=== PATIENT | female | born 2005 | race Caucasian/White ===

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

== ENCOUNTER 2025-09-04 19:15 | Observation (INO) | payer OTHER, SELFPAY ==
[2025-09-04] VITALS (15 sets, daily range): BP systolic 112–150; BP diastolic 52–92; PULSE 80–134; RESP 14–21; TEMP 36.7; O2SAT 98–100; BMI 23.4
--- OUTSIDE RECORDS SUMMARY | 2025-09-04 01:37 | XMS_ITS | Encounter Summary ---
Author Organization [facility] Address [address] [place] [address] Care Team Providers Care Verify Rep Name Role Phone Dedra Jo MD Primary Care Provider [phone] Reason for Visit * Reason Comments Fall From second floor aw kimberly * Auth/Cert (Routine) Specialty Diagnoses / Procedures Referred By Isacc t Referred To Contact Neurology Ponce Gillis ([facility])MD [address] [place] [phone] Phone: tel: fax: [facility] [address] [address] Phone: tel: fax: Referral ID Status Reason Start Date Expiration Date Visits Re quested Visits Authorized [id number] 1 1 Encounter Details Date Type Department Care Team (Latest Contact Info) Description 09/04/2025 1:37 AM GROCERY BUYER - 09/04/2025 2:18 PM GROCERY BUYER Hospital Encounter [facility] [address] [phone] Pacheco Cisneros MD [address] [place] [phone] Ponce Gillis ([facility])MD 1 [facility] [address] [place] [address] Fall Discharge Disposition: Home or Self Care Social History Tobacco Use Types Packs/Day Years Used Date Smoking Tobacco: Never Smokeless Tobacco: Never Alcohol Use Standard Drinks/Week Comments Never 0 (1 standard drink = 0.6 oz pur e alcohol) Food Insecurity Answer Date Recorded Do you find you are eating l ess than you should because you can t pay for food? No 09/04/2025 Transportation Needs Answer Date Record ed Have you gone without health care because you didn t have a way to get there? Or worry about transportation for future doctor visits, pick up truck driver medication, etc.? No 2024 Housing Stability Answer Date Recorded Do you worry you won t have a steady place to sleep or struggle to pay rent or mortgage? No 09/04/2025 Utility Needs Answer Date Recorded Do you have difficulty payin g for utility costs (electric, water or gas bills)? No 09/04/2025 Medication Needs Answer Date Recorded Have you skipped taking medi cation due to cost or worry you can t afford new medications? No 09/04/2025 Feeling Safe Answer Date Recorded Are you in a relationship wi th someone who hurts you emotionally and/or physically? No 09/04/2025 Food Insecurity Answer Date Recorded Patient needs follow up regardin 09/04/2025 Transportation Needs Answer Date Record ed Patient needs follow up regardin 09/04/2025 Utility Needs Answer Date Recorded Patient needs follow up regardin 09/04/2025 Comments Unknown Sex and Gender Information Value Date Recorded Sex Assigned at Not on file Legal Sex Female 7:03 AM GROCERY BUYER Gender Identity Not on file Sexual Orientation Not on file documented as of this encounter Last Filed Vital Signs Vital Sign Reading Time Taken Comments Blood Pressure 128/58 09/04/2025 7:00 AM GROCERY BUYER Pulse 103 09/04/2025 3:11 AM GROCERY BUYER Temperature 37 C (98.6 F) 09/04/2025 6:55 AM GROCERY BUYER Respiratory Rate 16 09/04/2025 7:00 AM GROCERY BUYER Oxygen Saturation 100% 09/04/2025 7:00 AM GROCERY BUYER Inhaled Oxygen Concentration - - Weight 58 kg (127 lb 13.9 oz) 09/04/2025 1:45 AM GROCERY BUYER Height 152.4 cm (5') 09/04/2025 1:45 AM GROCERY BUYER Body Mass Index 24.97 09/04/2025 1:45 AM GROCERY BUYER documented in this encounter Discharge Instructions * Discharge Instructions* Lakisha Kapadia RN - 09/04/2025 11:39 AM GROCERY BUYER Patient Care Instructions: Should you experience any of the following symptoms after discharge, contact your healthcare provider: Increase in pain Temperature greater than 101 degrees Fahrenheit. Светлана Patel is being discharged via: private vehicle to Home Светлана Patel is accompanied by: Family member A nurse has reviewed my medication(s), side effects and discharge instructions with me and/or my caregivers. Reference Information: An ???After your visit?? education sheet was printed and given to the patient/family at discharge?Yes Patient/family initials A copy of this information is available to the following physicians who has/have access to the electronic health record and he/she have been notified via electronic transmission Ponce Gillis Chi, MD and Dedra Jo MD ERY BUYER * Discharge Instr - Activity* Lakisha Kapadia RN - 09/04/2025 11:38 AM GROCERY BUYER See Discharge Instructions. ERY BUYER * Discharge Instr - Diet* Lakisha Kapadia RN - 09/04/2025 11:38 AM GROCERY BUYER See Discharge Instructions. ERY BUYER * Attachments The following attachments cannot be sent through Care Everywhere. * Arm Fracture (Czech) * Hydrocodone Combination Products (Czech) documented in this encounter Medications at Time of Discharge hydrOXYzine pamoate (VISTARIL) 25 mg capsule Take 25 mg by mouth every 6 hours. 14 days 04/04/2025 HYDROcodone-acet aminophen (NORCO) 10-325 mg TabletIndication s:Closed fracture of distal ends of radius and ulna of both forearms, initial encounter Take 1 Tablet by mouth every 4 hours as needed for Pain. Max Daily Amount: 6 Tablets 20 Tablet 09/04/2025 naloxone (NARCAN) 4 mg/spray [place], Non-Aerosol EMERGENCY USE ONLY: Administer 1 spray (4 mg) in one nostril one time. May repeat in alternating nostrils every 2-3 min until responsive or EMS arrives. 2 Each 3 09/04/2025 ondansetron (ZOFRAN ODT) 4 mg Tablet, Rapid Dissolve Take 1 Tablet (4 mg) by mouth every 8 hours as needed for Nausea/Emesis. Dissolve tablet on top of tongue, then swallow with saliva. 30 Tablet 09/04/2025 MELATONIN ORAL Take by mouth. documented as of this encounter Progress Notes * Lakisha Kapadia RN - 09/04/2025 11:50 AM CST Spoke to pt and family about needing to follow up with ortho as soon as possible. ([place] not live[place] and is returning to home state) ERY BUYER documented in this encounter H&P Notes * Ponce Gillis Chi, MD - 09/04/2025 10:07 AM CST History & Physical PATIENT: Светлана Patel AGE: 20 y.o. CSN: [id number] Date of : 2005 Primary Care Doctor: Dedra oJ MD Referring Physician: ED Chief Complaint: 20 y.o. female presenting with fall HPI: 20 y/o woman brought to ED last night after fall from 2nd story balcony, unknown mechanism, + ETOH,landed on her outstretched wrists, denies head trauma or LOC. She sustained bilateral wrist fractures which were reduced and splinted in the ED. This morning she complains of some back and wrist pain. She denies shortness of breath, chest pain, pelvic, abdominal or lower extremity pain. Past Medical History: Past Medical History: Diagnosis Date Allergy Headache Hearing reduced Patient denies relevant medical history Past Surgical History: Past Surgical History: Procedure Laterality Date PT DENIES RELEVANT SURGICAL HISTORY Current Medications: Outpatient Medications Marked as Taking for the 09/04/25 encounter (Hospital Encounter) Medication Sig Dispense Refill hydrOXYzine pamoate (VISTARIL) 25 mg capsule Take 25 mg by mouth every 6 hours. 14 days Medication Allergies:No Known Allergies Family History: Family History Problem Relation Name Age of Onset Healthy Father Healthy Mother Social History: Social History Tobacco Use Smoking status: Never Smokeless tobacco: Never Substance Use Topics Alcohol use: Never Review of Systems: negative except as per HPI Physical Exam: BP 128/58 Pulse (!) 103 Temp 98.6 ??F (37 ??C) (Oral) Resp 16 Ht 5' (1.524 m) Wt 58 kg (127 lb 13.9 oz) SpO2 100% BMI 24.97 kg/m?? General Appearance: alert, in no distress, Head: atraumatic, Normocephalic, without obvious abnormality Eyes: conjunctivae/corneas clear. PERRL, EOM's intact. Nose: Nares normal. Septum midline. Mucosa normal. Throat: Lips, mucosa (moist), and tongue normal. Teeth and gums normal, Neck: supple, symmetrical, trachea midline, no C spine tenderness Heart: regular rate and rhythm Chest Wall: no tenderness Lungs: normal respiratory effort Abdomen: Soft, non-tender. Back: symmetric, no curvature. ROM normal. No CVA tenderness. Extremities: bilateral upper extremity forearm splints; neurovascularly intact; lower extremities negative for trauma with normal ROM Neurologic: Alert and oriented X 3 Skin: Skin color, texture, turgor normal. No rashes or lesions Data Review: CBC: Lab Results Component Value Date/Time WBC 10.8 09/04/2025 02:05 AM RBC 4.11 (L) 09/04/2025 02:05 AM HGB 13.0 09/04/2025 02:05 AM HCT 35.9 (L) 09/04/2025 02:05 AM PLT 457 (H) 09/04/2025 02:05 AM BMP: Lab Results Component Value Date/Time NA 140 09/04/2025 02:05 AM K 3.0 (LL) 09/04/2025 02:05 AM CL 107 09/04/2025 02:05 AM CO2 14 (LL) 09/04/2025 02:05 AM CA 9.1 09/04/2025 02:05 AM BUN 12 09/04/2025 02:05 AM CREAT 0.72 09/04/2025 02:05 AM GLUCOSE 127 (H) 09/04/2025 02:05 AM ANIONGAP 19 (H) 09/04/2025 02:05 AM LFTS: Lab Results Component Value Date/Time TOTALPROTEIN 7.9 09/04/2025 02:05 AM ALBUMIN 4.4 09/04/2025 02:05 AM BILITOTAL 0.5 09/04/2025 02:05 AM ALKPHOS 64 09/04/2025 02:05 AM AST 254 (H) 09/04/2025 02:05 AM ALT 183 (H) 09/04/2025 02:05 AM Coagulation: Lab Results Component Value Date/Time PT 11.4 09/04/2025 02:05 AM INR 1.0 09/04/2025 02:05 AM APTT 22.0 (L) 09/04/2025 02:05 AM Radiology review: I personally reviewed the images of her CT head, C spine, chest/abdomen/pelvis and X-rays of her bilateral upper extremities PROCEDURE: CT Chest, Abdomen and Pelvis With Contrast DATE: 09/04/2025 3:49 AM COMPARISON: None HISTORY: Polytrauma, blunt TECHNIQUE: Post contrast CT with sagittal and coronal 2-D reformats. Automated CT Dose Reduction technique. FINDINGS: Motion blur CT CHEST: No obvious pneumothorax or pleural effusion. No pericardial effusion. Nonspecific subpleural densities in the lateral aspect of the right middle lobe. Subjacent to the right rib fractures cannot be excluded on this motion limited exam. Heart size is normal. Normal enhancement of central vessels. No mediastinal hematoma. Tracheobronchial tree is patent. No subcutaneous emphysema. No obvious fracture in the visualized thoracic spine. Subtle fractures of the sternum cannot be excluded on this motion limited exam CT ABDOMEN: Liver, spleen, both adrenal glands, pancreas and the right kidney are normal. The left kidney demonstrates an interpolar simple cyst measuring approximately 1.7 cm in diameter. Gallbladder is well distended. Normal enhancement of IVC and aorta. No ascites, hernias, free air in the peritoneal cavity or bowel obstruction/ileus. No obvious fractures or lumbar spine. CT PELVIS: Intrauterine contraceptive device is seen. Small amount of fluid is seen in the cul-de-sac measuring 13 Hounsfield units in density. A small irregularity is seen in the left ovary probably due to recent ovulation. Right ovary appears normal in size. Mild stool burden is noted in the distal colon. Moderate stool burden is seen in the cecum. The appendix appears normal. The bladder is well distended. No hernias. No pelvic muscle hematomas. Bilateral SI joints, pubic symphysis and hip joints appear well aligned. Signed by Chace Camilo MD 09/04/2025 4:[address] scans are performed using dose optimization techniques as appropriate to a performed exam including automated exposure control and/or standardized protocols for targeted exams where dose is matched to indication/reason for exam/patient size. IMPRESSION: 1. Nonspecific subpleural densities in the lateral aspect of the right middle lobe. Subjacent right rib fractures cannot be excluded on this motion limited exam. 2. No obvious fracture in the thoracic spine. 3. No obvious fracture in the lumbar spine. 4. Small amount of free fluid in the cul-de-sac. This could be due to recent ovulation. 5. Simple cyst in the left kidney. No further workup is necessary. CT of the thoracic and lumbar spine: 09/04/2025 4:30 AM HISTORY: 20 years old Female with Back trauma, no prior imaging (Age >= 16y). COMPARISON: None available TECHNIQUE: Multiple axial contiguous images were obtained through the thoracic and lumbar spine without intravenous contrast administered. Coronal and sagittal reconstructed images were also obtained and examined. This exam was performed according to our departmental dose-optimization program, which includes automated exposure control, adjustment of the mA and/or KV according to the patient's size and/or use of iterative reconstruction technique. FINDINGS: The visualized vertebral bodies appear to be well aligned. No significant loss of vertebral body height is seen. No significant disc space narrowing is seen. There are no findings to suggest an acute fracture or subluxation. The visualized sacroiliac joints appear grossly unremarkable. The visualized kidneys demonstrate no evidence of hydronephrosis. No large pleural effusion is seen. Signed by Afua Pacheco DO 09/04/2025 4:[address] scans are performed using dose optimization techniques as appropriate to a performed exam including automated exposure control and/or standardized protocols for targeted exams where dose is matched to indication/reason for exam/patient size. IMPRESSION: There are no findings to suggest an acute fracture or subluxation at the thoracic or lumbar spine. CT CERVICAL SPINE: 09/04/2025 4:29 AM TECHNIQUE: Axial contiguous images were obtained through the cervical spine without intravenous contrast. Sagittal and coronal reconstructions were also reviewed. This exam was performed according to our departmental dose-optimization program, which includes automated exposure control, adjustment of the mA and/or KV according to the patient's size and/or use of iterative reconstruction technique. COMPARISON: None available HISTORY: 20 years old Female with Neck trauma, dangerous injury mechanism (Age 16-64y). FINDINGS: The vertebral bodies appear well aligned. The vertebral body heights appear well maintained. No significant pre-vertebral soft tissue swelling is noted. No acute fracture or subluxation is noted. No significant intervertebral disc space narrowing is seen. The visualized brain parenchyma appears unremarkable. The craniocervical junction is unremarkable. Signed by Afua Pacheco DO 09/04/2025 4:[address] scans are performed using dose optimization techniques as appropriate to a performed exam including automated exposure control and/or standardized protocols for targeted exams where dose is matched to indication/reason for exam/patient size. IMPRESSION: There are no findings to suggest an acute fracture or subluxation within the cervical spine. PROCEDURE: CT of the brain without intravenous contrast DATE: 09/04/2025 COMPARISON: None HISTORY: Closed head injury. Patient fell from second-story TECHNIQUE: Axial images were obtained through the brain without intravenous contrast. CT dose modulation was utilized. FINDINGS: The ventricles are midline and normal in size. There is no midline shift or mass effect. No intracranial hemorrhage or extra-axial fluid collection is identified. The calvarium is intact. The visualized paranasal sinuses are well aerated. Signed by Lisa Osborn MD 09/04/2025 4:[address] scans are performed using dose optimization techniques as appropriate to a performed exam including automated exposure control and/or standardized protocols for targeted exams where dose is matched to indication/reason for exam/patient size. IMPRESSION: No acute intracranial process. Left Wrist Date: 09/04/2025 1:58 AM History: Left wrist pain. Initial visit. Technique: AP, lateral and both oblique projections FINDINGS: Normal density of the skeletal structures. Comminuted distal radius fracture with dorsal displacement, impaction and overlap of the fragments. Disruption of the DRUJ is also suspected, intra-articular extension of the fracture at the radiocarpal joint. Deformity of the wrist related to displacement of the hand with the distal radius fragment, dorsal. Signed by Florencio Bloom MD 09/04/2025 7:23 AM IMPRESSION: Colles' type fracture; intra-articular extension. Dorsal displacement. Assessment: 20 y/o woman with bilateral wrist fractures, no other acute injuries Plan: Orthopedic surgery consulted - recommending surgical repair as outpatient in [place] where she lives No other acute injuries Stable for discharge Ponce Gillis MD ERY BUYER documented in this encounter Consult Notes * Eddy Urban MD - 09/04/2025 7:04 AM CST ORTHOPEDIC CONSULTATION DATE: 09/04/2025 PATIENT: Светлана Patel/20 y.o./female : 2005 ADMIT DATE: 09/04/2025 ADMITTING PHYSICIAN: @[email or web address]@ PCP: Dedra Jo MD REASON FOR CONSULTATION: bilateral wrist injuries HPI: Patient is a 20 y.o. female presents with a fall from significant height off a balcony and bilateral wrist pain.. Patient Active Problem List Diagnosis Code Recurrent acute otitis media H66.90 Dysfunction of eustachian tube H69.90 Closed fracture of temporal bone ([facility]) S02.19XA Fall W19.XXXA Closed fracture of left side of base of skull ([facility]) S02.102A Abrasion of left shoulder S40.212A Scalp contusion S00.03XA Closed fracture of distal ends of radius and ulna of both forearms S52.501A, S52.601A, S52.502A, S52.602A Past Medical History: Diagnosis Date Allergy Headache Hearing reduced Patient denies relevant medical history Past Surgical History: Procedure Laterality Date PT DENIES RELEVANT SURGICAL HISTORY Family History Problem Relation Name Age of Onset Healthy Father Healthy Mother Social History Tobacco Use Smoking status: Never Smokeless tobacco: Never Substance Use Topics Alcohol use: Never (Not in a hospital admission) Allergies: No Known Allergies Review of systems: Pertinent items are noted in HPI. PHYSICAL EXAMINATION: Patient Vitals for the past 8 hrs: BP Temp Temp src Pulse Resp SpO2 Height Weight 09/04/25 0655 137/52 98.6 ??F (37 ??C) Oral -- 15 100 % -- -- 09/04/25 0650 125/65 -- -- -- 16 99 % -- -- 09/04/25 0645 133/57 -- -- -- 19 100 % -- -- 09/04/25 0640 133/62 -- -- -- 16 100 % -- -- 09/04/25 0635 125/56 -- -- -- 17 100 % -- -- 09/04/25 0630 (!) 119/91 -- -- -- 18 100 % -- -- 09/04/2525 124/76 -- -- -- -- 100 % -- -- 09/04/25 0620 138/64 -- -- -- 17 100 % -- -- 09/04/2515 -- -- -- -- 16 100 % -- -- 09/04/25 0610 136/60 -- -- -- 19 100 % -- -- 09/04/25 0605 -- -- -- -- 18 -- -- -- 09/04/25 0600 -- -- -- -- 20 -- -- -- 09/04/25 0555 -- -- -- -- 16 -- -- -- 09/04/25 0445 138/64 -- -- -- -- 98 % -- -- 09/04/25 0430 136/61 -- -- -- 19 100 % -- -- 09/04/25 0415 135/63 -- -- -- 16 100 % -- -- 09/04/25 0410 -- -- -- -- 18 100 % -- -- 09/04/25 0405 139/62 -- -- -- 16 100 % -- -- 09/04/25 0340 -- 99.2 ??F (37.3 ??C) Oral -- -- 97 % -- -- 09/04/25 0330 (!) 110/42 -- -- -- 19 100 % -- -- 09/04/25 0315 -- -- -- -- 16 100 % -- -- 09/04/25 0311 -- -- -- (!) 103 20 100 % -- -- 09/04/25 0300 (!) 110/40 -- -- -- 18 100 % -- -- 09/04/25 0245 -- -- -- -- 16 98 % -- -- 09/04/25 0243 118/50 -- -- -- 19 100 % -- -- 09/04/25 0228 -- -- -- -- -- 100 % -- -- 09/04/25 0215 137/58 -- -- -- 16 100 % -- -- 09/04/25 0200 126/58 -- -- -- 18 100 % -- -- 09/04/25 0154 -- -- -- -- -- 100 % -- -- 09/04/25 0145 123/52 97.8 ??F (36.6 ??C) Oral -- 20 98 % 5' (1.524 m) 58 kg (127 lb 13.9 oz) General: Currently calm and comfortable and in NAD. Heent: Head atraumatic, normocephalic. Heart: Regular rate and rhythm. Lungs: Clear to auscultation bilaterally. Abdomen: Soft, nontender. Extremities: The bilateral wrists are in sugar tong splints after reduction by ED physician/ She moves fingers well and has brisk refill and is fully sensate. LABS: Lab Results Component Value Date/Time WBC 10.8 09/04/2025 02:05 AM HGB 13.0 09/04/2025 02:05 AM HCT 35.9 (L) 09/04/2025 02:05 AM PLT 457 (H) 09/04/2025 02:05 AM MCV 87.3 09/04/2025 02:05 AM Lab Results Component Value Date/Time NA 140 09/04/2025 02:05 AM K 3.0 (LL) 09/04/2025 02:05 AM CL 107 09/04/2025 02:05 AM CO2 14 (LL) 09/04/2025 02:05 AM CA 9.1 09/04/2025 02:05 AM BUN 12 09/04/2025 02:05 AM CREAT 0.72 09/04/2025 02:05 AM GLUCOSE 127 (H) 09/04/2025 02:05 AM ANIONGAP 19 (H) 09/04/2025 02:05 AM Lab Results Component Value Date/Time INR 1.0 09/04/2025 02:05 AM PT 11.4 09/04/2025 02:05 AM X-RAYS: Bilateral displaced distal radius fractures , more comminuted on the left. ASSESSMENT: Patient Active Problem List Diagnosis Code Recurrent acute otitis media H66.90 Dysfunction of eustachian tube H69.90 Closed fracture of temporal bone (CMS/HCC) S02.19XA Fall W19.XXXA Closed fracture of left side of base of skull (CMS/HCC) S02.102A Abrasion of left shoulder S40.212A Scalp contusion S00.03XA Closed fracture of distal ends of radius and ulna of both forearms S52.501A, S52.601A, S52.502A, S52.602A PLAN: She is being admitted to trauma from the mechanism and elevated liver enzymes. I discussed with her and her boyfriend's mother, whom she is here vacationing with. These will need surgery, atleast the left one will. She is intoxicated and does not live here and has no sign of acute carpal tunnel issues. I recommend when stable enough for discharge, she return home to [place] and she can have surgery there near her family when it is safer after her swelling goes down. She voiced finding a hand surgeon in [place]. All questions answered. LDD ERY BUYER documented in this encounter ED Notes * Arnoldo Mendez RN - 09/04/2025 6:20 AM CST Closed reduction of Bilateral closed fracture of distal radius ulna successfully done by Dr. Cisneros, splinting done by him as well- elevated affected extremity ERY BUYER ERY BUYER * Arnoldo Mendez RN - 09/04/2025 5:20 AM CST Consent for conscious sedation for manual reduction of bilateral wrist fracture signed and secured ERY BUYER * Arnoldo Mendez RN - 09/04/2025 1:50 AM CST No need for CT scans as per Dr. Cisneros ERY BUYER * Arnoldo Mendez RN - 09/04/2025 1:46 AM CST Received from triage with complaint of fall from [address] [place] [address] approximately 15-20 ft as claimed, doesn't know what really happen, denies hitting her head, not on any blood thinners, noted with swelling and deformity on bilateral wrist, complaint of lower back pain, able to walk from the house to the car, denies neck pain, no other obvious injuries , AAOx4, not in any sign of distress. Placed on prepared bed with side rails up, wheels locked and bed on lowest position, call castañeda within reach. Attached to monitor ERY BUYER * Arnoldo Mendez RN - 09/04/2025 1:[address] Cisneros at bedside and downgraded patient ERY BUYER * Pacheco Cisneros MD - 09/04/2025 1:35 AM CSTAssociated Order(s): Critical Care; Moderate Sedation; Fracture and Fracture Dislocation; Fracture and Fracture Dislocation HISTORY OF PRESENT ILLNESS Светлана Patel, a 20 y.o. female presents to the ED with a Chief Complaint of Fall Subjective PAST MEDICAL HISTORY REVIEWED MEDICAL: Patient has a past medical history of Allergy, Headache, Hearing reduced, and Patient denies relevant medical history. SURGICAL: Patient has a past surgical history that includes pt denies relevant surgical history. FAMILY: Patient's family history includes Healthy in her father and mother. SOCIAL: reports that she has never smoked. She has never used smokeless tobacco. She reports that she does not drink alcohol and does not use drugs. No history on file. Social History Other Topics Concern Attends Daycare/Nursery Not Asked Other Children in Home Not Asked Attends School (Grade in Comment) Not Asked Pets in Home Not Asked Firearms in Home Not Asked Seat Belt/Child Restraint Not Asked Foster Child Not Asked Second Hand Smoke Exposure Not Asked Lives with Biologic Parent Not Asked Wears Bike Helmet Not Asked Multiple Not Asked ALLERGIES Patient has no known allergies. HOME MEDICATIONS Current Discharge Medication List CONTINUE these medications which have NOT CHANGED Details hydrOXYzine pamoate (VISTARIL) 25 mg capsule Take 25 mg by mouth every 6 hours. 14 days MELATONIN ORAL Take by mouth. Objective PHYSICAL EXAM INITIAL VS BP: 123/52 (09/04/25 014), Heart Rate: (!) 121 bpm (09/04/25144), Resp: 20 (09/04/25144), Pulse: (!) 103 (09/04/25 0311), Temp: 97.8 ??F (36.6 ??C) (09/04/25144), Temp src: Oral (09/04/25144), SpO2: 98 % (09/04/25144), Height: 5' (152.4 cm) (09/04/25144), Weight: 58 kg (127 lb 13.9 oz)(09/04/25144), BMI (Calculated): 24.97 (09/04/25144) No LMP recorded. Physical Exam Vitals and nursing note reviewed. Constitutional: General: She is not in acute distress. Appearance: Normal appearance. She is not ill-appearing. Comments: Body mass index is 24.97 kg/m??. HENT: Head: Normocephalic and atraumatic. Eyes: Extraocular Movements: Extraocular movements intact. Conjunctiva/sclera: Conjunctivae normal. Pupils: Pupils are equal, round, and reactive to light. Cardiovascular: Rate and Rhythm: Regular rhythm. Tachycardia present. Pulses: Normal pulses. Heart sounds: Normal heart sounds. Pulmonary: Effort: Pulmonary effort is normal. No tachypnea, accessory muscle usage or respiratory distress. Breath sounds: Normal breath sounds. No decreased breath sounds, wheezing, rhonchi or rales. Abdominal: Palpations: Abdomen is soft. Tenderness: There is no abdominal tenderness. There is no guarding or rebound. Musculoskeletal: General: Normal range of motion. Cervical back: Normal range of motion. Comments: Deformities to the bilateral wrist with tenderness. Neurovascularly intact. No cervical, thoracic, lumbar midline spinal tenderness, step-off, deformity. No chest wall tenderness. Extremities palpated without other areas of tenderness, other major joints ranged without pain. Skin: General: Skin is warm and dry. Capillary Refill: Capillary refill takes less than 2 seconds. Neurological: Mental Status: Mental status is at baseline. GCS: GCS eye subscore is 4. GCS verbal subscore is 5. GCS motor subscore is 6. Cranial Nerves: Cranial nerves 2-12 are intact. Sensory: Sensation is intact. Motor: Motor function is intact. Coordination: Coordination is intact. DIAGNOSTICS LAB: CBC WITH DIFFERENTIAL - Abnormal Result Value WBC 10.8 RBC 4.11 (*) HEMOGLOBIN 13.0 HEMATOCRIT 35.9 (*) MCV 87.3 MCH 31.6 MCHC 36.2 RDW 11.0 (*) RDW-STDEV 35.7 (*) PLATELETS 457 (*) MPV 9.3 NEUTROPHILS 38 (*) LYMPHOCYTES 53 (*) MONOCYTES 8 EOSINOPHILS 0 BASOPHILS 0 IMMATURE GRANULOCYTES 0 NEUTROPHIL ABSOLUTE 4.07 LYMPHOCYTE ABSOLUTE 5.71 (*) MONOCYTE ABSOLUTE 0.89 (*) EOSINOPHIL ABSOLUTE 0.04 BASOPHILS ABSOLUTE 0.04 IMMATURE GRANULOCYTES ABSOLUTE <0.03 COMPREHENSIVE METABOLIC PANEL - Abnormal SODIUM 140 POTASSIUM 3.0 (*) CHLORIDE 107 CO2 14 (*) CALCIUM 9.1 BUN 12 CREATININE 0.72 GLUCOSE 127 (*) TOTAL PROTEIN 7.9 ALBUMIN 4.4 BILIRUBIN TOTAL 0.5 ALKALINE PHOSPHATASE 64 AST 254 (*) ALT 183 (*) GFR >60 ANION GAP 19 (*) OSMOLALITY, CALCULATED 281 ETHANOL LEVEL - Abnormal ETHANOL 19.78 (*) ETHANOL % 0.02 PTT - Abnormal PTT 22.0 (*) HCG QUALITATIVE, BLOOD - Normal HCG QUAL, BLOOD Negative PROTIME-INR - Normal PROTIME 11.4 INR 1.0 EXTRA TUBE EXTRA TUBE (BLUE) TYPE AND SCREEN ABO GROUP O RH (D) TYPE Positive ANTIBODY SCREEN Negative RADIOLOGY: CT CHEST ABDOMEN PELVIS W CONT Radiologist Impression IMPRESSION: 1. Nonspecific subpleural densities in the lateral aspect of the right middle lobe. Subjacent right rib fractures cannot be excluded on this motion limited exam. 2. No obvious fracture in the thoracic spine. 3. No obvious fracture in the lumbar spine. 4. Small amount of free fluid in the cul-de-sac. This could be due to recent ovulation. 5. Simple cyst in the left kidney. No further workup is necessary. CT THORACIC LUMBAR WO CONTRAST Radiologist Impression IMPRESSION: There are no findings to suggest an acute fracture or subluxation at the thoracic or lumbar spine. CT CERVICAL SPINE WO CONTRAST Radiologist Impression IMPRESSION: There are no findings to suggest an acute fracture or subluxation within the cervical spine. CT HEAD WO CONTRAST Radiologist Impression IMPRESSION: No acute intracranial process. EKG: PROCEDURES Critical Care Performed by: Pacheco Cisneros MD Authorized by: Pacheco Cisneros MD Critical care provider statement: Critical care time (minutes): 31 Critical care time was exclusive of: Separately billable procedures and treating other patients Critical care was necessary to treat or prevent imminent or life-threatening deterioration of the following conditions: Trauma Critical care was time spent personally by me on the following activities: Development of treatmentplan with patient or surrogate, discussions with consultants, evaluation of patient's response to treatment, examination of patient, obtaining history from patient or surrogate, ordering and performing treatments and interventions, ordering and review of laboratory studies, ordering and review of radiographic studies, pulse oximetry and re-evaluation of patient's condition Moderate Sedation Date/Time: 09/04/2025 1:35 AM Performed by: Pacheco Cisneros MD Authorized by: Pacheco Cisneros MD Consent: Consent obtained: Verbal and written Consent given by: Patient Risks, benefits, and alternatives were discussed: yes Risks discussed: Allergic reaction, dysrhythmia, inadequate sedation, nausea, vomiting, respiratorycompromise necessitating ventilatory assistance and intubation, prolonged sedation necessitating reversal and prolonged hypoxia resulting in organ damage Alternatives discussed: Analgesia without sedation and anxiolysis [place] protocol: Procedure explained and questions answered to patient or proxy's satisfaction: yes Relevant documents present and verified: yes Immediately prior to procedure a time out was called: yes Patient identity confirmation method: Verbally with patient, arm band and hospital-assigned identification number Indications: Procedure performed: Fracture reduction Procedure necessitating sedation performed by: Physician performing sedation Intended level of sedation: Moderate (conscious sedation) Pre-sedation assessment: NPO status caution: urgency dictates proceeding with non-ideal NPO status ASA classification: class 1 - normal, healthy patient Neck mobility: normal Mouth openin or more finger widths Thyromental distance: 4 finger widths Mallampati score: I - soft palate, uvula, fauces, pillars visible Pre-sedation assessments completed and reviewed: airway patency, anesthesia/sedation history, cardiovascular function, hydration status, mental status, nausea/vomiting, pain level, respiratory function and temperature History of difficult intubation: no Has patient had previous problems with sedation or from the sedating agent (Propofol)?: No Has the patient been diagnosed with sleep apnea?: No Pre-sedation assessment completed: 09/04/2025 5:30 AM Immediate pre-procedure details: Reassessment: Patient reassessed immediately prior to procedure Reviewed: vital signs, relevant labs/tests and NPO status Verified: bag valve mask available, emergency equipment available, intubation equipment available, IV patency confirmed, oxygen available, reversal medications available and suction available Procedure details: Sedation start time: 09/04/2025 5:50 AM Sedation: Propofol Intra-procedure monitoring: Blood pressure monitoring, satellite project site monitor, continuous capnometry, continuous pulse oximetry, frequent LOC assessments and frequent vital sign checks Intra-procedure events: none Sedation end time: 09/04/2025 6:30 AM Total sedation time (minutes): 40 Post-procedure details: Post-sedation assessment completed: 09/04/2025 7:00 AM Attendance: Constant attendance by certified staff until patient recovered Recovery: Patient returned to pre-procedure baseline Post-sedation assessments completed and reviewed: airway patency, cardiovascular function, hydration status, mental status, nausea/vomiting, pain level, respiratory function and temperature Patient is stable for discharge or admission: yes Patient tolerance: Tolerated well, no immediate complications Fracture and Fracture Dislocation Date/Time: 09/04/2025 1:35 AM Performed by: Pacheco Cisneros MD Authorized by: Pacheco Cisneros MD Consent: Consent obtained: Verbal and written Consent given by: Patient Risks, benefits, and alternatives were discussed: yes Risks discussed: Nerve damage, pain and vascular damage Alternatives discussed: No treatment, delayed treatment, alternative treatment, referral and observation [place] protocol: Procedure explained and questions answered to patient or proxy's satisfaction: yes Relevant documents present and verified: yes Imaging studies available: yes Required blood products, implants, devices, and special equipment available: yes Immediately prior to procedure, a time out was called: yes Patient identity confirmed: Hospital-assigned identification number, verbally with patient and arm band Injury: Injury location: Forearm Forearm injury location: L forearm Forearm fracture type: distal radial Pre-procedure details: Distal neurologic exam: Normal Distal perfusion: distal pulses strong and brisk capillary refill Range of motion: reduced Sedation: Sedation type: Moderate sedation Procedure details: Manipulation performed: yes Skeletal traction used: yes Reduction successful: yes X-ray confirmed reduction: yes Supplies used: Cotton padding, elastic bandage and fiberglass Additional details: Performed by me Post-procedure details: Distal neurologic exam: Normal Distal perfusion: distal pulses strong and brisk capillary refill Range of motion: not applicable Procedure completion: Tolerated well, no immediate complications Fracture and Fracture Dislocation Date/Time: 09/04/2025 1:35 AM Performed by: Pacheco Cisneros MD Authorized by: Pacheco Cisneros MD Consent: Consent obtained: Verbal and written Consent given by: Patient Risks, benefits, and alternatives were discussed: yes Risks discussed: Nerve damage, pain and vascular damage Alternatives discussed: No treatment, delayed treatment, alternative treatment, referral and observation [place] protocol: Procedure explained and questions answered to patient or proxy's satisfaction: yes Relevant documents present and verified: yes Imaging studies available: yes Required blood products, implants, devices, and special equipment available: yes Immediately prior to procedure, a time out was called: yes Patient identity confirmed: Hospital-assigned identification number, verbally with patient and arm band Injury: Injury location: Forearm Forearm injury location: R forearm Forearm fracture type: distal radial Pre-procedure details: Distal neurologic exam: Normal Distal perfusion: distal pulses strong and brisk capillary refill Range of motion: reduced Sedation: Sedation type: Moderate sedation Procedure details: Manipulation performed: yes Skeletal traction used: yes Pin inserted: no Reduction successful: yes X-ray confirmed reduction: yes Supplies used: Cotton padding, fiberglass and elastic bandage Additional details: Performed by me Post-procedure details: Distal neurologic exam: Unchanged Distal perfusion: distal pulses strong Range of motion: normal Procedure completion: Tolerated well, no immediate complications MEDICAL DECISION MAKING AND PLAN OF CARE ED Course as of 09/04/25 Kervin Morton Sep 04, 2025 0158 XR WRIST 2 VW BILAT INDEPENDENT INTERPRETATION: Bilateral dorsally angulated distal radius fractures. [AF] 0309 CBC WITH DIFFERENTIAL(!) normal [AF] 0309 COMPREHENSIVE METABOLIC PANEL(!!) Hypokalemia, low CO2, elevated AST and ALT. [AF] 0310 Back to reevaluate patient now is complaining of abdominal pain and tenderness. [AF] 0311 HCG QUAL, BLOOD: Negative [AF] 0312 Ortho paged for consult [AF] [address] Urban, recommend surgery admission given the mechanism and transaminitis. Recommends reduction and splinting of the bilateral distal radial fractures. [AF] [address] Gillis, accepts for admission [AF] 0515 Consented for sedation and reduction. [AF] 0657 XR WRIST 2 VW BILAT INDEPENDENT INTERPRETATION: Improved alignment of bilateral distal radius fractures however still slight displacement noted especially on the left. [AF] ED Course User Index [AF] Pacheco Cisneros MD Medical Decision Making Amount and/or Complexity of Data Reviewed Labs: ordered. Decision-making details documented in ED Course. Radiology: ordered. Decision-making details documented in ED Course. Risk Prescription drug management. Decision regarding hospitalization. Patient presenting status post fall 15 to 20 feet off of a balcony onto her bilateral outstretched arms. Obvious deformity to her bilateral wrists/distal forearms. Neurovascular intact distally. She denies hitting her head or losing consciousness no blood thinners. Complaining of mild low back paininitially downgraded however upon significant traumatic adenitis reevaluated now complaining of right upper quadrant pain and tender to the area sent for full body scans which were negative for significant trauma. X-ray showing bilateral distal radius fractures. Discussed with orthopedics recommends splinting and reduction performed by myself with slight improvement in alignment. Admitted to surgery for further evaluation and management. Differential Diagnoses: Fracture, dislocation, strain, sprain, contusion, hematoma, abrasion, laceration, SAH, ICH, subdural hematoma, epidural hematoma, concussion Patient History and Social Determinants: External Records Reviewed: Outpatient record: Patient seen March 01 for abdominal cramping and palpitations. Historians Other Than the Patient: Spouse or Significant Other Care significantly affected by the following chronic conditions: Mood disorder Care significantly affected by the following Social Determinants of Health: Occasionally has difficulty accessing primary care provider and Poor access to healthcare Management: Patient was admitted, placed on observation, or transferred to another facility. Management of patient was discussed with the following: See ED Course I considered the following discharge prescriptions or medication management in the Emergency Department: Medications were administered in the Emergency Department. See MAR. Diagnostics Review: Rhythm Strip: My interpretation is: Sinus tachycardia with a rate of 110 bpm Independent interpretation of the following test(s) in the Emergency Department: See ED Course Documentation performed with speech to text recognition software which may result in dictation errors. Please reach out for clarification as needed. Clinical Scoring & Consults Medications Administered During the ED Stay from 09/04/2025 0135 to 09/04/2025 0721 Date/Time Order Dose Route Action 09/04/2025 0154 GROCERY BUYER morphine 4 mg/mL injection 4 mg 4 mg IV Given 09/04/2025 0153 GROCERY BUYER ondansetron (ZOFRAN) 4 mg/2 mL injection 4 mg 4 mg IV Given 09/04/2025 0243 GROCERY BUYER HYDROmorphone (DILAUDID) 0.5 mg/0.5 mL syringe 0.5 mg 0.5 mg IV Given 09/04/2025 0250 GROCERY BUYER potassium CHLORIDE (K-DUR,KLOR-CON M20) SR tablet 40 mEq 40 mEq Oral Given 09/04/2025 0350 GROCERY BUYER iopamidoL (ISOVUE-300) 61% injection (drawn from multi-use bulk pack) 100 mL 100 mL IV Contrast Given 09/04/2025 0513 GROCERY BUYER HYDROmorphone (DILAUDID) 0.5 mg/0.5 mL syringe 0.5 mg 0.5 mg IV Given 09/04/2025 0555 GROCERY BUYER propofoL (DIPRIVAN) injection 200 mg IV Admin by Another Clinician (Comment) 09/04/2025 0605 GROCERY BUYER propofoL (DIPRIVAN) injection 80 mg IV Admin by Another Clinician (Comment) 09/04/2025 0631 GROCERY BUYER HYDROmorphone (DILAUDID) 0.5 mg/0.5 mL syringe 0.5 mg 0.5 mg IV Given Current Discharge Medication List CONTINUE these medications which have NOT CHANGED Details hydrOXYzine pamoate (VISTARIL) 25 mg capsule Take 25 mg by mouth every 6 hours. 14 days MELATONIN ORAL Take by mouth. LAST VS BP: 128/58 (09/04/25 0700), Heart Rate: (!) 104 bpm (09/04/25 0655), Resp: 16 (09/04/25 0700), Pulse: (!) 103 (09/04/25 0311), Temp: 98.6 ??F (37 ??C) (09/04/25654), Temp src: Oral (09/04/25654),SpO2: 100 % (09/04/25 0700) CLINICAL IMPRESSION Diagnoses Diagnosis Comment Added By Time Added Closed fracture of distal ends of radius and ulna of both forearms, initial encounter [S52.501A, S52.502A, S52.601A, S52.602A] Pacheco Cisneros MD 09/04/2025 5:16 AM Hypokalemia [E87.6] Pacheco Cisneros MD 09/04/2025 5:16 AM Transaminitis [R74.01] Pacheco Cisneros MD 09/04/2025 5:16 AM DISPOSITION, EDUCATION AND MEDICATION RECONCILIATION Medications reconciled. See after visit summary for patient education on discharged patients. ED Disposition ED Disposition Admit Condition Stable User Pacheco Cisneros MD Date/Time Sun Sep 04, 2025 5:15 AM Comment -- ATTESTATION STATEMENTS Diagnoses Diagnosis Comment Added By Time Added Closed fracture of distal ends of radius and ulna of both forearms, initial encounter [S52.501A, S52.502A, S52.601A, S52.602A] Pacheco Cisneros MD 09/04/2025 5:16 AM Hypokalemia [E87.6] Pacheco Cisneros MD 09/04/2025 5:16 AM Transaminitis [R74.01] Pacheco Cisneros MD 09/04/2025 5:16 AM ERY BUYER documented in this encounter Miscellaneous Notes * Care Plan - Lakisha Kapadia RN - 09/04/2025 11:22 AM CST Problem: Pain, Potential/Actual Goal: Verbalizes/displays acceptable comfort level or baseline comfort level Description: Outcome: Resolved Problem: Infection Risk/Actual Goal: Infection Risk/Actual: Infection prevention, control, or resolution by discharge Description: Outcome: Resolved Problem: Safety/Fall Goal: Safety/Fall: Absence of fall, injury, harm during hospitalization Description: Absence of/reduce fall risk during current hospitalization related to: 1. History of falls 2. Mobility deficits 3. Medications 4. Mental status/LOC/awareness 5. Toileting needs 6. Volume/electrolyte status 7. Communication/sensory 8. Behavior Outcome: Resolved Problem: Discharge Planning Goal: Identify discharge needs upon admission and through discharge Description: Outcome: Resolved Problem: Musculoskeletal Goal: Achieve optimal musculoskeletal function by discharge or maintain baseline function Outcome: Resolved Problem: Skin Goal: Maintain skin integrity and/or promote wound healing by discharge Outcome: Resolved ERY BUYER documented in this encounter Plan of Treatment Not on file documented as of this encounter Procedures Procedure Name Priority Date/Time Associated Diagnosis Comments XR WRIST 2 VW BILAT Stat 09/04/2025 6 :[address] CHEST ABDOMEN PELVIS W CONT Stat 09/04/2025 3:[address] THORACIC LUMBAR WO CONTRAST Stat 09/04/2025 3:[address] CERVICAL SPINE WO CONTRAST Stat 09/04/2025 3:[address] HEAD WO CONTRAST Stat 09/04/2025 3 :49 AM GROCERY BUYER TYPE AND SCREEN Stat 09/04/2025 3:18 AM GROCERY BUYER ETHANOL LEVEL Stat 09/04/2025 3:18 AM GROCERY BUYER EXTRA TUBE (BLUE) Stat 09/04/2025 2:0 5 AM GROCERY BUYER EXTRA TUBE Stat 09/04/2025 2:05 AM GROCERY BUYER HCG QUALITATIVE, SERUM Stat 2:05 AM GROCERY BUYER CBC WITH DIFFERENTIAL Stat 09/04/2025 2:05 AM GROCERY BUYER PTT Stat 09/04/2025 2:05 AM GROCERY BUYER PROTIME-INR Stat 09/04/2025 2:05 AM GROCERY BUYER COMPREHENSIVE METABOLIC PANEL Stat 09/04/2025 2:05 AM GROCERY BUYER XR WRIST 2 VW BILAT Stat 09/04/2025 1 :58 AM GROCERY BUYER MODERATE SEDATION Routine 09/04/2025 1:3 5 AM GROCERY BUYER BASIC FRACTURE AND FRACTURE DISLOCATION TREATMENT Routine 09/04/2025 1:35 AM GROCERY BUYER BASIC FRACTURE AND FRACTURE DISLOCATION TREATMENT Routine 09/04/2025 1:35 AM GROCERY BUYER CRITICAL CARE Routine 09/04/2025 1:35 AM GROCERY BUYER documented in this encounter Results * XR WRIST 2 VW BILAT (09/04/2025 6:34 AM GROCERY BUYER) Anatomical Region Laterality Modality Wrist / Hand Computed Radiogr aphy Impressions 09/04/2025 7:31 AM GROCERY BUYER IMPRESSION: Improved alignment of the comminuted distal radius fracture fragments. Persistence of impaction and dorsal displacement of the distal fragment. Narrative 09/04/2025 7:31 AM GROCERY BUYER This is a signed report from [facility] PROCEDURE: Right Wrist Date: 09/04/2025 6:31 AM History: Right wrist pain. sequela of trauma with fracture. Technique: AP and lateral projections; postreduction FINDINGS: Improved alignment of the distal radius fracture fragments, with some persistence of impaction and dorsal displacement. Improved alignment of the DRUJ. On the AP projection, good alignment of the radiocarpal joint. Signed by Florencio Bloom MD 09/04/2025 7:31 AM Procedure Note Florencio Bloom MD - 09/04/2025 This is a signed report from [facility] PROCEDURE: Right Wrist Date: 09/04/2025 6:31 AM History: Right wrist pain. sequela of trauma with fracture. Technique: AP and lateral projections; postreduction FINDINGS: Improved alignment of the distal radius fracture fragments, with some persistence of impaction and dorsal displacement. Improved alignment of the DRUJ. On the AP projection, good alignment of the radiocarpal joint. Signed by Florencio Bloom MD 09/04/2025 7:31 AM IMPRESSION: Improved alignment of the comminuted distal radius fracture fragments. Persistence of impaction and dorsal displacement of the distal fragment. us Pacheco Cisneros MD DIAGNOSTIC IMAGING ORDERABLES F inal Result * CT CHEST ABDOMEN PELVIS W CONT (09/04/2025 3:52 AM GROCERY BUYER) Anatomical Region Laterality Modality Chest Computed Tomogra phy 09/04/2025 3:41 AM GROCERY BUYER Impressions 09/04/2025 4:26 AM GROCERY BUYER IMPRESSION: 1. Nonspecific subpleural densities in the lateral aspect of the right middle lobe. Subjacent right rib fractures cannot be excluded on this motion limited exam. 2. No obvious fracture in the thoracic spine. 3. No obvious fracture in the lumbar spine. 4. Small amount of free fluid in the cul-de-sac. This could be due to recent ovulation. 5. Simple cyst in the left kidney. No further workup is necessary. Narrative 09/04/2025 4:26 AM GROCERY BUYER This is a signed report from [facility] PROCEDURE: CT Chest, Abdomen and Pelvis With Contrast DATE: 09/04/2025 3:49 AM COMPARISON: None HISTORY: Polytrauma, blunt TECHNIQUE: Post contrast CT with sagittal and coronal 2-D reformats. Automated CT Dose Reduction technique. FINDINGS: Motion blur CT CHEST: No obvious pneumothorax or pleural effusion. No pericardial effusion. Nonspecific subpleural densities in the lateral aspect of the right middle lobe. Subjacent to the right rib fractures cannot be excluded on this motion limited exam. Heart size is normal. Normal enhancement of central vessels. No mediastinal hematoma. Tracheobronchial tree is patent. No subcutaneous emphysema. No obvious fracture in the visualized thoracic spine. Subtle fractures of the sternum cannot be excluded on this motion limited exam CT ABDOMEN: Liver, spleen, both adrenal glands, pancreas and the right kidney are normal. The left kidney demonstrates an interpolar simple cyst measuring approximately 1.7 cm in diameter. Gallbladder is well distended. Normal enhancement of IVC and aorta. No ascites, hernias, free air in the peritoneal cavity or bowel obstruction/ileus. No obvious fractures or lumbar spine. CT PELVIS: Intrauterine contraceptive device is seen. Small amount of fluid is seen in the cul-de-sac measuring 13 Hounsfield units in density. A small irregularity is seen in the left ovary probably due to recent ovulation. Right ovary appears normal in size. Mild stool burden is noted in the distal colon. Moderate stool burden is seen in the cecum. The appendix appears normal. The bladder is well distended. No hernias. No pelvic muscle hematomas. Bilateral SI joints, pubic symphysis and hip joints appear well aligned. Signed by Chace Camilo MD 09/04/2025 4:[address] scans are performed using dose optimization techniques as appropriate to a performed exam including automated exposure control and/or standardized protocols for targeted exams where dose is matched to indication/reason for exam/patient size. Procedure Note Chace Camilo - 09/04/2025 This is a signed report from [facility] PROCEDURE: CT Chest, Abdomen and Pelvis With Contrast DATE: 09/04/2025 3:49 AM COMPARISON: None HISTORY: Polytrauma, blunt TECHNIQUE: Post contrast CT with sagittal and coronal 2-D reformats. Automated CT Dose Reduction technique. FINDINGS: Motion blur CT CHEST: No obvious pneumothorax or pleural effusion. No pericardial effusion. Nonspecific subpleural densities in the lateral aspect of the right middle lobe. Subjacent to the right rib fractures cannot be excluded on this motion limited exam. Heart size is normal. Normal enhancement of central vessels. No mediastinal hematoma. Tracheobronchial tree is patent. No subcutaneous emphysema. No obvious fracture in the visualized thoracic spine. Subtle fractures of the sternum cannot be excluded on this motion limited exam CT ABDOMEN: Liver, spleen, both adrenal glands, pancreas and the right kidney are normal. The left kidney demonstrates an interpolar simple cyst measuring approximately 1.7 cm in diameter. Gallbladder is well distended. Normal enhancement of IVC and aorta. No ascites, hernias, free air in the peritoneal cavity or bowel obstruction/ileus. No obvious fractures or lumbar spine. CT PELVIS: Intrauterine contraceptive device is seen. Small amount of fluid is seen in the cul-de-sac measuring 13 Hounsfield units in density. A small irregularity is seen in the left ovary probably due to recent ovulation. Right ovary appears normal in size. Mild stool burden is noted in the distal colon. Moderate stool burden is seen in the cecum. The appendix appears normal. The bladder is well distended. No hernias. No pelvic muscle hematomas. Bilateral SI joints, pubic symphysis and hip joints appear well aligned. Signed by Chace Camilo MD 09/04/2025 4:[address] scans are performed using dose optimization techniques as appropriate to a performed exam including automated exposure control and/or standardized protocols for targeted exams where dose is matched to indication/reason for exam/patient size. IMPRESSION: 1. Nonspecific subpleural densities in the lateral aspect of the right middle lobe. Subjacent right rib fractures cannot be excluded on this motion limited exam. 2. No obvious fracture in the thoracic spine. 3. No obvious fracture in the lumbar spine. 4. Small amount of free fluid in the cul-de-sac. This could be due to recent ovulation. 5. Simple cyst in the left kidney. No further workup is necessary. us Pacheco Cisneros MD CT ORDERABLES Final Result * CT THORACIC LUMBAR WO CONTRAST (09/04/2025 3:50 AM GROCERY BUYER) Anatomical Region Laterality Modality Spine Computed Tomogra phy 09/04/2025 3:41 AM GROCERY BUYER Impressions 09/04/2025 4:31 AM GROCERY BUYER IMPRESSION: There are no findings to suggest an acute fracture or subluxation at the thoracic or lumbar spine. Narrative 09/04/2025 4:31 AM GROCERY BUYER This is a signed report from [facility] CT of the thoracic and lumbar spine: 09/04/2025 4:30 AM HISTORY: 20 years old Female with Back trauma, no prior imaging (Age >= 16y). COMPARISON: None available TECHNIQUE: Multiple axial contiguous images were obtained through the thoracic and lumbar spine without intravenous contrast administered. Coronal and sagittal reconstructed images were also obtained and examined. This exam was performed according to our departmental dose-optimization program, which includes automated exposure control, adjustment of the mA and/or KV according to the patient's size and/or use of iterative reconstruction technique. FINDINGS: The visualized vertebral bodies appear to be well aligned. No significant loss of vertebral body height is seen. No significant disc space narrowing is seen. There are no findings to suggest an acute fracture or subluxation. The visualized sacroiliac joints appear grossly unremarkable. The visualized kidneys demonstrate no evidence of hydronephrosis. No large pleural effusion is seen. Signed by Afua Pacheco DO 09/04/2025 4:[address] scans are performed using dose optimization techniques as appropriate to a performed exam including automated exposure control and/or standardized protocols for targeted exams where dose is matched to indication/reason for exam/patient size. Procedure Note Afua Pacheco DO - 09/04/2025 This is a signed report from [facility] CT of the thoracic and lumbar spine: 09/04/2025 4:30 AM HISTORY: 20 years old Female with Back trauma, no prior imaging (Age >= 16y). COMPARISON: None available TECHNIQUE: Multiple axial contiguous images were obtained through the thoracic and lumbar spine without intravenous contrast administered. Coronal and sagittal reconstructed images were also obtained and examined. This exam was performed according to our departmental dose-optimization program, which includes automated exposure control, adjustment of the mA and/or KV according to the patient's size and/or use of iterative reconstruction technique. FINDINGS: The visualized vertebral bodies appear to be well aligned. No significant loss of vertebral body height is seen. No significant disc space narrowing is seen. There are no findings to suggest an acute fracture or subluxation. The visualized sacroiliac joints appear grossly unremarkable. The visualized kidneys demonstrate no evidence of hydronephrosis. No large pleural effusion is seen. Signed by Afua Pacheco DO 09/04/2025 4:[address] scans are performed using dose optimization techniques as appropriate to a performed exam including automated exposure control and/or standardized protocols for targeted exams where dose is matched to indication/reason for exam/patient size. IMPRESSION: There are no findings to suggest an acute fracture or subluxation at the thoracic or lumbar spine. us Pacheco Cisneros MD CT ORDERABLES Final Result * CT CERVICAL SPINE WO CONTRAST (09/04/2025 3:49 AM GROCERY BUYER) Anatomical Region Laterality Modality Spine Computed Tomogra phy 09/04/2025 3:35 AM GROCERY BUYER Impressions 09/04/2025 4:29 AM GROCERY BUYER IMPRESSION: There are no findings to suggest an acute fracture or subluxation within the cervical spine. Narrative 09/04/2025 4:29 AM GROCERY BUYER This is a signed report from [facility] CERVICAL SPINE: 09/04/2025 4:29 AM TECHNIQUE: Axial contiguous images were obtained through the cervical spine without intravenous contrast. Sagittal and coronal reconstructions were also reviewed. This exam was performed according to our departmental dose-optimization program, which includes automated exposure control, adjustment of the mA and/or KV according to the patient's size and/or use of iterative reconstruction technique. COMPARISON: None available HISTORY: 20 years old Female with Neck trauma, dangerous injury mechanism (Age 16-64y). FINDINGS: The vertebral bodies appear well aligned. The vertebral body heights appear well maintained. No significant pre-vertebral soft tissue swelling is noted. No acute fracture or subluxation is noted. No significant intervertebral disc space narrowing is seen. The visualized brain parenchyma appears unremarkable. The craniocervical junction is unremarkable. Signed by Afua Pacheco DO 09/04/2025 4:[address] scans are performed using dose optimization techniques as appropriate to a performed exam including automated exposure control and/or standardized protocols for targeted exams where dose is matched to indication/reason for exam/patient size. Procedure Note Afua Pacheco DO - 09/04/2025 This is a signed report from [facility] CERVICAL SPINE: 09/04/2025 4:29 AM TECHNIQUE: Axial contiguous images were obtained through the cervical spine without intravenous contrast. Sagittal and coronal reconstructions were also reviewed. This exam was performed according to our departmental dose-optimization program, which includes automated exposure control, adjustment of the mA and/or KV according to the patient's size and/or use of iterative reconstruction technique. COMPARISON: None available HISTORY: 20 years old Female with Neck trauma, dangerous injury mechanism (Age 16-64y). FINDINGS: The vertebral bodies appear well aligned. The vertebral body heights appear well maintained. No significant pre-vertebral soft tissue swelling is noted. No acute fracture or subluxation is noted. No significant intervertebral disc space narrowing is seen. The visualized brain parenchyma appears unremarkable. The craniocervical junction is unremarkable. Signed by Afua Pacheco DO 09/04/2025 4:[address] scans are performed using dose optimization techniques as appropriate to a performed exam including automated exposure control and/or standardized protocols for targeted exams where dose is matched to indication/reason for exam/patient size. IMPRESSION: There are no findings to suggest an acute fracture or subluxation within the cervical spine. Pacheco Cisneros MD CT ORDERABLES Final Result * CT HEAD WO CONTRAST (09/04/2025 3:49 AM GROCERY BUYER) Anatomical Region Laterality Modality Head Computed Tomogra phy Impressions 09/04/2025 4:06 AM GROCERY BUYER IMPRESSION: No acute intracranial process. Narrative 09/04/2025 4:06 AM GROCERY BUYER This is a signed report from [facility] PROCEDURE: CT of the brain without intravenous contrast DATE: 09/04/2025 COMPARISON: None HISTORY: Closed head injury. Patient fell from second-story TECHNIQUE: Axial images were obtained through the brain without intravenous contrast. CT dose modulation was utilized. FINDINGS: The ventricles are midline and normal in size. There is no midline shift or mass effect. No intracranial hemorrhage or extra-axial fluid collection is identified. The calvarium is intact. The visualized paranasal sinuses are well aerated. Signed by Lisa Osborn MD 09/04/2025 4:[address] scans are performed using dose optimization techniques as appropriate to a performed exam including automated exposure control and/or standardized protocols for targeted exams where dose is matched to indication/reason for exam/patient size. Procedure Note Lisa Osborn - 09/04/2025 This is a signed report from [facility] PROCEDURE: CT of the brain without intravenous contrast DATE: 09/04/2025 COMPARISON: None HISTORY: Closed head injury. Patient fell from second-story TECHNIQUE: Axial images were obtained through the brain without intravenous contrast. CT dose modulation was utilized. FINDINGS: The ventricles are midline and normal in size. There is no midline shift or mass effect. No intracranial hemorrhage or extra-axial fluid collection is identified. The calvarium is intact. The visualized paranasal sinuses are well aerated. Signed by Lisa Osborn MD 09/04/2025 4:[address] scans are performed using dose optimization techniques as appropriate to a performed exam including automated exposure control and/or standardized protocols for targeted exams where dose is matched to indication/reason for exam/patient size. IMPRESSION: No acute intracranial process. Pacheco Cisneros MD CT ORDERABLES Final Result * TYPE AND SCREEN (09/04/2025 3:18 AM GROCERY BUYER) ABO GROUP O 09/04/2025 4:16 AM GROCERY BUYER [facility] RH (D) TYPE Positive 09/04/2025 4:16 AM GROCERY BUYER [facility] ANTIBODY SCREEN Negative 09/04/2025 4:16 AM GROCERY BUYER [facility] Blood Collection / Unknown 09/04/2025 3:18 AM GROCERY BUYER 09/04/2025 3:28 AM GROCERY BUYER Pacheco Cisneros MD BLOOD BANK ORDERABLES Edited Re sult - Final [facility] CLIA #[id number] [address] [place] [id number] * (ABNORMAL) ETHANOL LEVEL (09/04/2025 3:18 AM GROCERY BUYER) ETHANOL 19.78(H) <10.00 mg/dL 09/04/2025 3:48 AM GROCERY BUYER [facility] ETHANOL % 0.02 %w/v 09/04/2025 3:48 AM GROCERY BUYER [facility] Blood Collection / Unknown 09/04/2025 3:18 AM GROCERY BUYER 09/04/2025 3:28 AM GROCERY BUYER Narrative [facility] - 09/04/2025 3:48 AM GROCERY BUYER Lower limit of detection is 10.00 mg/dL. 50-100mg/dl: Impaired Reflexes; 100-300 mg/dl: Depression of [employer] SERVICE OPERATOR HELPER; 300 mg/dl or > : Coma may occur; 400 mg/dl or >: may occur This test is not intended for legal purposes or use in employment related testing. Pacheco Cisneros MD CHEMISTRY ORDERABLES Final Resu lt Performing Organization Address [facility] Co de Phone Number [facility] CLIA #[id number] [address] [place] [address] * PROTIME-INR (09/04/2025 2:05 AM GROCERY BUYER) PROTIME 11.4 9.5 - 12.1 Seconds 09/04/2025 3:23 AM GROCERY BUYER [facility] INR 1.0 0.9 - 1.1 09/04/2025 3:23 AM GROCERY BUYER [facility] Blood Collection / Unknown 09/04/2025 2:05 AM GROCERY BUYER 09/04/2025 2:16 AM GROCERY BUYER Pacheco Cisneros MD HEMATOLOGY ORDERABLES Final Res ult Performing Organization Address [facility] de Phone Number [facility] CLIA #[id number] [address] [place] [address] * (ABNORMAL) PTT (09/04/2025 2:05 AM GROCERY BUYER) PTT 22.0(L) 24.0 - 32.0 seconds 09/04/2025 3:23 AM GROCERY BUYER [facility] Blood Collection / Unknown 09/04/2025 2:05 AM GROCERY BUYER 09/04/2025 2:16 AM GROCERY BUYER Pacheco Cisneros MD HEMATOLOGY ORDERABLES Final Res ult Performing Organization Address [facility] Co de Phone Number [facility] CLIA #[id number] [address] [place] [address] * EXTRA TUBE (BLUE) (09/04/2025 2:05 AM GROCERY BUYER) Blood Collection / Unknown 09/04/2025 2:05 AM GROCERY BUYER 09/04/2025 2:16 AM GROCERY BUYER us External Provider Htsp HEMATOLOGY ORDERABLES Fin al Result [facility] CLIA #[id number] [address] [place] [address] * HCG QUALITATIVE, BLOOD (09/04/2025 2:05 AM GROCERY BUYER) HCG QUAL, BLOOD Negative Negative 09/04/2025 2:36 AM GROCERY BUYER [facility] Blood Collection / Unknown 09/04/2025 2:05 AM GROCERY BUYER 09/04/2025 2:15 AM GROCERY BUYER Pacheco Cisneros MD CHEMISTRY ORDERABLES Final Resu lt Performing Organization Address [place]/[facility] Co de Phone Number [facility] CLIA #[id number] [address] [place] [address] * (ABNORMAL) COMPREHENSIVE METABOLIC PANEL (09/04/2025 2:05 AM GROCERY BUYER) SODIUM 140 136 - 145 mmol/L 09/04/2025 2:40 AM [facility] POTASSIUM 3.0(LL) 3.5 - 5.1 mmol/L 09/04/2025 2:40 AM [facility] CHLORIDE 107 98 - 107 mmol/L 09/04/2025 2:40 AM [facility] CO2 14(LL) 22 - 29 mmol/L 09/04/2025 2:40 AM [facility] CALCIUM 9.1 8.4 - 10.2 mg/dL 09/04/2025 2:40 AM [facility] BUN 12 7 - 26 mg/dL 09/04/2025 2:40 AM [facility] CREATININE 0.72 0.50 - 1.10 mg/dL 09/04/2025 2:40 AM [facility] GLUCOSE 127(H) 74 - 99 mg/dL 09/04/2025 2:40 AM [facility] TOTAL PROTEIN 7.9 6.4 - 8.3 g/dL 09/04/2025 2:40 AM [facility] ALBUMIN 4.4 3.5 - 5.0 g/dL 09/04/2025 2:40 AM [facility] BILIRUBIN TOTAL 0.5 0.2 - 1.2 mg/dL 09/04/2025 2:40 AM [facility] ALKALINE PHOSPHATASE 64 40 - 150 U/L 09/04/2025 2:40 AM [facility] AST 254(H) 11 - 34 U/L 09/04/2025 2:40 AM [facility] ALT 183(H) <34 U/L 09/04/2025 2:40 AM [facility] GFR >60 >=60 mL/min/1.7 3 sq meter 09/04/2025 2:40 AM [facility] Comment:eGFR calculated with 2020 CKD-EPI equation. Vegetarian diet, extremely high or low muscle mass, and may affect results. Cystatin C with Glomerular Filtration Rate is a suitable alternative for these patients. ANION GAP 19(H) 8 - 16 mmol/L 09/04/2025 2:40 AM [facility] OSMOLALITY, CALCULATED 281 275 - 295 mOsmol/kg H2O 09/04/2025 2:40 AM [facility] Blood Collection / Unknown 09/04/2025 2:05 AM GROCERY BUYER 09/04/2025 2:15 AM [facility] - 09/04/2025 2:40 AM GROCERY BUYER AST2 reagent used for testing does not contain P5P supplementation and therefore may miss AST elevations in patients with B6 deficiency. This population may be as high as 10% in the [place], with risk factors including malabsorption, drug interactions, and alcoholic hepatitis. ALT2 reagent used for testing does not contain P5P supplementation and therefore may miss ALT elevations in patients with B6 deficiency. This population may be as high as 10% in the [place], with risk factors including malabsorption, drug interactions, and alcoholic hepatitis. Pacheco Cisneros MD CHEMISTRY ORDERABLES Final Resu lt [facility] CLIA #[id number] [address] [place] [address] * (ABNORMAL) CBC WITH DIFFERENTIAL (09/04/2025 2:05 AM GROCERY BUYER) WBC 10.8 4.5 - 11.0 K/uL 09/04/2025 2:39 AM [facility] RBC 4.11(L) 4.50 - 5.90 M/uL 09/04/2025 2:39 AM [facility] HEMOGLOBIN 13.0 12.0 - 16.0 g/dL 09/04/2025 2:39 AM [facility] HEMATOCRIT 35.9(L) 36.0 - 46.0 % 09/04/2025 2:39 AM [facility] MCV 87.3 77.0 - 100.0 fL 09/04/2025 2:39 AM [facility] MCH 31.6 26.0 - 34.0 pg 09/04/2025 2:39 AM [facility] MCHC 36.2 31.0 - 37.0 g/dL 09/04/2025 2:39 AM GROCERY BUYER [facility] RDW 11.0(L) 11.5 - 14.5 % 09/04/2025 2:39 AM [facility] RDW-STDEV 35.7(L) 37.0 - 54.0 fL 09/04/2025 2:39 AM [facility] PLATELETS 457(H) 150 - 400 K/uL 09/04/2025 2:39 AM [facility] MPV 9.3 7.4 - 10.4 fL 09/04/2025 2:39 AM [facility] NEUTROPHILS 38(L) 42 - 75 % 09/04/2025 2:39 AM [facility] LYMPHOCYTES 53(H) 21 - 51 % 09/04/2025 2:39 AM [facility] MONOCYTES 8 1 - 8 % 09/04/2025 2:39 AM [facility] EOSINOPHILS 0 0 - 5 % 09/04/2025 2:39 AM [facility] BASOPHILS 0 0 - 1 % 09/04/2025 2:39 AM [facility] IMMATURE GRANULOCYTES 0 <1 % 09/04/2025 2:39 AM [facility] NEUTROPHIL ABSOLUTE 4.07 2.00 - 6.90 K/uL 09/04/2025 2:39 AM [facility] LYMPHOCYTE ABSOLUTE 5.71(H) 1.00 - 4.20 K/uL 09/04/2025 2:39 AM [facility] MONOCYTE ABSOLUTE 0.89(H) 0.00 - 0.70 K/uL 09/04/2025 2:39 AM [facility] EOSINOPHIL ABSOLUTE 0.04 0.00 - 0.60 K/uL 09/04/2025 2:39 AM [facility] BASOPHILS ABSOLUTE 0.04 0.00 - 0.20 K/uL 09/04/2025 2:39 AM [facility] IMMATURE GRANULOCYTES ABSOLUTE <0.03 0.00 - 0.03 K/uL 09/04/2025 2:39 AM [facility] Blood Collection / Unknown 09/04/2025 2:05 AM GROCERY BUYER 09/04/2025 2:15 AM GROCERY BUYER Pacheco Cisneros MD HEMATOLOGY ORDERABLES Final Res ult [facility] #[id number] Leobardo SIMMS [facility] [place] [address] * XR WRIST 2 VW BILAT (09/04/2025 1:58 AM GROCERY BUYER) Anatomical Region Laterality Modality Wrist / Hand Computed Radiogr aphy Impressions 09/04/2025 7:23 AM GROCERY BUYER IMPRESSION: Colles' type fracture; intra-articular extension. Dorsal displacement. Narrative 09/04/2025 7:23 AM GROCERY BUYER This is a signed report from [facility] PROCEDURE: Left Wrist Date: 09/04/2025 1:58 AM History: Left wrist pain. Initial visit. Technique: AP, lateral and both oblique projections FINDINGS: Normal density of the skeletal structures. Comminuted distal radius fracture with dorsal displacement, impaction and overlap of the fragments. Disruption of the DRUJ is also suspected, intra-articular extension of the fracture at the radiocarpal joint. Deformity of the wrist related to displacement of the hand with the distal radius fragment, dorsal. Signed by Florencio Bloom MD 09/04/2025 7:23 AM Procedure Note Florencio Bloom MD - 09/04/2025 This is a signed report from [facility] PROCEDURE: Left Wrist Date: 09/04/2025 1:58 AM History: Left wrist pain. Initial visit. Technique: AP, lateral and both oblique projections FINDINGS: Normal density of the skeletal structures. Comminuted distal radius fracture with dorsal displacement, impaction and overlap of the fragments. Disruption of the DRUJ is also suspected, intra-articular extension of the fracture at the radiocarpal joint. Deformity of the wrist related to displacement of the hand with the distal radius fragment, dorsal. Signed by Florencio Bloom MD 09/04/2025 7:23 AM IMPRESSION: Colles' type fracture; intra-articular extension. Dorsal displacement. us Pacheco Cisneros MD DIAGNOSTIC IMAGING ORDERABLES F inal Result * Fracture and Fracture Dislocation (09/04/2025 1:35 AM GROCERY BUYER) Narrative Pacheco Cisneros MD - 09/04/2025 1:35 AM GROCERY BUYER Pacheco Cisneros MD 09/04/2025 10:02 AM Fracture and Fracture Dislocation Date/Time: 09/04/2025 1:35 AM Performed by: Pacheco Cisneros MD Authorized by: Pacheco Cisneros MD Consent: Consent obtained: Verbal and written Consent given by: Patient Risks, benefits, and alternatives were discussed: yes Risks discussed: Nerve damage, pain and vascular damage Alternatives discussed: No treatment, delayed treatment, alternative treatment, referral and observation [place] protocol: Procedure explained and questions answered to patient or proxy's satisfaction: yes Relevant documents present and verified: yes Imaging studies available: yes Required blood products, implants, devices, and special equipment available: yes Immediately prior to procedure, a time out was called: yes Patient identity confirmed: Hospital-assigned identification number, verbally with patient and arm band Injury: Injury location: Forearm Forearm injury location: R forearm Forearm fracture type: distal radial Pre-procedure details: Distal neurologic exam: Normal Distal perfusion: distal pulses strong and brisk capillary refill Range of motion: reduced Sedation: Sedation type: Moderate sedation Procedure details: Manipulation performed: yes Skeletal traction used: yes Pin inserted: no Reduction successful: yes X-ray confirmed reduction: yes Supplies used: Cotton padding, fiberglass and elastic bandage Additional details: Performed by me Post-procedure details: Distal neurologic exam: Unchanged Distal perfusion: distal pulses strong Range of motion: normal Procedure completion: Tolerated well, no immediate complications Pacheco Cisneros MD PROCEDURE/MINOR SURGICAL ORDERA BLES Final Result * Fracture and Fracture Dislocation (09/04/2025 1:35 AM [facility]) Narrative Pacheco Cisneros MD - 09/04/2025 1:35 AM GROCERY BUYER Pacheco Cisneros MD 09/04/2025 10:02 AM Fracture and Fracture Dislocation Date/Time: 09/04/2025 1:35 AM Performed by: Pacheco Cisneros MD Authorized by: Pacheco Cisneros MD Consent: Consent obtained: Verbal and written Consent given by: Patient Risks, benefits, and alternatives were discussed: yes Risks discussed: Nerve damage, pain and vascular damage Alternatives discussed: No treatment, delayed treatment, alternative treatment, referral and observation [place] protocol: Procedure explained and questions answered to patient or proxy's satisfaction: yes Relevant documents present and verified: yes Imaging studies available: yes Required blood products, implants, devices, and special equipment available: yes Immediately prior to procedure, a time out was called: yes Patient identity confirmed: Hospital-assigned identification number, verbally with patient and arm band Injury: Injury location: Forearm Forearm injury location: L forearm Forearm fracture type: distal radial Pre-procedure details: Distal neurologic exam: Normal Distal perfusion: distal pulses strong and brisk capillary refill Range of motion: reduced Sedation: Sedation type: Moderate sedation Procedure details: Manipulation performed: yes Skeletal traction used: yes Reduction successful: yes X-ray confirmed reduction: yes Supplies used: Cotton padding, elastic bandage and fiberglass Additional details: Performed by me Post-procedure details: Distal neurologic exam: Normal Distal perfusion: distal pulses strong and brisk capillary refill Range of motion: not applicable Procedure completion: Tolerated well, no immediate complications Pacheco Cisneros MD PROCEDURE/MINOR SURGICAL ORDERA BLES Final Result * Moderate Sedation (09/04/2025 1:35 AM [facility]ER) Narrative Pacheco Cisneros MD - 09/04/2025 1:35 AM [employer] BU[employer]ER Pacheco Cisneros MD 09/04/2025 10:02 AM Moderate Sedation Date/Time: 09/04/2025 1:35 AM Performed by: Pacheco Cisneros MD Authorized by: Pacheco Cisneros MD Consent: Consent obtained: Verbal and written Consent given by: Patient Risks, benefits, and alternatives were discussed: yes Risks discussed: Allergic reaction, dysrhythmia, inadequate sedation, nausea, vomiting, respiratory compromise necessitating ventilatory assistance and intubation, prolonged sedation necessitating reversal and prolonged hypoxia resulting in organ damage Alternatives discussed: Analgesia without sedation and anxiolysis [place] protocol: Procedure explained and questions answered to patient or proxy's satisfaction: yes Relevant documents present and verified: yes Immediately prior to procedure a time out was called: yes Patient identity confirmation method: Verbally with patient, arm band and hospital-assigned identification number Indications: Procedure performed: Fracture reduction Procedure necessitating sedation performed by: Physician performing sedation Intended level of sedation: Moderate (conscious sedation) Pre-sedation assessment: NPO status caution: urgency dictates proceeding with non-ideal NPO status ASA classification: class 1 - normal, healthy patient Neck mobility: normal Mouth openin or more finger widths Thyromental distance: 4 finger widths Mallampati score: I - soft palate, uvula, fauces, pillars visible Pre-sedation assessments completed and reviewed: airway patency, anesthesia/sedation history, cardiovascular function, hydration status, mental status, nausea/vomiting, pain level, respiratory function and temperature History of difficult intubation: no Has patient had previous problems with sedation or from the sedating agent (Propofol)?: No Has the patient been diagnosed with sleep apnea?: No Pre-sedation assessment completed: 09/04/2025 5:30 AM Immediate pre-procedure details: Reassessment: Patient reassessed immediately prior to procedure Reviewed: vital signs, relevant labs/tests and NPO status Verified: bag valve mask available, emergency equipment available, intubation equipment available, IV patency confirmed, oxygen available, reversal medications available and suction available Procedure details: Sedation start time: 09/04/2025 5:50 AM Sedation: Propofol Intra-procedure monitoring: Blood pressure monitoring, satellite project site monitor, continuous capnometry, continuous pulse oximetry, frequent LOC assessments and frequent vital sign checks Intra-procedure events: none Sedation end time: 09/04/2025 6:30 AM Total sedation time (minutes): 40 Post-procedure details: Post-sedation assessment completed: 09/04/2025 7:00 AM Attendance: Constant attendance by certified staff until patient recovered Recovery: Patient returned to pre-procedure baseline Post-sedation assessments completed and reviewed: airway patency, cardiovascular function, hydration status, mental status, nausea/vomiting, pain level, respiratory function and temperature Patient is stable for discharge or admission: yes Patient tolerance: Tolerated well, no immediate complications Pacheco Cisneros MD PROCEDURE/MINOR SURGICAL ORDERA BLES Final Result * Critical Care (09/04/2025 1:35 AM [employer]ER) Narrative Pacheco Cisneros MD - 09/04/2025 1:35 AM [employer] BU[employer]ER Pacheco Cisneros MD 09/04/2025 10:02 AM Critical Care Performed by: Pacheco Cisneros MD Authorized by: Pacheco Cisneros MD Critical care provider statement: Critical care time (minutes): 31 Critical care time was exclusive of: Separately billable procedures and treating other patients Critical care was necessary to treat or prevent imminent or life-threatening deterioration of the following conditions: Trauma Critical care was time spent personally by me on the following activities: Development of treatment plan with patient or surrogate, discussions with consultants, evaluation of patient's response to treatment, examination of patient, obtaining history from patient or surrogate, ordering and performing treatments and interventions, ordering and review of laboratory studies, ordering and review of radiographic studies, pulse oximetry and re-evaluation of patient's condition Pacheco Cisneros MD PROCEDURE/MINOR SURGICAL ORDERA BLES Final Result documented in this encounter Visit Diagnoses Diagnosis Fall- bilat wrist fxs- Primary Unspecified fall Closed fracture of distal ends of radius and ulna of both forearms, initial encounter Hypokalemia Hypopotassemia Transaminitis Nonspecific elevation of levels of transaminase or lactic acid dehydrogenase (LDH) Closed fracture of distal ends of radius and ulna of both forearms documented in this encounter Administered Medications Inactive Administered Medications - up to 3 most recent administrations Medication Order MAR Action Action Date Dose Rate Site HYDROcodone-acetaminophen (NORCO) 10-325 mg per tablet 1 Tablet 1 Tablet, Oral, EVERY 4 HOURS PRN, Starting on 09/04/25 at 0806, Until 09/04/25 at 1618, Pain (See admin instructions), Routine Given 09/04/2025 12:12 PM [facility] [facility] 1 Tablet Given 09/04/2025 8:14 AM [employer] [facility]ER 1 Tablet HYDROmorphone (DILAUDID) 0.5 mg/0.5 mL syringe 0.5 mg 0.5 mg, IV, ONE TIME ONLY, 1 dose, On 09/04/25 at 0245, Routine Given 09/04/2025 2:43 AM [employer] [facility]ER 0.5 mg HYDROmorphone (DILAUDID) 0.5 mg/0.5 mL syringe 0.5 mg 0.5 mg, IV, ONE TIME ONLY, 1 dose, On 09/04/25 at 0515, Routine Given 09/04/2025 5:13 AM [employer] BU[employer]ER 0.5 mg HYDROmorphone (DILAUDID) 0.5 mg/0.5 mL syringe 0.5 mg 0.5 mg, IV, ONE TIME ONLY, 1 dose, On 09/04/25 at 0645, Stat Given 09/04/2025 6:31 AM [employer] BU[employer]ER 0.5 mg HYDROMORPHONE (PF) 0.5 MG/0.5 ML INJECTION SYRINGE (CABINET OVERRIDE) 1 dose, Starting on 09/04/25 at 0626, Until 09/04/25 at 0631, Arnoldo Mendez: cabinet override iopamidoL (ISOVUE-300) 61% injection (drawn from multi-use bulk pack) 100 mL 100 mL, IV, INTRA-PROCEDURE ONCE, 1 dose, Starting on 09/04/25 at 0350, Until 09/04/25 at 0350, Routine Contrast Given 09/04/2025 3:50 AM [employer] BU[employer]ER 100 mL morphine 4 mg/mL injection 4 mg 4 mg, IV, ONE TIME ONLY, 1 dose, On 09/04/25 at 0200, Routine Given 09/04/2025 1:54 AM [employer] BU[employer]ER 4 mg naloxone (NARCAN) 0.4 mg/mL injection 0.1 mg 0.1 mg, IV, SEE ADMIN INSTRUCTIONS, Starting on 09/04/25 at 0807, Until 09/04/25 at 1618, Routine ondansetron (ZOFRAN ODT) tablet 4 mg 4 mg, Oral, EVERY 8 HOURS PRN, Starting on 09/04/25 at 1333, Until 09/04/25 at 1618, Nausea/Emesis, Routine ondansetron (ZOFRAN) 4 mg/2 mL injection 4 mg 4 mg, IV, ONE TIME ONLY, 1 dose, On 09/04/25 at 0200, Routine Given 09/04/2025 1:53 AM [employer] BU[employer]ER 4 mg ondansetron (ZOFRAN) 4 mg/2 mL injection 4 mg 4 mg, IV, ONE TIME ONLY, 1 dose, On 09/04/25 at 1230, Routine Given 09/04/2025 12:24 PM [employer]ER 4 mg potassium CHLORIDE (K-DUR,KLOR-CON M20) SR tablet 40 mEq 40 mEq, Oral, ONE TIME ONLY, 1 dose, On 09/04/25 at 0245, Stat Given 09/04/2025 2:50 AM [employer]OC[employer] BUYER 40 mEq propofoL (DIPRIVAN) injection 58 mg (1 mg/kg 58 kg), IV, ONE TIME ONLY, 1 dose, On 09/04/25 at 0530 Admin by Another Clinician (Comment) 09/04/2025 5:55 AM [employer] BU[employer]ER 200 mg propofoL (DIPRIVAN) injection 80 mg, IV, ONE TIME ONLY, 1 dose, On 09/04/25 at 0600 Admin by Another Clinician (Comment) 09/04/2025 6:05 AM [employer] BUYER 80 mg PROPOFOL 10 MG/ML INTRAVENOUS EMULSION (CABINET OVERRIDE) 1 dose, Starting on 09/04/25 at 0601, Until 09/04/25 at 0605 sodium chloride flush injection 3 mL 3 mL, IV, DAILY PRN, Starting on 09/04/25 at 0140, Until 09/04/25 at 1618, Other (See Comment), flush IV, Routine sodium chloride flush injection 3 mL 3 mL, IV, SEE ADMIN INSTRUCTIONS, Starting on 09/04/25 at 0140, Until 09/04/25 at 1618, Routine documented in this encounter Active and Recently Administered Medications Times are shown in [employer] [facility]. Scheduled Medication Order 09/02/2025 09/03/2025 09/04/2025 HYDROmorphone (DILAUDID) 0.5 mg/0.5 mL syringe 0.5 mg (COMPLETED) 0.5 mg, IV, ONE TIME ONLY, 1 dose, On 09/04/25 at 0245, Routine 0243 (Given - Provid er: Arnoldo Mendez RN) HYDROmorphone (DILAUDID) 0.5 mg/0.5 mL syringe 0.5 mg (COMPLETED) 0.5 mg, IV, ONE TIME ONLY, 1 dose, On 09/04/25 at 0515, Routine 0513 (Given - Provid er: Arnoldo Mendez RN) HYDROmorphone (DILAUDID) 0.5 mg/0.5 mL syringe 0.5 mg (COMPLETED) 0.5 mg, IV, ONE TIME ONLY, 1 dose, On 09/04/25 at 0645, Stat 0631 (Given - Provid er: Arnoldo Mendez RN) iopamidoL (ISOVUE-300) 61% injection (drawn from multi-use bulk pack) 100 mL (COMPLETED) 100 mL, IV, INTRA-PROCEDURE ONCE, 1 dose, Starting on 09/04/25 at 0350, Until 09/04/25 at 0350, Routine 0350 (Contrast Given - Provider: Cristobal Mtz, RT) morphine 4 mg/mL injection 4 mg (COMPLETED) 4 mg, IV, ONE TIME ONLY, 1 dose, On 09/04/25 at 0200, Routine 0154 (Given - Provid er: Arnoldo Mendez RN) naloxone (NARCAN) 0.4 mg/mL injection 0.1 mg 0.1 mg, IV, SEE ADMIN INSTRUCTIONS, Starting on 09/04/25 at 0807, Until 09/04/25 at 1618, Routine ondansetron (ZOFRAN) 4 mg/2 mL injection 4 mg (COMPLETED) 4 mg, IV, ONE TIME ONLY, 1 dose, On 09/04/25 at 0200, Routine 0153 (Given - Provid er: Arnoldo Mendez RN) ondansetron (ZOFRAN) 4 mg/2 mL injection 4 mg (COMPLETED) 4 mg, IV, ONE TIME ONLY, 1 dose, On 09/04/25 at 1230, Routine 1224 (Given - Provid er: Clarisa Canseco RN) potassium CHLORIDE (K-DUR,KLOR-CON M20) SR tablet 40 mEq (COMPLETED) 40 mEq, Oral, ONE TIME ONLY, 1 dose, On 09/04/25 at 0245, Stat 0250 (Given - Provid er: Arnoldo Mendez RN) propofoL (DIPRIVAN) injection (COMPLETED) 58 mg (1 mg/kg 58 kg), IV, ONE TIME ONLY, 1 dose, On 09/04/25 at 0530 0555 (Admin by [facility] Clinician (Comment) - Provider: Arnoldo Mendez RN - Comment: Dr. Cisneros) propofoL (DIPRIVAN) injection (COMPLETED) 80 mg, IV, ONE TIME ONLY, 1 dose, On 09/04/25 at 0600 0605 (Admin by [facility] Clinician (Comment) - Provider: Arnoldo Mendez RN - Comment: Dr. Cisneros) sodium chloride flush injection 3 mL 3 mL, IV, SEE ADMIN INSTRUCTIONS, Starting on 09/04/25 at 0140, Until 09/04/25 at 1618, Routine PRN Medication Order 09/02/2025 09/03/2025 09/04/2025 HYDROcodone-acetaminophen (NORCO) 10-325 mg per tablet 1 Tablet 1 Tablet, Oral, EVERY 4 HOURS PRN, Starting on 09/04/25 at 0806, Until 09/04/25 at 1618, Pain (See admin instructions), Routine 0814 (Given - Provid er: Clarisa Canseco, RN)1212 (Given - Provider: Clarisa Canseco RN) ondansetron (ZOFRAN ODT) tablet 4 mg 4 mg, Oral, EVERY 8 HOURS PRN, Starting on 09/04/25 at 1333, Until 09/04/25 at 1618, Nausea/Emesis, Routine sodium chloride flush injection 3 mL 3 mL, IV, DAILY PRN, Starting on 09/04/25 at 0140, Until 09/04/25 at 1618, Other (See Comment), flush IV, Routine documented in this encounter Care Teams Verify Rep Relationship Specialty Start Date End Date Dedra Jo MD [id number] [place] [id number] PCP - General Family Practice 09/04/25 documented as of this encounter
--- OUTSIDE RECORDS SUMMARY | 2025-09-04 01:37 | XMS_ITS | Encounter Summary ---
Author Organization [facility] Address [address] [place] [address] Care Team Providers Care Bone Drier Operator Name Role Phone Dedra Jo MD Primary Care Provider [phone] Reason for Visit * Reason Comments Fall From second floor aw kimberly * Auth/Cert (Routine) Specialty Diagnoses / Procedures Referred By Isacc t Referred To Contact Neurology Ponce Gillis ([facility])MD [address] [place] [phone] Phone: tel: fax: [facility]rology [facility] [address] [phone] Phone: tel: fax: Referral ID Status Reason Start Date Expiration Date Visits Re quested Visits Authorized [id number] 1 1 Encounter Details Date Type Department Care Team (Latest Contact Info) Description 09/04/2025 1:37 AM PRE K TEACHER - 09/04/2025 2:18 PM PRE K TEACHER Hospital Encounter [facility] [address] [phone] Pacheco Cisneros MD [address] [place] [phone] Ponce Gillis ([facility])MD [address] [facility] [address] [place] [address] Fall Discharge Disposition: Home or [...] worry about transportation for future doctor visits, hot die picker medication, etc.? No 2024 Housing Stability Answer [...] on file Legal Sex Female 7:03 AM PRE K TEACHER Gender Identity Not on file Sexual Orientation Not on file documented as of this encounter Last Filed Vital Signs Vital Sign Reading Time Taken Comments Blood Pressure 128/58 09/04/2025 7:00 AM PRE K TEACHER Pulse 103 09/04/2025 3:11 AM PRE K TEACHER Temperature 37 C (98.6 F) 09/04/2025 6:55 AM PRE K TEACHER Respiratory Rate 16 09/04/2025 7:00 AM PRE K TEACHER Oxygen Saturation 100% 09/04/2025 7:00 AM PRE K TEACHER Inhaled Oxygen Concentration - - Weight 58 kg (127 lb 13.9 oz) 09/04/2025 1:45 AM PRE K TEACHER Height 152.4 cm (5') 09/04/2025 1:45 AM PRE K TEACHER Body Mass Index 24.97 09/04/2025 1:45 AM PRE K TEACHER documented in this encounter Discharge Instructions * Discharge Instructions* Lakisha Kapadia RN - 09/04/2025 11:39 AM PRE K TEACHER Patient Care Instructions: Should you experience any [...] Gillis Chi, MD and Dedra Jo MD K TEACHER * Discharge Instr - Activity* Lakisha Kapadia RN - 09/04/2025 11:38 AM PRE K TEACHER See Discharge Instructions. K TEACHER * Discharge Instr - Diet* Lakisha Kapadia RN - 09/04/2025 11:38 AM PRE K TEACHER See Discharge Instructions. K TEACHER * Attachments The following attachments cannot be sent through Care Everywhere. * Arm Fracture (Singaporean) * Hydrocodone Combination Products (Singaporean) documented in this encounter Medications at Time [...] 20 Tablet 09/04/2025 naloxone (NARCAN) 4 mg/spray [place], Non-Aerosol EMERGENCY USE ONLY: Administer 1 spray [...] soon as possible. (Pt does not livein [place] and is returning to home state) K TEACHER documented in this encounter H&P Notes * Ponce Gillis Chi, MD - 09/04/2025 10:07 AM CST History & Physical PATIENT: Светлана Patel AGE: 20 y.o. CSN: [id number] Date of : 2005 Primary Care Doctor: Dedra Jo MD Referring Physician: ED Chief Complaint: 20 [...] - recommending surgical repair as outpatient in [place] where she lives No other acute injuries Stable for discharge Ponce Gillis MD K TEACHER documented in this encounter Consult Notes * [...] tube H69.90 Closed fracture of temporal bone ([facility]) S02.19XA Fall W19.XXXA Closed fracture of left side of base of skull ([facility]) S02.102A Abrasion of left shoulder S40.212A Scalp [...] enough for discharge, she return home to [place] and she can have surgery there near her family when it is safer after her swelling goes down. She voiced finding a hand surgeon in [place]. All questions answered. LDD K TEACHER documented in this encounter ED Notes * Arnoldo Mendez RN - 09/04/2025 6:20 AM CST Closed reduction of Bilateral closed fracture of distal radius ulna successfully done by Dr. Cisneros, splinting done by him as well- elevated affected extremity K TEACHER K TEACHER * Arnoldo Mendez RN - 09/04/2025 5:20 AM CST Consent for conscious sedation for manual reduction of bilateral wrist fracture signed and secured K TEACHER * Arnoldo Mendez RN - 09/04/2025 1:50 AM CST No need for CT scans as per Dr. Cisneros K TEACHER * Arnoldo Mendez RN - 09/04/2025 1:46 AM CST Received from triage with complaint of fall from [address] [place] [address] approximately 15-20 ft as claimed, doesn't know [...] call castañeda within reach. Attached to monitor K TEACHER * Arnoldo Mendez RN - 09/04/2025 1:[address] Cisneros at bedside and downgraded patient K TEACHER * Pacheco Cisneros MD - 09/04/2025 1:35 [...] Alternatives discussed: Analgesia without sedation and anxiolysis [place] protocol: Procedure explained and questions answered to [...] Sedation: Propofol Intra-procedure monitoring: Blood pressure monitoring, nurse monitoring, continuous capnometry, continuous pulse oximetry, frequent LOC [...] delayed treatment, alternative treatment, referral and observation [place] protocol: Procedure explained and questions answered to [...] delayed treatment, alternative treatment, referral and observation [place] protocol: Procedure explained and questions answered to [...] Date/Time Order Dose Route Action 09/04/2025 0154 PRE K TEACHER morphine 4 mg/mL injection 4 mg 4 mg IV Given 09/04/2025 0153 PRE K TEACHER ondansetron (ZOFRAN) 4 mg/2 mL injection 4 mg 4 mg IV Given 09/04/2025 0243 PRE K TEACHER HYDROmorphone (DILAUDID) 0.5 mg/0.5 mL syringe 0.5 mg 0.5 mg IV Given 09/04/2025 0250 PRE K TEACHER potassium CHLORIDE (K-DUR,KLOR-CON M20) SR tablet 40 mEq 40 mEq Oral Given 09/04/2025 0350 PRE K TEACHER iopamidoL (ISOVUE-300) 61% injection (drawn from multi-use bulk pack) 100 mL 100 mL IV Contrast Given 09/04/2025 0513 PRE K TEACHER HYDROmorphone (DILAUDID) 0.5 mg/0.5 mL syringe 0.5 mg 0.5 mg IV Given 09/04/2025 0555 PRE K TEACHER propofoL (DIPRIVAN) injection 200 mg IV Admin by Another Clinician (Comment) 09/04/2025 0605 PRE K TEACHER propofoL (DIPRIVAN) injection 80 mg IV Admin by Another Clinician (Comment) 09/04/2025 0631 PRE K TEACHER HYDROmorphone (DILAUDID) 0.5 mg/0.5 mL syringe 0.5 [...] Cisneros MD 09/04/2025 5:16 AM Hypokalemia [E87.6] Pcaheco Cisneros MD 09/04/2025 5:16 AM Transaminitis [R74.01] [...] [R74.01] Pacheco Cisneros MD 09/04/2025 5:16 AM K TEACHER documented in this encounter Miscellaneous Notes * [...] promote wound healing by discharge Outcome: Resolved K TEACHER documented in this encounter Plan of Treatment Not on file documented as of this encounter Procedures Procedure Name Priority Date/Time Associated Diagnosis Comments XR WRIST 2 VW BILAT Stat 09/04/2025 6 :[address] CHEST ABDOMEN PELVIS W CONT Stat 09/04/2025 3:[address] THORACIC LUMBAR WO CONTRAST Stat 09/04/2025 3:[address] CERVICAL SPINE WO CONTRAST Stat 09/04/2025 3:49 [address] HEAD WO CONTRAST Stat 09/04/2025 3 :49 AM PRE K TEACHER TYPE AND SCREEN Stat 09/04/2025 3:18 AM PRE K TEACHER ETHANOL LEVEL Stat 09/04/2025 3:18 AM PRE K TEACHER EXTRA TUBE (BLUE) Stat 09/04/2025 2:0 5 AM PRE K TEACHER EXTRA TUBE Stat 09/04/2025 2:05 AM PRE K TEACHER HCG QUALITATIVE, SERUM Stat 2:05 AM PRE K TEACHER CBC WITH DIFFERENTIAL Stat 09/04/2025 2:05 AM PRE K TEACHER PTT Stat 09/04/2025 2:05 AM PRE K TEACHER PROTIME-INR Stat 09/04/2025 2:05 AM PRE K TEACHER COMPREHENSIVE METABOLIC PANEL Stat 09/04/2025 2:05 AM PRE K TEACHER XR WRIST 2 VW BILAT Stat 09/04/2025 1 :58 AM PRE K TEACHER MODERATE SEDATION Routine 09/04/2025 1:3 5 AM PRE K TEACHER BASIC FRACTURE AND FRACTURE DISLOCATION TREATMENT Routine 09/04/2025 1:35 AM PRE K TEACHER BASIC FRACTURE AND FRACTURE DISLOCATION TREATMENT Routine 09/04/2025 1:35 AM PRE K TEACHER CRITICAL CARE Routine 09/04/2025 1:35 AM PRE K TEACHER documented in this encounter Results * XR WRIST 2 VW BILAT (09/04/2025 6:34 AM PRE K TEACHER) Anatomical Region Laterality Modality Wrist / Hand Computed Radiogr aphy Impressions 09/04/2025 7:31 AM PRE K TEACHER IMPRESSION: Improved alignment of the comminuted distal radius fracture fragments. Persistence of impaction and dorsal displacement of the distal fragment. Narrative 09/04/2025 7:31 AM PRE K TEACHER This is a signed report from Radiology [...] ABDOMEN PELVIS W CONT (09/04/2025 3:52 AM PRE K TEACHER) Anatomical Region Laterality Modality Chest Computed Tomogra phy 09/04/2025 3:41 AM PRE K TEACHER Impressions 09/04/2025 4:26 AM PRE K TEACHER IMPRESSION: 1. Nonspecific subpleural densities in the [...] workup is necessary. Narrative 09/04/2025 4:26 AM PRE K TEACHER This is a signed report from [facility] PROCEDURE: CT Chest, Abdomen and Pelvis With [...] THORACIC LUMBAR WO CONTRAST (09/04/2025 3:50 AM PRE K TEACHER) Anatomical Region Laterality Modality Spine Computed Tomogra phy 09/04/2025 3:41 AM PRE K TEACHER Impressions 09/04/2025 4:31 AM PRE K TEACHER IMPRESSION: There are no findings to suggest an acute fracture or subluxation at the thoracic or lumbar spine. Narrative 09/04/2025 4:31 AM PRE K TEACHER This is a signed report from Radiology [...] CERVICAL SPINE WO CONTRAST (09/04/2025 3:49 AM PRE K TEACHER) Anatomical Region Laterality Modality Spine Computed Tomogra phy 09/04/2025 3:35 AM PRE K TEACHER Impressions 09/04/2025 4:29 AM PRE K TEACHER IMPRESSION: There are no findings to suggest an acute fracture or subluxation within the cervical spine. Narrative 09/04/2025 4:29 AM PRE K TEACHER This is a signed report from Radiology [...] CT HEAD WO CONTRAST (09/04/2025 3:49 AM PRE K TEACHER) Anatomical Region Laterality Modality Head Computed Tomogra phy Impressions 09/04/2025 4:06 AM PRE K TEACHER IMPRESSION: No acute intracranial process. Narrative 09/04/2025 4:06 AM PRE K TEACHER This is a signed report from Radiology [...] * TYPE AND SCREEN (09/04/2025 3:18 AM PRE K TEACHER) ABO GROUP O 09/04/2025 4:16 AM PRE K TEACHER [facility] RH (D) TYPE Positive 09/04/2025 4:16 AM PRE K TEACHER [facility] ANTIBODY SCREEN Negative 09/04/2025 4:16 AM PRE K TEACHER [facility] Blood Collection / Unknown 09/04/2025 3:18 AM PRE K TEACHER 09/04/2025 3:28 AM PRE K TEACHER Pacheco Cisneros MD BLOOD BANK ORDERABLES Edited Re sult - Final [facility] CLIA #[id number] [address] [place] [address] * (ABNORMAL) ETHANOL LEVEL (09/04/2025 3:18 AM PRE K TEACHER) ETHANOL 19.78(H) <10.00 mg/dL 09/04/2025 3:48 AM PRE K TEACHER [facility] ETHANOL % 0.02 %w/v 09/04/2025 3:48 AM PRE K TEACHER [facility] Blood Collection / Unknown 09/04/2025 3:18 AM PRE K TEACHER 09/04/2025 3:28 AM PRE K TEACHER Narrative [facility] - 09/04/2025 3:48 AM PRE K TEACHER Lower limit of detection is 10.00 mg/dL. 50-100mg/dl: Impaired Reflexes; 100-300 mg/dl: Depression of MAMMOGRAPHER; 300 mg/dl or > : Coma may occur; 400 mg/dl or >: may occur This test is not intended for legal purposes or use in employment related testing. Pacheco Cisneros MD CHEMISTRY ORDERABLES Final Resu lt Performing Organization Address [facility] Co de Phone Number [facility] CLIA #[id number] [address] [place] [place] [address] * PROTIME-INR (09/04/2025 2:05 AM PRE K TEACHER) PROTIME 11.4 9.5 - 12.1 Seconds 09/04/2025 3:23 AM PRE K TEACHER [facility] INR 1.0 0.9 - 1.1 09/04/2025 3:23 AM PRE K TEACHER [facility] Blood Collection / Unknown 09/04/2025 2:05 AM PRE K TEACHER 09/04/2025 2:16 AM PRE K TEACHER Pacheco Cisneros MD HEMATOLOGY ORDERABLES Final Res ult Performing Organization Address [facility] de Phone Number [facility] CLIA #[id number] [address] [place] [address] * (ABNORMAL) PTT (09/04/2025 2:05 AM PRE K TEACHER) PTT 22.0(L) 24.0 - 32.0 seconds 09/04/2025 3:23 AM PRE K TEACHER [facility] Blood Collection / Unknown 09/04/2025 2:05 AM PRE K TEACHER 09/04/2025 2:16 AM PRE K TEACHER Pacheco Cisneros MD HEMATOLOGY ORDERABLES Final Res ult Performing Organization Address [facility] Co de Phone Number [facility] CLIA #[id number] [address] [place] [address] * EXTRA TUBE (BLUE) (09/04/2025 2:05 AM PRE K TEACHER) Blood Collection / Unknown 09/04/2025 2:05 AM PRE K TEACHER 09/04/2025 2:16 AM PRE K TEACHER us External Provider Htsp HEMATOLOGY ORDERABLES Fin al Result [facility] CLIA #[id number] [address] [place] [address] * HCG QUALITATIVE, BLOOD (09/04/2025 2:05 AM PRE K TEACHER) HCG QUAL, BLOOD Negative Negative 09/04/2025 2:36 AM PRE K TEACHER [facility] Blood Collection / Unknown 09/04/2025 2:05 AM PRE K TEACHER 09/04/2025 2:15 AM PRE K TEACHER Pacheco Cisneros MD CHEMISTRY ORDERABLES Final Resu lt Performing Organization Address [facility] Co de Phone Number [facility] CLIA #[id number] [address] [place] [address] * (ABNORMAL) COMPREHENSIVE METABOLIC PANEL (09/04/2025 2:05 AM PRE K TEACHER) SODIUM 140 136 - 145 mmol/L 09/04/2025 2:40 AM [facility] POTASSIUM 3.0(LL) 3.5 - 5.1 mmol/L 09/04/2025 2:40 AM [facility] CHLORIDE 107 98 - 107 mmol/L 09/04/2025 2:40 AM [facility] CO2 14(LL) 22 - 29 mmol/L 09/04/2025 2:40 AM [facility] CALCIUM 9.1 8.4 - 10.2 mg/dL 09/04/2025 2:40 AM [facility] BUN 12 7 - 26 mg/dL 09/04/2025 2:40 AM [facility] CREATININE 0.72 0.50 - 1.10 mg/dL 09/04/2025 2:40 AM [facility] GLUCOSE 127(H) 74 - 99 mg/dL 09/04/2025 2:40 AM [facility] TOTAL PROTEIN 7.9 6.4 - 8.3 g/dL 09/04/2025 2:40 AM [facility] ALBUMIN 4.4 3.5 - 5.0 g/dL 09/04/2025 2:40 AM [facility] BILIRUBIN TOTAL 0.5 0.2 - 1.2 mg/dL 09/04/2025 2:40 AM [facility] ALKALINE PHOSPHATASE 64 40 - 150 U/L 09/04/2025 2:40 AM [facility] AST 254(H) 11 - 34 U/L 09/04/2025 2:40 AM [facility] ALT 183(H) <34 U/L 09/04/2025 2:40 AM [facility] GFR >60 >=60 mL/min/1.7 3 sq meter 09/04/2025 2:40 AM [facility] Comment:eGFR calculated with 2020 CKD-EPI equation. Vegetarian diet, extremely high or low muscle mass, and may affect results. Cystatin C with Glomerular Filtration Rate is a suitable alternative for these patients. ANION GAP 19(H) 8 - 16 mmol/L 09/04/2025 2:40 AM [facility] OSMOLALITY, CALCULATED 281 275 - 295 mOsmol/kg H2O 09/04/2025 2:40 AM [facility] Blood Collection / Unknown 09/04/2025 2:05 AM PRE K TEACHER 09/04/2025 2:15 AM [facility] - 09/04/2025 2:40 AM PRE K TEACHER AST2 reagent used for testing does not [...] Cisneros MD CHEMISTRY ORDERABLES Final Resu lt [facility] CLIA #[id number] [address] [place] [address] * (ABNORMAL) CBC WITH DIFFERENTIAL (09/04/2025 2:05 AM PRE K TEACHER) WBC 10.8 4.5 - 11.0 K/uL 09/04/2025 2:39 AM [facility] RBC 4.11(L) 4.50 - 5.90 M/uL 09/04/2025 2:39 AM [facility] HEMOGLOBIN 13.0 12.0 - 16.0 g/dL 09/04/2025 2:39 AM [facility] HEMATOCRIT 35.9(L) 36.0 - 46.0 % 09/04/2025 2:39 AM [facility] MCV 87.3 77.0 - 100.0 fL 09/04/2025 2:39 AM [facility] MCH 31.6 26.0 - 34.0 pg 09/04/2025 2:39 AM [facility] MCHC 36.2 31.0 - 37.0 g/dL 09/04/2025 2:39 AM PRE K TEACHER [facility] RDW 11.0(L) 11.5 - 14.5 % 09/04/2025 2:39 AM [facility] RDW-STDEV 35.7(L) 37.0 - 54.0 fL 09/04/2025 2:39 AM [facility] PLATELETS 457(H) 150 - 400 K/uL 09/04/2025 2:39 AM [facility] MPV 9.3 7.4 - 10.4 fL 09/04/2025 2:39 AM [facility] NEUTROPHILS 38(L) 42 - 75 % 09/04/2025 2:39 AM [facility] LYMPHOCYTES 53(H) 21 - 51 % 09/04/2025 2:39 AM [facility] MONOCYTES 8 1 - 8 % 09/04/2025 2:39 AM [facility] EOSINOPHILS 0 0 - 5 % 09/04/2025 2:39 AM [facility] BASOPHILS 0 0 - 1 % 09/04/2025 2:39 AM [facility] IMMATURE GRANULOCYTES 0 <1 % 09/04/2025 2:39 AM [facility] NEUTROPHIL ABSOLUTE 4.07 2.00 - 6.90 K/uL 09/04/2025 2:39 AM [facility] LYMPHOCYTE ABSOLUTE 5.71(H) 1.00 - 4.20 K/uL 09/04/2025 2:39 AM [facility] MONOCYTE ABSOLUTE 0.89(H) 0.00 - 0.70 K/uL 09/04/2025 2:39 AM [facility] EOSINOPHIL ABSOLUTE 0.04 0.00 - 0.60 K/uL 09/04/2025 2:39 AM [facility] BASOPHILS ABSOLUTE 0.04 0.00 - 0.20 K/uL 09/04/2025 2:39 AM [facility] IMMATURE GRANULOCYTES ABSOLUTE <0.03 0.00 - 0.03 K/uL 09/04/2025 2:39 AM [facility] Blood Collection / Unknown 09/04/2025 2:05 AM PRE K TEACHER 09/04/2025 2:15 AM PRE K TEACHER Pacheco Cisneros MD HEMATOLOGY ORDERABLES Final Res ult [facility] #[id number] Leobardo SIMMS [facility] [address] * XR WRIST 2 VW BILAT (09/04/2025 1:58 AM PRE K TEACHER) Anatomical Region Laterality Modality Wrist / Hand Computed Radiogr aphy Impressions 09/04/2025 7:23 AM PRE K TEACHER IMPRESSION: Colles' type fracture; intra-articular extension. Dorsal displacement. Narrative 09/04/2025 7:23 AM PRE K TEACHER This is a signed report from Radiology [...] Fracture and Fracture Dislocation (09/04/2025 1:35 AM PRE K TEACHER) Narrative Pacheco Cisneros MD - 09/04/2025 1:35 AM PRE K TEACHER Pacheco Cisneros MD 09/04/2025 10:02 AM Fracture and Fracture Dislocation Date/Time: 09/04/2025 1:35 AM Performed by: Pacheco Cisneros MD Authorized by: Pacheco Cisneros MD Consent: Consent obtained: Verbal and written Consent given by: Patient Risks, benefits, and alternatives were discussed: yes Risks discussed: Nerve damage, pain and vascular damage Alternatives discussed: No treatment, delayed treatment, alternative treatment, referral and observation [place] protocol: Procedure explained and questions answered to [...] Fracture and Fracture Dislocation (09/04/2025 1:35 AM [facility] [[email or web address] Narrative Pacheco Cisneros MD - 09/04/2025 1:35 AM PRE K TEACHER Pacheco Cisneros MD 09/04/2025 10:02 AM Fracture and Fracture Dislocation Date/Time: 09/04/2025 1:35 AM Performed by: Pacheco Cisneros MD Authorized by: Pacheco Cisneros MD Consent: Consent obtained: Verbal and written Consent given by: Patient Risks, benefits, and alternatives were discussed: yes Risks discussed: Nerve damage, pain and vascular damage Alternatives discussed: No treatment, delayed treatment, alternative treatment, referral and observation [place] protocol: Procedure explained and questions answered to [...] Result * Moderate Sedation (09/04/2025 1:35 AM PRE K TEACHER) Narrative Pacheco Cisneros MD - 09/04/2025 1:35 AM PRE K TEACHER Pacheco Cisneros MD 09/04/2025 10:02 AM Moderate [...] Alternatives discussed: Analgesia without sedation and anxiolysis [place] protocol: Procedure explained and questions answered to [...] Sedation: Propofol Intra-procedure monitoring: Blood pressure monitoring, nurse monitoring, continuous capnometry, continuous pulse oximetry, frequent LOC [...] Result * Critical Care (09/04/2025 1:35 AM PRE K TEACHER) Narrative Pacheco Cisneros MD - 09/04/2025 1:35 AM PRE K TEACHER Pacheco Cisneros MD 09/04/2025 10:02 AM Critical [...] admin instructions), Routine Given 09/04/2025 12:12 PM PRE K TEACHER 1 Tablet Given 09/04/2025 8:14 AM PRE K TEACHER 1 Tablet HYDROmorphone (DILAUDID) 0.5 mg/0.5 mL syringe 0.5 mg 0.5 mg, IV, ONE TIME ONLY, 1 dose, On 09/04/25 at 0245, Routine Given 09/04/2025 2:43 AM PRE K TEACHER 0.5 mg HYDROmorphone (DILAUDID) 0.5 mg/0.5 mL syringe 0.5 mg 0.5 mg, IV, ONE TIME ONLY, 1 dose, On 09/04/25 at 0515, Routine Given 09/04/2025 5:13 AM PRE K TEACHER 0.5 mg HYDROmorphone (DILAUDID) 0.5 mg/0.5 mL syringe 0.5 mg 0.5 mg, IV, ONE TIME ONLY, 1 dose, On 09/04/25 at 0645, Stat Given 09/04/2025 6:31 AM PRE K TEACHER 0.5 mg HYDROMORPHONE (PF) 0.5 MG/0.5 ML INJECTION SYRINGE (CABINET OVERRIDE) 1 dose, Starting on 09/04/25 at 0626, Until 09/04/25 at 0631, Arnoldo Mendez: cabinet override iopamidoL (ISOVUE-300) 61% injection (drawn from multi-use bulk pack) 100 mL 100 mL, IV, INTRA-PROCEDURE ONCE, 1 dose, Starting on 09/04/25 at 0350, Until 09/04/25 at 0350, Routine Contrast Given 09/04/2025 3:50 AM PRE K TEACHER 100 mL morphine 4 mg/mL injection 4 mg 4 mg, IV, ONE TIME ONLY, 1 dose, On 09/04/25 at 0200, Routine Given 09/04/2025 1:54 AM PRE K TEACHER 4 mg naloxone (NARCAN) 0.4 mg/mL injection [...] at 0200, Routine Given 09/04/2025 1:53 AM PRE K TEACHER 4 mg ondansetron (ZOFRAN) 4 mg/2 mL injection 4 mg 4 mg, IV, ONE TIME ONLY, 1 dose, On 09/04/25 at 1230, Routine Given 09/04/2025 12:24 PM PRE K TEACHER 4 mg potassium CHLORIDE (K-DUR,KLOR-CON M20) SR tablet 40 mEq 40 mEq, Oral, ONE TIME ONLY, 1 dose, On 09/04/25 at 0245, Stat Given 09/04/2025 2:50 AM PRE K TEACHER 40 mEq propofoL (DIPRIVAN) injection 58 mg (1 mg/kg 58 kg), IV, ONE TIME ONLY, 1 dose, On 09/04/25 at 0530 Admin by Another Clinician (Comment) 09/04/2025 5:55 AM PRE K TEACHER 200 mg propofoL (DIPRIVAN) injection 80 mg, IV, ONE TIME ONLY, 1 dose, On 09/04/25 at 0600 Admin by Another Clinician (Comment) 09/04/2025 6:05 AM PRE K TEACHER 80 mg PROPOFOL 10 MG/ML INTRAVENOUS EMULSION [...] Recently Administered Medications Times are shown in PRE K TEACHER. Scheduled Medication Order 09/02/2025 09/03/2025 09/04/2025 HYDROmorphone [...] On 09/04/25 at 0530 0555 (Admin by [facility] Clinician (Comment) - Provider: Arnoldo Mendez RN - Comment: Dr. Cisneros) propofoL (DIPRIVAN) injection (COMPLETED) 80 mg, IV, ONE TIME ONLY, 1 dose, On 09/04/25 at 0600 0605 (Admin by [facility] Clinician (Comment) - Provider: Arnoldo [...] Routine documented in this encounter Care Teams Bone Drier Operator Relationship Specialty Start Date End Date Dedra Jo MD [facility] [place] [address] PCP - General Family Practice 09/04/25 documented as of this encounter
--- OUTSIDE RECORDS SUMMARY | 2025-09-04 19:35 | XMS_ITS | Clinical Summary ---
Author Organization [facility] [facility] Address [address] Attn: [place] [address] Care Team Providers Care Print Journalist Name Role Phone Unavailable Primary Care Provider Unavailabl e Allergies No known active allergies Medications medroxyPROGEST ERone (DEPO-PROVERA) 150 mg/mL Suspension Inject 1 mL (150 mg) by intramuscular injection every 90 days. 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, uni, left ear, w unrestr hear cntra side 02/10/2020 03/16/2020 Hemotympanum, left 02/02/2020 0 Closed fracture of temporal bone 02/02/2020 03/19/2023 Closed fracture of left side of base of skull 02/02/20 20 03/19/2023 Hypertrophy of adenoids alone 09/03/2010 03/16/2020 Immunizations Immunization Administration Dates Next Due (KINRIX/QUADRACEL)(4 - 6 YRS ) DIPHTHERIA, TETANUS TOXOIDS AND ACELLULAR PERTUSSIS VACCINE, POLIO, INACTIVATED (DTAP-IPV) (PF) IM 01/17/2010 (M-M-R II/PRIORIX)(12 MO UP) MEASLES, MUMPS AND RUBELLA VIRUS VACCINE, 0.5 ML IM/SUBCUT 01/17/2010 (MENQUADFI)(2 YRS UP) MENING OCOCCAL POLYSACCHARIDE VACCINE A,C,Y,W-135, TT CONJUGATE (PF) 10 MCG/0.5 ML IM SOLUTION 06/03/2022 (PEDIARIX)(6 WKS-6 YRS) DIPT HERIA, TETANUS TOXOIDS, ACELLULAR PERTUSSIS, HEPATITIS B, AND INACTIVATED POLIOVIRUS VACCINE (WXSO-ZPEO-RXA), 0.5ML, IM 2005,2005,2005 (PFIZER)(12 YR UP) COVID-19 VACCINE - EMERGENCY USE AUTHORIZATION, MRNA, [id number](PF) 30 MCG/0.3 ML IM SUSP 04/30/2021,04/09/2021 (PROQUAD)(12 MOS-12 YRS)MIKE LES, MUMPS, RUBELLA, AND VARICELLA VIRUS VACCINE. 0.5 ML, SUBCUT 03/12/2023,01/17/2010 (VARIVAX)(12 MOS UP)VARICELL A VIRUS VACCINE (PF) 0.5 ML, SUB CUT 01/17/2010 HIB, Unspecified Formulation 2005,07/10/20 05,2005 HPV 9 Vaccine 3-dose PF IM SCHIP 02/05/2019,08/16 Influenza Seasonal Unspecifi ed Formulation IM 08/02/2022,07/24/2020,07/30/2019,07/23,08/01/2016,08/24/2015,08/04/2014 Pneumococcal 7-valent conjug ate vaccine IM 2005 Pneumococcal vaccine, unspec ified formulation 2005,2005 Family History Medical History Relation Name Comments Healthy Father Healthy Mother Relation Name Status Comments Father Alive Mother Alive Social History Tobacco Use Types Packs/Day Years Used Date Smoking Tobacco: Never Smokeless Tobacco: Never Tobacco Cessation:Counseling Given: No Alcohol Use Standard Drinks/Week Comments Never 0 (1 standard drink = 0.6 oz pur e alcohol) Adolescent Education Answer Date Record ed Getting School Help Needed Not on file 03/31 Feeling Safe Answer Date Recorded Are you in a relationship wi th someone who hurts you emotionally and/or physically? No 03/12/2023 Comments No Sex and Gender Information Value Date Recorded Sex Assigned at Not on file Legal Sex Female 12:35 AM CDL INSTRUCTOR Gender Identity Not on file Sexual Orientation Not on file Last Filed Vital Signs Vital Sign Reading Time Taken Comments Blood Pressure 120/78 03/01/2024 9:03 AM CDT Pulse 102 03/01/2024 9:03 AM CDT Temperature 36.8 C (98.2 F) 03/01/2024 9:03 AM CDT Respiratory Rate 18 03/01/2024 9:03 AM CDT Oxygen Saturation 99% 03/01/2024 9:03 AM CDT Inhaled Oxygen Concentration - - Weight 50.4 kg (111 lb 3.2 oz) 03/01/2024 9:03 A M CDT Height 154.9 cm (5' 1 ) 03/01/2024 9:03 AM CDT Body Mass Index 21.01 03/01/2024 9:03 AM CDT Plan of Treatment Health Maintenance Due Date Last Done Comments CHLAMYDIA SCREENING (ANNUAL) 11-24 YEARS 2016 DTAP/TDAP/TD VACCINES (5 - Tdap) 2016 01/17/2010, 2005, 2005, Additional history exists INFLUENZA VACCINE (#1) 2025 , 07/24/2020, 07/30/2019, Additional history exists COVID-19 Vaccine (3 - 2024-2 6 season) 2025 04/30/2021, 04/09/2021 HEPATITIS B VACCINES Completed 2005, 2005, 2005 HPV VACCINES Completed 02/05/2019, 09/09/2018 Insurance PLUS [id number] * Guarantor: VIOLET VALENTE Account Type Relation to Patient Date of Phone Billing Address Personal/Family [phone] [address] [facility] [employer]
--- OUTSIDE RECORDS SUMMARY | 2025-09-04 19:35 | XMS_ITS | Clinical Summary ---
Author Organization [facility] Address [address] [place] [address] Care Team Providers Care Disease And Insect Control Boss Name Role Phone Dedra Jo MD Primary Care Provider [phone] Allergies No known active allergies Medications MELATONIN ORAL Take by mouth. Active hydrOXYzine pamoate (VISTARIL) 25 mg capsule Take 25 mg by mouth every 6 hours. 14 days 5 Active HYDROcodone-florencio taminophen (NORCO) 10-325 mg TabletIndicatio ns:Closed fracture of distal ends of radius and ulna of both forearms, initial encounter Take 1 Tablet by mouth every 4 hours as needed for Pain. Max Daily Amount: 6 Tablets 20 Tablet 5 Active naloxone (NARCAN) 4 mg/spray Nelson, Non-Aerosol EMERGENCY USE ONLY: Administer 1 spray (4 mg) in one nostril one time. May repeat in alternating nostrils every 2-3 min until responsive or EMS arrives. 2 Each 3 5 Active ondansetron (ZOFRAN ODT) 4 mg Tablet, Rapid Dissolve Take 1 Tablet (4 mg) by mouth every 8 hours as needed for Nausea/Emesis. Dissolve tablet on top of tongue, then swallow with saliva. 30 Tablet 5 Active Active Problems Problem Noted Date Diagnosed Date Closed fracture of distal en ds of radius and ulna of both forearms 09/04/2025 Closed fracture of temporal bone 02/02/2020 Fall- bilat wrist fxs 02/02/2020 Closed fracture of left side of base of skull Abrasion of left shoulder 02/02/2020 Scalp contusion 02/02/2020 Overview (02/02/2020): Left temporal Recurrent acute otitis media 09/03/2010 Dysfunction of eustachian tube 09/03/2010 Resolved Problems Problem Noted Date Diagnosed Date Resolved Date Condctv hear loss, uni, left ear, w unrestr hear cntra side 02/10/2020 03/16/2020 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 Hemotympanum, left 02/02/2020 0 Hypertrophy of adenoids alone 09/03/2010 03/16/2020 Encounters Date Type Department Care Team Description 09/04/2025 1:37 AM CENSUS CLERK - 09/04/2025 2:18 PM [facility] Hospital Encounter [facility] Orthopedic Neurology Unit [address] [phone] Pacheco Cisneros MD Tubre, Dustin ([facility])MD Fall Discharge Disposition: Home or Self Care 09/04/2025 Travel from Last 3 Months Immunizations Immunization Administration Dates Next Due (M-M-R II/PRIORIX)(12 MO UP) MEASLES, MUMPS AND RUBELLA VIRUS VACCINE, 0.5 ML IM/SUBCUT 01/17/2010 (VARIVAX)(12 MOS UP)VARICELL A VIRUS VACCINE (PF) 0.5 ML, SUB CUT 01/17/2010 Family History Medical History Relation Name Comments [...] worry about transportation for future doctor visits, machine pecan picker medication, etc.? No 2024 Housing Stability [...] on file Legal Sex Female 7:03 AM CENSUS CLERK Gender Identity Not on file Sexual Orientation Not on file Last Filed Vital Signs Vital Sign Reading Time Taken Comments Blood Pressure 128/58 09/04/2025 7:00 AM CENSUS CLERK Pulse 103 09/04/2025 3:11 AM CENSUS CLERK Temperature 37 C (98.6 F) 09/04/2025 6:55 AM CENSUS CLERK Respiratory Rate 16 09/04/2025 7:00 AM CENSUS CLERK Oxygen Saturation 100% 09/04/2025 7:00 AM CENSUS CLERK Inhaled Oxygen Concentration - - Weight 58 kg (127 lb 13.9 oz) 09/04/2025 1:45 AM CENSUS CLERK Height 152.4 cm (5') 09/04/2025 1:45 AM CENSUS CLERK Body Mass Index 24.97 09/04/2025 1:45 AM CENSUS CLERK Plan of Treatment Health Maintenance Due Date Last Done Comments CHLAMYDIA SCREENING (ANNUAL) 11-24 YEARS 2016 DTAP/TDAP/TD VACCINES (5 - Tdap) 2016 01/17/2010, 2005, 2005, Additional history exists INFLUENZA VACCINE (#1) 2025 2, 07/24/2020, 07/30/2019, Additional history exists COVID-19 Vaccine ( - 2024-2 6 season) 2025 04/30/2021, 04/09/2021 HEPATITIS B VACCINES Completed 2005, 2005, 2005 HPV VACCINES Completed 02/05/2019, 09/09/2018 Procedures Procedure Name Priority Date/Time Associated Diagnosis Comments XR WRIST 2 VW BILAT Stat 09/04/2025 6 :[address] CHEST ABDOMEN PELVIS W CONT Stat 09/04/2025 3:[address] THORACIC LUMBAR WO CONTRAST Stat 09/04/2025 3:[address] CERVICAL SPINE WO CONTRAST Stat 09/04/2025 3:[address] HEAD WO CONTRAST Stat 09/04/2025 3 :49 AM CENSUS CLERK TYPE AND SCREEN Stat 09/04/2025 3:18 AM CENSUS CLERK ETHANOL LEVEL Stat 09/04/2025 3:18 AM CENSUS CLERK PROTIME-INR Stat 09/04/2025 2:05 AM CENSUS CLERK PTT Stat 09/04/2025 2:05 AM CENSUS CLERK EXTRA TUBE (BLUE) Stat 09/04/2025 2:0 5 AM CENSUS CLERK EXTRA TUBE Stat 09/04/2025 2:05 AM CENSUS CLERK HCG QUALITATIVE, SERUM Stat 2:05 AM CENSUS CLERK COMPREHENSIVE METABOLIC PANEL Stat 09/04/2025 2:05 AM CENSUS CLERK CBC WITH DIFFERENTIAL Stat 09/04/2025 2:05 AM CENSUS CLERK XR WRIST 2 VW BILAT Stat 09/04/2025 1 :58 AM CENSUS CLERK BASIC FRACTURE AND FRACTURE DISLOCATION TREATMENT Routine 09/04/2025 1:35 AM CENSUS CLERK BASIC FRACTURE AND FRACTURE DISLOCATION TREATMENT Routine 09/04/2025 1:35 AM CENSUS CLERK MODERATE SEDATION Routine 09/04/2025 1:3 5 AM CENSUS CLERK CRITICAL CARE Routine 09/04/2025 1:35 AM CENSUS CLERK from Last 3 Months Results * XR WRIST 2 VW BILAT (09/04/2025 6:34 AM CENSUS CLERK) Only the most recent of2 resultswithin the time period is included. Anatomical Region Laterality Modality Wrist / Hand Computed Radiogr aphy Impressions 09/04/2025 7:31 AM CENSUS CLERK IMPRESSION: Improved alignment of the comminuted distal radius fracture fragments. Persistence of impaction and dorsal displacement of the distal fragment. Narrative 09/04/2025 7:31 AM CENSUS CLERK This is a signed report from [facility] PROCEDURE: Right Wrist Date: 09/04/2025 6:31 AM [...] signed report from [facility] PROCEDURE: Right Wrist Date: 09/04/2025 6:31 AM [...] ABDOMEN PELVIS W CONT (09/04/2025 3:52 AM CENSUS CLERK) Anatomical Region Laterality Modality Chest Computed Tomogra phy 09/04/2025 3:41 AM CENSUS CLERK Impressions 09/04/2025 4:26 AM CENSUS CLERK IMPRESSION: 1. Nonspecific subpleural densities in the [...] workup is necessary. Narrative 09/04/2025 4:26 AM CENSUS CLERK This is a signed report from Radiology [...] left kidney. No further workup is necessary. Pacheco Cisneros MD CT ORDERABLES Final Result * CT THORACIC LUMBAR WO CONTRAST (09/04/2025 3:50 AM CENSUS CLERK) Anatomical Region Laterality Modality Spine Computed Tomogra phy 09/04/2025 3:41 AM CENSUS CLERK Impressions 09/04/2025 4:31 AM CENSUS CLERK IMPRESSION: There are no findings to suggest an acute fracture or subluxation at the thoracic or lumbar spine. Narrative 09/04/2025 4:31 AM CENSUS CLERK This is a signed report from Radiology [...] subluxation at the thoracic or lumbar spine. Pacheco Cisneros MD CT ORDERABLES Final Result * CT CERVICAL SPINE WO CONTRAST (09/04/2025 3:49 AM CENSUS CLERK) Anatomical Region Laterality Modality Spine Computed Tomogra phy 09/04/2025 3:35 AM CENSUS CLERK Impressions 09/04/2025 4:29 AM CENSUS CLERK IMPRESSION: There are no findings to suggest an acute fracture or subluxation within the cervical spine. Narrative 09/04/2025 4:29 AM CENSUS CLERK This is a signed report from [facility] CT CERVICAL SPINE: 09/04/2025 4:29 AM TECHNIQUE: [...] signed report from [facility] CT CERVICAL SPINE: 09/04/2025 4:29 AM TECHNIQUE: [...] CT HEAD WO CONTRAST (09/04/2025 3:49 AM CENSUS CLERK) Anatomical Region Laterality Modality Head Computed Tomogra phy Impressions 09/04/2025 4:06 AM CENSUS CLERK IMPRESSION: No acute intracranial process. Narrative 09/04/2025 4:06 AM CENSUS CLERK This is a signed report from Radiology [...] * TYPE AND SCREEN (09/04/2025 3:18 AM CENSUS CLERK) ABO GROUP O 09/04/2025 4:16 AM CENSUS CLERK [facility] RH (D) TYPE Positive 09/04/2025 4:16 AM CENSUS CLERK [facility] ANTIBODY SCREEN Negative 09/04/2025 4:16 AM CENSUS CLERK [facility] Blood Collection / Unknown 09/04/2025 3:18 AM CENSUS CLERK 09/04/2025 3:28 AM CENSUS CLERK Pacheco Cisneros MD BLOOD BANK ORDERABLES Edited Re sult - Final Performing Organization Address [facility] Co de Phone Number [facility] CLIA #[id number] [address] [facility] [address] * (ABNORMAL) ETHANOL LEVEL (09/04/2025 3:18 AM CENSUS CLERK) ETHANOL 19.78(H) <10.00 mg/dL 09/04/2025 3:48 AM CENSUS CLERK [facility] ETHANOL % 0.02 %w/v 09/04/2025 3:48 AM CENSUS CLERK [facility] Blood Collection / Unknown 09/04/2025 3:18 AM CENSUS CLERK 09/04/2025 3:28 AM CENSUS CLERK Narrative [facility] - 09/04/2025 3:48 AM CENSUS CLERK Lower limit of detection is 10.00 mg/dL. 50-100mg/dl: Impaired Reflexes; 100-300 mg/dl: Depression of APPLICATION DEVELOPMENT TEAM LEAD; 300 mg/dl or > : Coma may occur; 400 mg/dl or >: may occur This test is not intended for legal purposes or use in employment related testing. Pacheco Cisneros MD CHEMISTRY ORDERABLES Final Resu lt Performing Organization Address City/[facility]/ZIP Co de Phone Number [facility] CLIA #[id number] [address] [facility] [address] * EXTRA TUBE (BLUE) (09/04/2025 2:05 AM CENSUS CLERK) Blood Collection / Unknown 09/04/2025 2:05 AM CENSUS CLERK 09/04/2025 2:16 AM CENSUS CLERK us External Provider Htsp HEMATOLOGY ORDERABLES Fin al Result Performing Organization Address City/[facility]/ZIP Co de Phone Number [facility] CLIA #[id number] [address] [facility] [address] * HCG QUALITATIVE, BLOOD (09/04/2025 2:05 AM CENSUS CLERK) HCG QUAL, BLOOD Negative Negative 09/04/2025 2:36 AM CENSUS CLERK [facility] Blood Collection / Unknown 09/04/2025 2:05 AM CENSUS CLERK 09/04/2025 2:15 AM CENSUS CLERK Pacheco Cisneros MD CHEMISTRY ORDERABLES Final Resu lt Performing Organization Address [facility] Co de Phone Number [facility] CLIA #[id number] [address] [facility] [address] * (ABNORMAL) CBC WITH DIFFERENTIAL (09/04/2025 2:05 AM CENSUS CLERK) WBC 10.8 4.5 - 11.0 K/uL 09/04/2025 2:39 AM [facility] RBC 4.11(L) 4.50 - 5.90 M/uL 09/04/2025 2:39 AM [facility] HEMOGLOBIN 13.0 12.0 - 16.0 g/dL 09/04/2025 2:39 AM [facility] HEMATOCRIT 35.9(L) 36.0 - 46.0 % 09/04/2025 2:39 AM CENSUS CLERK [facility] MCV 87.3 77.0 - 100.0 fL 09/04/2025 2:39 AM [facility] MCH 31.6 26.0 - 34.0 pg 09/04/2025 2:39 AM [facility] MCHC 36.2 31.0 - 37.0 g/dL 09/04/2025 2:39 AM [facility] RDW 11.0(L) 11.5 - 14.5 % 09/04/2025 2:39 AM [facility] RDW-STDEV 35.7(L) 37.0 - 54.0 fL 09/04/2025 2:39 AM [facility] PLATELETS 457(H) 150 - 400 K/uL 09/04/2025 2:39 AM [facility] MPV 9.3 7.4 - 10.4 fL 09/04/2025 2:39 AM [facility] NEUTROPHILS 38(L) 42 - 75 % 09/04/2025 2:39 AM [facility] LYMPHOCYTES 53(H) 21 - 51 % 09/04/2025 2:39 AM [facility] MONOCYTES 8 1 - 8 % 09/04/2025 2:39 AM [facility] EOSINOPHILS 0 0 - 5 % 09/04/2025 2:39 AM [facility] BASOPHILS 0 0 - 1 % 09/04/2025 2:39 AM [facility] IMMATURE GRANULOCYTES 0 <1 % 09/04/2025 2:39 AM [facility] NEUTROPHIL ABSOLUTE 4.07 2.00 - 6.90 K/uL 09/04/2025 2:39 AM [facility] LYMPHOCYTE ABSOLUTE 5.71(H) 1.00 - 4.20 K/uL 09/04/2025 2:39 AM [facility] MONOCYTE ABSOLUTE 0.89(H) 0.00 - 0.70 K/uL 09/04/2025 2:39 AM [facility] EOSINOPHIL ABSOLUTE 0.04 0.00 - 0.60 K/uL 09/04/2025 2:39 AM [facility] BASOPHILS ABSOLUTE 0.04 0.00 - 0.20 K/uL 09/04/2025 2:39 AM CENSUS CLERK [facility] IMMATURE GRANULOCYTES ABSOLUTE <0.03 0.00 - 0.03 K/uL 09/04/2025 2:39 AM CENSUS CLERK [facility] Blood Collection / Unknown 09/04/2025 2:05 AM CENSUS CLERK 09/04/2025 2:15 AM CENSUS CLERK Pacheco Cisneros MD HEMATOLOGY ORDERABLES Final Res ult Performing Organization Address [facility] de Phone Number [facility] CLIA #[id number] [address] [facility] [address] * (ABNORMAL) PTT (09/04/2025 2:05 AM CENSUS CLERK) PTT 22.0(L) 24.0 - 32.0 seconds 09/04/2025 3:23 AM CENSUS CLERK [facility] Blood Collection / Unknown 09/04/2025 2:05 AM CENSUS CLERK 09/04/2025 2:16 AM CENSUS CLERK Pacheco Cisneros MD HEMATOLOGY ORDERABLES Final Res ult Performing Organization Address [facility] de Phone Number [facility] CLIA #[id number] [address] [facility] [place] [address] * PROTIME-INR (09/04/2025 2:05 AM CENSUS CLERK) PROTIME 11.4 9.5 - 12.1 Seconds 09/04/2025 3:23 AM CENSUS CLERK [facility] INR 1.0 0.9 - 1.1 09/04/2025 3:23 AM CENSUS CLERK [facility] Blood Collection / Unknown 09/04/2025 2:05 AM CENSUS CLERK 09/04/2025 2:16 AM CENSUS CLERK Pacheco Cisneros MD HEMATOLOGY ORDERABLES Final Res ult Performing Organization Address City/[facility]/ZIP Co de Phone Number [facility] CLIA #[id number] [address] [place] [address] * (ABNORMAL) COMPREHENSIVE METABOLIC PANEL (09/04/2025 2:05 AM CENSUS CLERK) SODIUM 140 136 - 145 mmol/L 09/04/2025 2:40 AM [facility] POTASSIUM 3.0(LL) 3.5 - 5.1 mmol/L 09/04/2025 2:40 AM [facility] CHLORIDE 107 98 - 107 mmol/L 09/04/2025 2:40 AM [facility] CO2 14(LL) 22 - 29 mmol/L 09/04/2025 2:40 AM [facility] CALCIUM 9.1 8.4 - 10.2 mg/dL 09/04/2025 2:40 AM [facility] BUN 12 7 - 26 mg/dL 09/04/2025 2:40 AM [facility] CREATININE 0.72 0.50 - 1.10 mg/dL 09/04/2025 2:40 AM [facility] GLUCOSE 127(H) 74 - 99 mg/dL 09/04/2025 2:40 AM [facility] TOTAL PROTEIN 7.9 6.4 - 8.3 g/dL 09/04/2025 2:40 AM [facility] ALBUMIN 4.4 3.5 - 5.0 g/dL 09/04/2025 2:40 AM [facility] BILIRUBIN TOTAL 0.5 0.2 - 1.2 mg/dL 09/04/2025 2:40 AM [facility] ALKALINE PHOSPHATASE 64 40 - 150 U/L 09/04/2025 2:40 AM [facility] AST 254(H) 11 - 34 U/L 09/04/2025 2:40 AM [facility] ALT 183(H) <34 U/L 09/04/2025 2:40 AM CENSUS CLERK [facility] GFR >60 >=60 mL/min/1.7 3 sq meter 09/04/2025 2:40 AM [facility] Comment:eGFR calculated with 2020 CKD-EPI equation. Vegetarian diet, extremely high or low muscle mass, and may affect results. Cystatin C with Glomerular Filtration Rate is a suitable alternative for these patients. ANION GAP 19(H) 8 - 16 mmol/L 09/04/2025 2:40 AM CENSUS CLERK [facility] OSMOLALITY, CALCULATED 281 275 - 295 mOsmol/kg H2O 09/04/2025 2:40 AM [facility] Blood Collection / Unknown 09/04/2025 2:05 AM CENSUS CLERK 09/04/2025 2:15 AM CENSUS CLERK Narrative [facility] - 09/04/2025 2:40 AM CENSUS CLERK AST2 reagent used for testing does not contain P5P supplementation and therefore may miss AST elevations in patients with B6 deficiency. This population may be as high as 10% in the [facility], with risk factors including malabsorption, drug interactions, and alcoholic hepatitis. ALT2 reagent used for testing does not contain P5P supplementation and therefore may miss ALT elevations in patients with B6 deficiency. This population may be as high as 10% in the [facility], with risk factors including malabsorption, drug interactions, and alcoholic hepatitis. us Pacheco Cisneros MD CHEMISTRY ORDERABLES Final Resu lt [facility] CLIA #[id number] [address] [place] [address] * Moderate Sedation (09/04/2025 1:35 AM CENSUS CLERK) Narrative Pacheco Cisneros MD - 09/04/2025 1:35 AM CENSUS CLERK Pacheco Cisneros MD 09/04/2025 10:02 AM Moderate [...] Alternatives discussed: Analgesia without sedation and anxiolysis [place] protocol: Procedure explained and questions answered to [...] Sedation: Propofol Intra-procedure monitoring: Blood pressure monitoring, classroom monitor, continuous capnometry, continuous pulse oximetry, frequent [...] Fracture and Fracture Dislocation (09/04/2025 1:35 AM CENSUS CLERK) Narrative Pacheco Cisneros MD - 09/04/2025 1:35 AM CENSUS CLERK Pacheco Cisneros MD 09/04/2025 10:02 AM Fracture and Fracture Dislocation Date/Time: 09/04/2025 1:35 AM Performed by: Pacheco Cisneros MD Authorized by: Pacheco Cisneros MD Consent: Consent obtained: Verbal and written Consent given by: Patient Risks, benefits, and alternatives were discussed: yes Risks discussed: Nerve damage, pain and vascular damage Alternatives discussed: No treatment, delayed treatment, alternative treatment, referral and observation [place] protocol: Procedure explained and questions answered to [...] and elastic bandage Additional details: Performed by il Post-procedure details: Distal neurologic exam: Unchanged Distal perfusion: distal pulses strong Range of motion: normal Procedure completion: Tolerated well, no immediate complications Pacheco Cisneros MD PROCEDURE/MINOR SURGICAL ORDERA BLES Final Result * Fracture and Fracture Dislocation (09/04/2025 1:35 AM CENSUS CLERK) Narrative Pacheco Cisneros MD - 09/04/2025 1:35 AM CENSUS CLERK Pacheco Cisneros MD 09/04/2025 10:02 AM Fracture and Fracture Dislocation Date/Time: 09/04/2025 1:35 AM Performed by: Pacheco Cisneros MD Authorized by: Pacheco Cisneros MD Consent: Consent obtained: Verbal and written Consent given by: Patient Risks, benefits, and alternatives were discussed: yes Risks discussed: Nerve damage, pain and vascular damage Alternatives discussed: No treatment, delayed treatment, alternative treatment, referral and observation [place] protocol: Procedure explained and questions answered to [...] Procedure completion: Tolerated well, no immediate complications Result [facility] Pacheco Cisneros MD PROCEDURE/MINOR SURGICAL ORDERA BLES Final Result * Critical Care (09/04/2025 1:35 AM CENSUS CLERK) Narrative Pacheco Cisneros MD - 09/04/2025 1:35 AM CENSUS CLERK Pacheco Cisneros MD 09/04/2025 10:02 AM Critical [...] MD PROCEDURE/MINOR SURGICAL ORDERA BLES Final Result from Last 3 Months Insurance RX [facility] [employer] [facility] [place] [id number] Advance Directives For more information, please contact: [phone] * Full Code (Latest Code Status on File) Date Activated Date Inactivated Comments 02/02/2020 7:49 AM 02/04/2020 6:32 PM Care Teams Disease And Insect Control Boss Relationship Specialty Start Date End Date Dedra Jo MD [address] [place] [address] PCP - General Family Practice 09/04/25
--- OUTSIDE RECORDS SUMMARY | 2025-09-04 19:35 | XMS_ITS | Encounter Summary ---
Author Organization [facility] Address [address] [place] [address] Care Team Providers Care Chargemaster Specialist Name Role Phone Dedra Jo MD Primary Care Provider [phone] Encounter Details Date Type Department Care Team (Late st Contact Info) Description 09/01/2009 Emergency [facility] [address] 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
--- OUTSIDE RECORDS SUMMARY | 2025-09-04 19:35 | XMS_ITS | Encounter Summary ---
Author Organization [facility] Address [address] Attn: Epic Prelude ADT [place] [address] Care Team Providers Care Renewals Manager Name Role Phone Dedra Jo MD Primary Care Provider [phone] Encounter Details Date Type Department Care Team (Latest Contact Info) Description 09/04/2025 Travel Social History Tobacco Use Types Packs/Day Years [...] worry about transportation for future doctor visits, berry picker medication, etc.? 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
--- OUTSIDE RECORDS SUMMARY | 2025-09-04 19:35 | XMS_ITS | Encounter Summary ---
Author Organization [facility] Address [address] [place] [address] Care Team Providers Care Weaver Tire Cord Name Role Phone Dedra Jo MD Primary Care Provider [phone] Encounter Details Date Type Department Care Team (Latest Contact Info) Description 06/18/2010 Outpatient Historical [facility] [address] [place] [address] Lakisha Carrasco DO NO ADDRESS ON FILE Fever, unspecified (Primary Dx); Cough Social History Tobacco Use Types Packs/Day Years Used Date Smoking Tobacco: Never Assessed Comments Unknown Sex and Gender Information Value Date Recorded Sex Assigned at Not on file 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
--- OUTSIDE RECORDS SUMMARY | 2025-09-04 19:35 | XMS_ITS | Encounter Summary ---
Author Organization [facility] Address [address] [place] [address] Care Team Providers Care Document Preparation Specialist Name Role Phone Dedra Jo MD Primary Care Provider [phone] Encounter Details Date Type Department Care Team (Late st Contact Info) Description 08/25/2009 Emergency [facility] [address] 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
--- OUTSIDE RECORDS SUMMARY | 2025-09-04 19:35 | XMS_ITS | Encounter Summary ---
Author Organization [facility] Address [address] [place] [address] Care Team Providers Care Senior Quantity Surveyor Name Role Phone Dedra Jo MD Primary Care Provider [phone] Encounter Details Date Type Department Care Team (Latest Contact Info) Description 06/18/2010 Outpatient Historical [facility] [address] [place] [address] Lakisha Carrasco DO NO ADDRESS ON FILE Fever, unspecified (Primary Dx) Social History Tobacco Use Types Packs/Day Years Used Date Smoking Tobacco: Never Assessed Comments Unknown Sex and Gender Information Value Date Recorded Sex Assigned at Not on file 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
--- OUTSIDE RECORDS SUMMARY | 2025-09-04 19:35 | XMS_ITS | Encounter Summary ---
Author Organization [facility] Address [address] [place] [address] Care Team Providers Care Crm Marketing Specialist Name Role Phone Dedra Jo MD Primary Care Provider [phone] Encounter Details Date Type Department Care Team (Late st Contact Info) Description 07/09/2010 Emergency [facility] [address] 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
--- NOTE | 2025-09-04 19:51 | XRR_ITS ---
PROCEDURE INFORMATION: Exam: XR Right Elbow Exam date and time: 09/04/2025 10:19 PM Age: 20 years old Clinical indication: Injury or trauma; Blunt trauma (contusions or hematomas); Elbow; Right; Injury details: Patient sustained a 15 foot fall in the very early a. M. Hours today and was [place]. Bilateral wrist fractures. Both arms in casts for XR. ; Additional info: Fall 15 ft, fractures and reduced at [facility] but no records TECHNIQUE: Imaging protocol: Radiologic exam of the right elbow. Views: 3 or more views. COMPARISON: CR (UP EX, ) 09/04/2025 10:14 PM FINDINGS: Limitations: Examination is made through a semi opaque splint which obscures fine bone detail. Bones/joints: Limited views are obtained and lateral and oblique projections. No fracture or dislocation of the elbow is identified. Elbow is held in a 90 degree fixed position by the splint. Soft tissues: Soft tissues are obscured by the splint. XR/XR elbow RT min 3V* [id number] IMPRESSION: Limited exam. No fracture is identified.
--- NOTE | 2025-09-04 19:51 | XRR_ITS ---
PROCEDURE INFORMATION: Exam: XR Left Wrist Exam date and time: 09/04/2025 8:45 PM Age: 20 years old Clinical indication: Injury or trauma; Blunt trauma (contusions or hematomas); Left; Injury details: Patient sustained a 15 foot fall in the very early a. M. Hours today and was evaluated at an er out of state. Bilateral wrist fractures. Both arms in casts for XR. ; Additional info: Fall 15 ft, fractures and reduced at [facility] but no records TECHNIQUE: Imaging protocol: Radiologic exam of the left wrist. Views: 3 or more views. COMPARISON: No relevant prior studies available. FINDINGS: Limitations: Examination is made through a semi opaque splint which obscures fine bone detail. Bones/joints: There is impacted fracture of the distal left radius with some mild dorsal displacement and dorsal angulation of the distal radius. There is also what appears to be displaced ulnar styloid fracture. Soft tissues: Soft tissues are obscured by the splint. XR/XR wrist LT min 3V* [id number] IMPRESSION: Fracture of the distal left radius and ulnar styloid in splint.
--- NOTE | 2025-09-04 19:51 | XRR_ITS ---
PROCEDURE INFORMATION: Exam: XR Right Wrist Exam date and time: 09/04/2025 10:14 PM Age: 20 years old Clinical indication: Injury or trauma; Blunt trauma (contusions or hematomas); Right; Injury details: Patient sustained a 15 foot fall in the very early a. M. Hours today and was evaluated at an er out of state. Bilateral wrist fractures. Both arms in casts for XR. ; Additional info: Fall 15 ft, fractures and reduced at [facility] but no records TECHNIQUE: Imaging protocol: Radiologic exam of the right wrist. Views: 3 or more views. COMPARISON: No relevant prior studies available. FINDINGS: Limitations: Examination is made through a semi opaque splint which obscures fine bone detail. Bones/joints: There is impacted fracture of the distal right radius with mild dorsal tilt of the distal articular surface. Soft tissues: Soft tissues are obscured by the splint. XR/XR wrist RT min 3V* [id number] IMPRESSION: Impacted fracture distal right radius.
--- NOTE | 2025-09-04 19:51 | CTR_ITS ---
PROCEDURE INFORMATION: Exam: CT Chest With Contrast; Diagnostic Exam date and time: 09/04/2025 9:35 PM Age: 20 years old Clinical indication: Injury or trauma; Blunt; Prior surgery; Surgery date: 6+ months; Surgery type: Iud; Patient sustained a 15 foot fall in the very early a. M. Hours today and was evaluated at an er out of state and cleared of any internal injury. Patient endorsing severe epigastric pain. ; Additional info: Fall from 15 ft yesterday, pain with insp on R, rabdpn TECHNIQUE: Imaging protocol: Diagnostic computed tomography of the chest with contrast. Radiation optimization: All CT scans at this facility use at least one of these dose optimization techniques: automated exposure control; mA and/or kV adjustment per patient size (includes targeted exams where dose is matched to clinical indication); or iterative reconstruction. Contrast material: OMNI 350; Contrast volume: 100 ml; Contrast route: INTRAVENOUS (IV); COMPARISON: CT cervical spin wo con* [id number] 02/01/2020 7:22 PM RADIATION DOSE METRICS: Total DLP (mGy-cm): 4.66 FINDINGS: Lungs: Lungs are clear. Pleural spaces: Unremarkable. No pneumothorax. No pleural effusion. Heart: Heart is within normal limits of size. Mediastinal space: There is no evidence of mediastinal fluid, masses, or gas. Lymph nodes: There is no evidence of lymphadenopathy. Vasculature: There is no thoracic aortic aneurysm or dissection. Bones/joints: There is no evidence of acute fracture. Soft tissues: Unremarkable. PROCEDURE INFORMATION: Exam: CT Abdomen And Pelvis With Contrast Exam date and time: 09/04/2025 9:35 PM Age: 20 years old Clinical indication: Injury or trauma; Blunt; Prior surgery; Surgery date: 6+ months; Surgery type: Iud; Patient sustained a 15 foot fall in the very early a. M. Hours today and was evaluated at an er out of state and cleared of any internal injury. Patient endorsing severe epigastric pain. ; Additional info: Fall from 15 ft yesterday, pain with insp on R, rabdpn TECHNIQUE: Imaging protocol: Computed tomography of the abdomen and pelvis with contrast. Radiation optimization: All CT scans at this facility use at least one of these dose optimization techniques: automated exposure control; mA and/or kV adjustment per patient size (includes targeted exams where dose is matched to clinical indication); or iterative reconstruction. Contrast material: OMNI 350; Contrast volume: 100 ml; Contrast route: INTRAVENOUS (IV); COMPARISON: No relevant prior studies available. RADIATION DOSE METRICS: Total DLP (mGy-cm): 2044.66 FINDINGS: Limitations: Study somewhat limited due to streak artifact created by the patient being scanned with the arms at the sides. Study is moderately limited by patient respiratory motion. Liver: There is no focal abnormality within the liver. Gallbladder and biliary ducts: Density within the gallbladder could represent small gallstones, or more likely vicarious excretion of contrast. There is no common bile duct dilation. Pancreas: The pancreas is normal. Spleen: The spleen is normal. Adrenal glands: The adrenal glands are normal. Kidneys and ureters: The kidneys are normal. There is no evidence of hydronephrosis. There is no evidence of renal or ureteral calcifications. Stomach and bowel: There is no evidence of colitis/diverticulitis. Appendix: A normal appendix is identified. Intraperitoneal space: There is a small amount of free fluid in the posterior pelvis, within physiologic limits. Vasculature: The aorta is normal. Lymph nodes: There is no evidence of lymphadenopathy. Urinary bladder: Unremarkable as visualized. Reproductive: There is a 2 cm sized corpus luteum in the left ovary. There is a T-shaped IUD within the uterus. Bones/joints: Bilateral distal radial fractures are identified. Both forearms are splinted. No acute fracture is seen in the abdominal or pelvic region. Soft tissues: Unremarkable. CT/CT chest abdpel w/*[id number] IMPRESSION: No acute findings within the chest. IMPRESSION: 1. No acute findings in the abdomen or pelvis. 2. Bilateral distal radial fractures
--- NOTE | 2025-09-04 19:51 | XRR_ITS ---
PROCEDURE INFORMATION: Exam: XR Left Elbow Exam date and time: 09/04/2025 8:50 PM Age: 20 years old Clinical indication: Injury or trauma; Blunt trauma (contusions or hematomas); Elbow; Left; Injury details: Patient sustained a 15 foot fall in the very early a. M. Hours today and was evaluated at an er out of state. Bilateral wrist fractures. Both arms in casts for XR. ; Additional info: Fall 15 ft, fractures and reduced at [facility] but no records TECHNIQUE: Imaging protocol: Radiologic exam of the left elbow. Views: 3 or more views. COMPARISON: CR XR wrist LT min 3V* [id number] 09/04/2025 8:45 PM FINDINGS: Limitations: Examination is made through a semi opaque splint which obscures fine bone detail. Bones/joints: Lateral and oblique views of the left elbow do not show evidence of fracture or dislocation. The elbow is in a 90 degree position held by the splint or cast. Soft tissues: Soft tissues are obscured by the splint. XR/XR elbow LT min 3V* [id number] IMPRESSION: Limited exam. No evidence of fracture or dislocation.
--- NOTE | 2025-09-04 19:54 | ED_ITS ---
HPI - Extremity Problem 2 General: Chief complaint: Extremity Injury, Upper Stated complaint: uncontrolled pain broken wrists Time Seen by Provider: 09/04/25 19:33 History of Present Illness: Patient is a 20YO female with a history of alpha-gal allergy and celiac disease who presents for follow-up after a traumatic fall from approximately 15 feet in [place], [place], resulting in multiple fractures of both wrists. The patient was previously admitted to a hospital where she underwent procedural sedation and closed reduction of her wrist fractures, followed by splinting. She was admitted for observation due to concern for possible internal injuries, with laboratory findings notable for significant hypokalemia and a CT scan revealing abnormal liver findings not attributed to trauma. She reports persistent and significant pain in both wrists, elbows, and lower left abdomen, as well as rib soreness and pain with deep inspiration. She has taken hydrocodone for pain approximately four hours prior to presentation, but still in moderate pain. She was scheduled to follow-up with orthopedics at home but given an unclear timeline. Related Data Home Medications ?Medication ?Instructions ?Recorded ?Confirmed hydrocodone 10 mg-acetaminophen 1 tab PO Q4H PRN Pain 09/05/25 09/05/25 325 mg tablet hydroxyzine pamoate 25 mg capsule 25 mg PO Q6H PRN Anx iety 09/05/25 09/05/25 Allergies Allergy/AdvReac Type Severity Reaction Status Date / Time Alpha-Gal Allergy ALGY-Anaphy Verified 09/04/25 19:24 ([id number]-8,3-Gala laxis doxycycline Allergy ADR-Gastrointestinal Verified 09/04/25 19:24 Upset gluten Allergy Unknown Verified 09/05/25 01:17 Review of Systems 2 General: Reports: 10 or more systems reviewed and unremarkable except in HPI and below PFSH ED 2 PFSH: Social History Smoking and tobacco/nicotine status: never used tobacco/nicotine Physical Exam 2 Narrative: EXAM NARRATIVE: Patient in mild distress secondary to pain but well-appearing, afebrile, vital signs stable on arrival. GCS 15, follows commands and answers questions appropriately. Bilateral wrist in splints, distal digits with good coloration, no significant swelling, motor and sensation intact. No pain or tenderness to bilateral lower extremities. Diffuse right-sided abdominal tenderness otherwise soft, nondistended, no overlying skin changes. No chest wall tenderness, no obvious deformity, breath sounds equal and bilateral, nothing adventitious. Course 2 Vital Signs: Vital signs: Vital Signs Temperature 98.2 F 09/05/25 04:00 Pulse Rate 103 H 09/05/25 04:00 Respiratory Rate 19 H 09/05/25 04:00 Blood Pressure 112/54 09/05/25 04:00 Pulse Oximetry 95 09/05/25 04:00 Oxygen Delivery Me thod Room Air 09/05/25 04:00 Oxygen Flow Rate 2 09/04/25 23:45 MDM - Extremity (Nontraumatic) Medical Decision Making -ddx: Mechanical fall, wrist fractures, posttraumatic pain, hollow viscus injury, rib fracture, pneumothorax - Patient with fairly significant traumatic injury yesterday, had reportedly bilateral wrist fractures either to be reduced before splinting but unclear. Was then admitted in observation for short amount of time for possible intra- abdominal injury but then was discharged shortly thereafter and to follow-up with orthopedics but unclear timeline, patient with pain to her wrist today, pain on inspiration and moderate right-sided abdominal tenderness, will repeat CT chest, CT abdomen, get x-rays of her upper extremities after reduction and splinting, provide pain control, get basic labs and reassess. - CT of her chest and abdomen negative for any acute traumatic injury. Her upper extremity x-ray showed mildly displaced and impacted wrist fractures, pain was difficult to control, orthopedics was consulted and stated he could probably add her on tomorrow for bilateral ORIF, patient was then admitted to the hospitalist for management until the OR, kept n.p.o., pain improved, parents at bedside and agreeable with plan of care, admitted in stable condition. Lab Data 09/04/25 21:25 09/04/25:25 Radiology Impressions Chest/Abdomen/Pelvis CT 09/04/25 19:51 IMPRESSION: No acute findings within the chest. IMPRESSION: 1. No acute findings in the abdomen or pelvis. 2. Bilateral distal radial fractures Elbow X-Ray 09/04/25 19:51 IMPRESSION: Limited exam. No fracture is identified. Wrist X-Ray 09/04/25 19:51 IMPRESSION: Fracture of the distal left radius and ulnar styloid in splint. Laboratory Results WBC 9.65 10^3/uL (4.5-13.0) 09/04/25: RBC 4.15 10^6/uL (3.85-5.65) 09/04/25: Hgb 12.80 g/dL (12.4-14.8) 09/04/25: Hct 37.0 % (36-47) 09/04/25: MCV 89.2 fl (85-98) 09/04/25: MCH 30.8 pg (27-33) 09/04/25: MCHC 34.6 g/dL (30-55) 09/04/25: RDW 11.4 % (12.1-15.1) L 09/04/25 Plt Count 381 10^3/cmm (157-399) 09/04/25: MPV 8.9 fL (7.4-10.4) 09/04/25: Neut % (Auto) 61.0 % 09/04/25: Lymph % (Auto) 22.3 % 09/04/25: [place] % (Auto) 15.8 % 09/04/25: Eos % (Auto) 0.4 % 09/04/25 Baso % (Auto) 0.3 % 09/04/25 Neut # (Auto) 5.89 10^3/uL (1.8-8.0) 09/04/25: Lymph # (Auto) 2.2 10^3/uL (1.5-6.5) 09/04/25: [place] # (Auto) 1.5 10^3/uL (0.2-0.9) H 09/04/25: Eos # (Auto) 0.0 10^3/uL (0.0-0.8) 09/04/25: Baso # (Auto) 0.0 10^3/uL (0.0-0.1) 09/04/25: Nucleated RBC % (auto) 0 % 09/04/25: Nucleated RBCs # 0.0 /100WBC 09/04/25: Sodium 134 mmol/L (136-145) L 09/04/25: Potassium 3.8 mmol/L (3.5-5.1) 09/04/25: Chloride 98 mmol/L (98-107) 09/04/25: Carbon Dioxide 19 mmol/L (22-29) L 09/04/25: Anion Gap 20.8 (5-19) H 09/04/25: BUN 10 mg/dL (6-20) 09/04/25: Creatinine 0.7 mg/dL (0.5-0.9) 09/04/25: GFR Calculation 106.7 mL/min (90-130) 09/04/25: Glucose 90 mg/dL (65-115) 09/04/25: Calculated Osmolality 277 mOsm/kg (285-295) L 09/04/25: Calcium 9.6 mg/dL (8.5-10.5) 09/04/25: Total Bilirubin 1.0 mg/dL (0.15-1.2) 09/04/25: AST 104 U/L (0-32) H 09/04/25: ALT 119 U/L (0-33) H 09/04/25: Alkaline Phosphatase 80 U/L (35-105) 09/04/25: Total Protein 7.7 g/dL (6.6-8.7) 09/04/25: Albumin 4.8 g/dL (3.5-5.2) 09/04/25: Globulin 2.9 g/dL (1.3-4.6) 09/04/25: Lipase 21 U/L (13-60) 09/04/25: HCG, Qual Negative (Negative) 09/04/25: All radiology interpretation(s) finalized by discharge Discharge Plan Discharge Patient Disposition: Admitted As Inpatient Admit Provider: Teddy Enriquez Clinical Impression: Wrist fracture, bilateral Condition: Stable Coding Level of Care Code ED [employer] for Catia Olivera
[2025-09-04] MEDS: morphine 4 mg/mL SDV 1 mL IVP ×2 (21:00→22:08)
[2025-09-04] MEDS: ketamine 100 mg/mL Inj 5 mL IM (21:15)
[2025-09-04] MEDS: ondansetron 2 mg/ML SDV 2 mL 4 MG IVP (21:20)
[2025-09-04 21:30] LABS: Hematocrit 37.0 % (36-47); Hemoglobin 12.80 g/dL (12.4-14.8); Mean Corpuscular HGB Conc 34.6 g/dL (30-55); Mean Corpuscular Hemoglobin 30.8 pg (27-33); Mean Corpuscular Volume 89.2 fl (85-98); Nucleated Red Blood Cells % 0 %; Platelet Count 381 10^3/cmm (157-399); Red Blood Count 4.15 10^6/uL (3.85-5.65); White Blood Count 9.65 10^3/uL (4.5-13.0)
[2025-09-04] MEDS: iohexol 350 mg/mL 500 mL Btl (per mL) IV (21:43)
[2025-09-04 21:52] LABS: HCG, Serum Qual Negative (Negative)
[2025-09-04 21:58] LABS: Alanine Aminotransferase 119 U/L (0-33); Albumin Level 4.8 g/dL (3.5-5.2); Alkaline Phosphatase 80 U/L (35-105); Anion Gap 20.8 (5-19); Aspartate Amino Transferase 104 U/L (0-32); Blood Urea Nitrogen 10 mg/dL (6-20); Calcium 9.6 mg/dL (8.5-10.5); Carbon Dioxide 19 mmol/L (22-29); Chloride 98 mmol/L (98-107); Globulin 2.9 g/dL (1.3-4.6); Glucose 90 mg/dL (65-115); Lipase 21 U/L (13-60); Osmolality Calculated 277 mOsm/kg (285-295); Potassium 3.8 mmol/L (3.5-5.1); Sodium 134 mmol/L (136-145); Total Protein 7.7 g/dL (6.6-8.7)
--- NOTE | 2025-09-04 23:53 | PC.NURSE ---
Gave pt 8 oz of chicken broth at 2345 and informed pt and family that pt is to have nothing by mouth after 0030. Pt also requested a gatorade. Pt's family was going to vending to get pt a gatorade.
[2025-09-05] VITALS (28 sets, daily range): BP systolic 98–157; BP diastolic 45–88; PULSE 79–143; RESP 12–23; TEMP 36.6–37.2; O2SAT 94–100; BMI 26.4
[2025-09-05] MEDS: morphine 4 mg/mL SDV 1 mL IVP ×2 (00:20→10:16)
[2025-09-05] MEDS: ondansetron 2 mg/ML SDV 2 mL 4 MG IVP ×3 (00:20→20:53)
--- NOTE | 2025-09-05 00:59 | PM.HP ---
Providers/Chief Complaint Admitting Physician: Teddy Enriquez MD Chief Complaint: uncontrolled pain broken wrists History of Present Illness Светлана Patel is a 20 year old female is a student at [employer]. The patient was in the [facility] area staying in a hotel and decided to climb on construction site next door and the building collapsed and she fell 15 feet and sustained abdominal injury and bilateral fractured wrists. She was observed from 2 AM in the emergency department and then briefly in the hospital from 7 AM to 2 PM and discharged from [facility]. They did not have follow-up for wrist fracture other than following up at [facility] and so elected to go to another ER. Dr. Prater discussed case with Dr. Sheehan who requests hospitalist assistance with admission and has scheduled surgery for the morning. Patient states her abdominal pain is still present but improved from this morning. Dr. Prater repeated chest abdomen pelvis CT scan no acute findings. Patient has history of celiac disease and alpha gal. She also has some anxiety that she takes hydroxyzine but is on no other medications. No allergies. She does have GI upset with doxycycline. Patient also has an IUD Medications/Allergies Home Medications ?Medication ?Instructions ?Recorded ?Confirmed ?Last Taken ?Type cephalexin 500 mg capsule 500 mg PO BID 10 days #20 caps 04/05/23 04/05/23 Unknown Rx Allergies Allergy/AdvReac Type Severity Reaction Status Date / Time Alpha-Gal Allergy ALGY-Anaphy Verified 09/04/25 19:24 (Huhpeewfu-Pigdy-4,3-Gala laxis doxycycline Allergy ADR-Gastrointestinal Verified 09/04/25 19:24 Upset PFSH Acute PFSH: Social History Smoking and tobacco/nicotine status: never used tobacco/nicotine Vitals/I&O/Wt Last Vital Signs Temp 98.1 F 09/04/25 19:19 Pulse 105 H 09/05/25 00:27 Resp 16 09/05/25 00:20 BP 128/61 09/05/25 00:27 Pulse Ox 99 09/05/25 00:27 O2 Del Method Nasal Cannula 09/04/25 23:45 O2 Flow Rate 2 09/04/25 23:45 09/04/25 09/04/25 09/05/25 14:59 22:59 06:59 Intake Total 1000 / 1000 Balance 1000 / 1000 Weight last 48 hrs Weight 54.431 kg Physical Exam Narrative: General well-developed well-nourished female in no acute cardiopulmonary distress she is a little bit sedated from pain meds CV regular rate and rhythm Lungs clear to auscultation bilaterally Abdomen positive bowel tones soft minimal diffuse reported pain but not really tender and no rebound Calves no tenderness cords pretrip edema Skin warm and dry Mentation alert and oriented x 3 Data 09/04/25 21:25 09/04/25 21:25 A&P Assessment and plan 1. Wrist fracture, bilateral: Patient has bilateral distal radial fractures as well as a left ulnar styloid. Dr. Prater and Dr. Sheehan have reviewed and discussed surgical plan as well as management of all the trauma. I am asked to admit the patient for management of wrist pain and IV fluid prescription with her mild hyponatremia and tachycardia 2. Tachycardia: Will give normal saline with 20 mg potassium chloride at 100 cc an hour 3. Hyponatremia: As above PDMP PDMP Reviewed: Not Reviewed Attestations Medical Necessity Statement*: Patient is admitted to observation with plans for surgery in the morning anticipate that she will be here less than 2 midnights Coding Level of Care Code 60169 Diagnoses Wrist fracture, bilateral S62.101A; S62.102A Tachycardia R00.0 Hyponatremia E87.1 Time Spent (min) 45
[2025-09-05] MEDS: sodium chlor 0.9% + KCl 20 mEq 20 MEQ/1,000 ML BAG 100 MEQ IV ×2 (01:23→11:05)
[2025-09-05] MEDS: oxyCODONE 5 mg IR Tab/Cap PO (01:23)
--- OUTSIDE RECORDS SUMMARY | 2025-09-05 08:53 | XMS_ITS | Encounter Summary ---
Author Organization [facility] Address [address] [place] [address] Care Team Providers Care Strategic Partnership Specialist Name Role Phone Dedra Jo MD Primary Care Provider Encounter Details Date Type Department Care Team (Late st Contact Info) Description 08/25/2009 Emergency [facility] [address] 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
--- OUTSIDE RECORDS SUMMARY | 2025-09-05 08:53 | XMS_ITS | Clinical Summary ---
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
--- OUTSIDE RECORDS SUMMARY | 2025-09-05 08:53 | XMS_ITS | Clinical Summary ---
Author Organization [facility] Address [address] [place] [address] Care Team Providers Care Triple Air Valve Tester Name Role Phone Dedra Jo MD Primary Care Provider [phone] Allergies No known active allergies Medications MELATONIN [...] Tablet 5 Active naloxone (NARCAN) 4 mg/spray [place], Non-Aerosol EMERGENCY USE ONLY: Administer 1 spray [...] Department Care Team Description 09/04/2025 1:37 AM FACILITIES OPERATOR - 09/04/2025 2:18 PM [facility] Hospital Encounter [facility] Orth[facility] Neurology Unit [address] [phone] Pacheco Cisneros MD Tubre, Dustin ([facility])MD Fall Discharge Disposition: Home or Self [...] worry about transportation for future doctor visits, picking table worker medication, etc.? No 2024 Housing Stability Answer [...] on file Legal Sex Female 7:03 AM FACILITIES OPERATOR Gender Identity Not on file Sexual Orientation Not on file Last Filed Vital Signs Vital Sign Reading Time Taken Comments Blood Pressure 128/58 09/04/2025 7:00 AM FACILITIES OPERATOR Pulse 103 09/04/2025 3:11 AM FACILITIES OPERATOR Temperature 37 C (98.6 F) 09/04/2025 6:55 AM FACILITIES OPERATOR Respiratory Rate 16 09/04/2025 7:00 AM FACILITIES OPERATOR Oxygen Saturation 100% 09/04/2025 7:00 AM FACILITIES OPERATOR Inhaled Oxygen Concentration - - Weight 58 kg (127 lb 13.9 oz) 09/04/2025 1:45 AM FACILITIES OPERATOR Height 152.4 cm (5') 09/04/2025 1:45 AM FACILITIES OPERATOR Body Mass Index 24.97 09/04/2025 1:45 AM FACILITIES OPERATOR Plan of Treatment Health Maintenance Due Date [...] VW BILAT Stat 09/04/2025 6 :[address] CHEST ABDOMEN PELVIS W CONT Stat 09/04/2025 3:[address] THORACIC LUMBAR WO CONTRAST Stat 09/04/2025 3:[address] CERVICAL SPINE WO CONTRAST Stat 09/04/2025 3:[address] HEAD WO CONTRAST Stat 09/04/2025 3 :49 AM FACILITIES OPERATOR TYPE AND SCREEN Stat 09/04/2025 3:18 AM FACILITIES OPERATOR ETHANOL LEVEL Stat 09/04/2025 3:18 AM FACILITIES OPERATOR PROTIME-INR Stat 09/04/2025 2:05 AM FACILITIES OPERATOR PTT Stat 09/04/2025 2:05 AM FACILITIES OPERATOR EXTRA TUBE (BLUE) Stat 09/04/2025 2:0 5 AM FACILITIES OPERATOR EXTRA TUBE Stat 09/04/2025 2:05 AM FACILITIES OPERATOR HCG QUALITATIVE, SERUM Stat 2:05 AM FACILITIES OPERATOR COMPREHENSIVE METABOLIC PANEL Stat 09/04/2025 2:05 AM FACILITIES OPERATOR CBC WITH DIFFERENTIAL Stat 09/04/2025 2:05 AM FACILITIES OPERATOR XR WRIST 2 VW BILAT Stat 09/04/2025 1 :58 AM FACILITIES OPERATOR BASIC FRACTURE AND FRACTURE DISLOCATION TREATMENT Routine 09/04/2025 1:35 AM FACILITIES OPERATOR BASIC FRACTURE AND FRACTURE DISLOCATION TREATMENT Routine 09/04/2025 1:35 AM FACILITIES OPERATOR MODERATE SEDATION Routine 09/04/2025 1:3 5 AM FACILITIES OPERATOR CRITICAL CARE Routine 09/04/2025 1:35 AM FACILITIES OPERATOR from Last 3 Months Results * XR WRIST 2 VW BILAT (09/04/2025 6:34 AM FACILITIES OPERATOR) Only the most recent of2 resultswithin the time period is included. Anatomical Region Laterality Modality Wrist / Hand Computed Radiogr aphy Impressions 09/04/2025 7:31 AM FACILITIES OPERATOR IMPRESSION: Improved alignment of the comminuted distal radius fracture fragments. Persistence of impaction and dorsal displacement of the distal fragment. Narrative 09/04/2025 7:31 AM FACILITIES OPERATOR This is a signed report from Radiology [...] ABDOMEN PELVIS W CONT (09/04/2025 3:52 AM FACILITIES OPERATOR) Anatomical Region Laterality Modality Chest Computed Tomogra phy 09/04/2025 3:41 AM FACILITIES OPERATOR Impressions 09/04/2025 4:26 AM FACILITIES OPERATOR IMPRESSION: 1. Nonspecific subpleural densities in the [...] workup is necessary. Narrative 09/04/2025 4:26 AM FACILITIES OPERATOR This is a signed report from Radiology [...] THORACIC LUMBAR WO CONTRAST (09/04/2025 3:50 AM FACILITIES OPERATOR) Anatomical Region Laterality Modality Spine Computed Tomogra phy 09/04/2025 3:41 AM FACILITIES OPERATOR Impressions 09/04/2025 4:31 AM FACILITIES OPERATOR IMPRESSION: There are no findings to suggest an acute fracture or subluxation at the thoracic or lumbar spine. Narrative 09/04/2025 4:31 AM FACILITIES OPERATOR This is a signed report from Radiology [...] CERVICAL SPINE WO CONTRAST (09/04/2025 3:49 AM FACILITIES OPERATOR) Anatomical Region Laterality Modality Spine Computed Tomogra phy 09/04/2025 3:35 AM FACILITIES OPERATOR Impressions 09/04/2025 4:29 AM FACILITIES OPERATOR IMPRESSION: There are no findings to suggest an acute fracture or subluxation within the cervical spine. Narrative 09/04/2025 4:29 AM FACILITIES OPERATOR This is a signed report from Radiology [...] CT HEAD WO CONTRAST (09/04/2025 3:49 AM FACILITIES OPERATOR) Anatomical Region Laterality Modality Head Computed Tomogra phy Impressions 09/04/2025 4:06 AM FACILITIES OPERATOR IMPRESSION: No acute intracranial process. Narrative 09/04/2025 4:06 AM FACILITIES OPERATOR This is a signed report from Radiology [...] * TYPE AND SCREEN (09/04/2025 3:18 AM FACILITIES OPERATOR) ABO GROUP O 09/04/2025 4:16 AM FACILITIES OPERATOR [facility] RH (D) TYPE Positive 09/04/2025 4:16 AM FACILITIES OPERATOR [facility] ANTIBODY SCREEN Negative 09/04/2025 4:16 AM FACILITIES OPERATOR [facility] Blood Collection / Unknown 09/04/2025 3:18 AM FACILITIES OPERATOR 09/04/2025 3:28 AM FACILITIES OPERATOR Pacheco Cisneros MD BLOOD BANK ORDERABLES Edited Re sult - Final Performing Organization Address [facility] [[email or web address]] Co de Phone Number [facility] CLIA #[id number] [address] [place] [address] * (ABNORMAL) ETHANOL LEVEL (09/04/2025 3:18 AM FACILITIES OPERATOR) ETHANOL 19.78(H) <10.00 mg/dL 09/04/2025 3:48 AM FACILITIES OPERATOR [facility] ETHANOL % 0.02 %w/v 09/04/2025 3:48 AM FACILITIES OPERATOR [facility] Blood Collection / Unknown 09/04/2025 3:18 AM FACILITIES OPERATOR 09/04/2025 3:28 AM FACILITIES OPERATOR Narrative [facility] - 09/04/2025 3:48 AM FACILITIES OPERATOR Lower limit of detection is 10.00 mg/dL. 50-100mg/dl: Impaired Reflexes; 100-300 mg/dl: Depression of AUTOMOTIVE SALES MANAGER; 300 mg/dl or > : Coma may occur; 400 mg/dl or >: may occur This test is not intended for legal purposes or use in employment related testing. Pacheco Cisneros MD CHEMISTRY ORDERABLES Final Resu lt Performing Organization Address City/[facility]/ZIP Co de Phone Number [facility] CLIA #[id number] [address] [place] [address] * EXTRA TUBE (BLUE) (09/04/2025 2:05 AM FACILITIES OPERATOR) Blood Collection / Unknown 09/04/2025 2:05 AM FACILITIES OPERATOR 09/04/2025 2:16 AM FACILITIES OPERATOR us External Provider Htsp HEMATOLOGY ORDERABLES Fin al Result Performing Organization Address City/[facility]/ZIP Co de Phone Number [facility] CLIA #[id number] [address] [place] [address] * HCG QUALITATIVE, BLOOD (09/04/2025 2:05 AM FACILITIES OPERATOR) HCG QUAL, BLOOD Negative Negative 09/04/2025 2:36 AM FACILITIES OPERATOR [facility] Blood Collection / Unknown 09/04/2025 2:05 AM FACILITIES OPERATOR 09/04/2025 2:15 AM FACILITIES OPERATOR Pacheco Cisneros MD CHEMISTRY ORDERABLES Final Resu lt Performing Organization Address [facility] [[email or web address]] Co de Phone Number [facility] CLIA #[id number] [address] [place] [address] * (ABNORMAL) CBC WITH DIFFERENTIAL (09/04/2025 2:05 AM FACILITIES OPERATOR) WBC 10.8 4.5 - 11.0 K/uL 09/04/2025 2:39 AM [facility] RBC 4.11(L) 4.50 - 5.90 M/uL 09/04/2025 2:39 AM [facility] HEMOGLOBIN 13.0 12.0 - 16.0 g/dL 09/04/2025 2:39 AM [facility] HEMATOCRIT 35.9(L) 36.0 - 46.0 % 09/04/2025 2:39 AM FACILITIES OPERATOR [facility] MCV 87.3 77.0 - 100.0 fL 09/04/2025 2:39 AM [facility] MCH 31.6 26.0 - 34.0 pg 09/04/2025 2:39 AM [facility] MCHC 36.2 31.0 - 37.0 g/dL 09/04/2025 2:39 AM [facility] RDW 11.0(L) 11.5 - 14.5 % 09/04/2025 2:39 AM [facility] RDW-STDEV 35.7(L) 37.0 - 54.0 fL 09/04/2025 2:39 AM [facility] PLATELETS 457(H) 150 - 400 K/uL 09/04/2025 2:39 AM [facility] MPV 9.3 7.4 - 10.4 fL 09/04/2025 2:39 AM [facility] NEUTROPHILS 38(L) 42 - 75 % 09/04/2025 2:39 AM [facility] LYMPHOCYTES 53(H) 21 - 51 % 09/04/2025 2:39 AM [facility] MONOCYTES 8 1 - 8 % 09/04/2025 2:39 AM [facility] EOSINOPHILS 0 0 - 5 % 09/04/2025 2:39 AM [facility] BASOPHILS 0 0 - 1 % 09/04/2025 2:39 AM [facility] IMMATURE GRANULOCYTES 0 <1 % 09/04/2025 2:39 AM [facility] NEUTROPHIL ABSOLUTE 4.07 2.00 - 6.90 K/uL 09/04/2025 2:39 AM [facility] LYMPHOCYTE ABSOLUTE 5.71(H) 1.00 - 4.20 K/uL 09/04/2025 2:39 AM [facility] MONOCYTE ABSOLUTE 0.89(H) 0.00 - 0.70 K/uL 09/04/2025 2:39 AM [facility] EOSINOPHIL ABSOLUTE 0.04 0.00 - 0.60 K/uL 09/04/2025 2:39 AM [facility] BASOPHILS ABSOLUTE 0.04 0.00 - 0.20 K/uL 09/04/2025 2:39 AM FACILITIES OPERATOR [facility] IMMATURE GRANULOCYTES ABSOLUTE <0.03 0.00 - 0.03 K/uL 09/04/2025 2:39 AM FACILITIES OPERATOR [facility] Blood Collection / Unknown 09/04/2025 2:05 AM FACILITIES OPERATOR 09/04/2025 2:15 AM FACILITIES OPERATOR Pacheco Cisneros MD HEMATOLOGY ORDERABLES Final Res ult Performing Organization Address [facility] de Phone Number [facility] CLIA #[id number] [address] [place] [address] * (ABNORMAL) PTT (09/04/2025 2:05 AM FACILITIES OPERATOR) PTT 22.0(L) 24.0 - 32.0 seconds 09/04/2025 3:23 AM FACILITIES OPERATOR [facility] Blood Collection / Unknown 09/04/2025 2:05 AM FACILITIES OPERATOR 09/04/2025 2:16 AM FACILITIES OPERATOR Pacheco Cisneros MD HEMATOLOGY ORDERABLES Final Res ult Performing Organization Address [facility] de Phone Number [facility] CLIA #[id number] [address] [place] [address] * PROTIME-INR (09/04/2025 2:05 AM FACILITIES OPERATOR) PROTIME 11.4 9.5 - 12.1 Seconds 09/04/2025 3:23 AM FACILITIES OPERATOR [facility] INR 1.0 0.9 - 1.1 09/04/2025 3:23 AM FACILITIES OPERATOR [facility] Blood Collection / Unknown 09/04/2025 2:05 AM FACILITIES OPERATOR 09/04/2025 2:16 AM FACILITIES OPERATOR Pacheco Cisneros MD HEMATOLOGY ORDERABLES Final Res ult Performing Organization Address City/[facility]/ZIP Co de Phone Number [facility] CLIA #[id number] [address] [place] [address] * (ABNORMAL) COMPREHENSIVE METABOLIC PANEL (09/04/2025 2:05 AM FACILITIES OPERATOR) SODIUM 140 136 - 145 mmol/L 09/04/2025 2:40 AM [facility] POTASSIUM 3.0(LL) 3.5 - 5.1 mmol/L 09/04/2025 2:40 AM [facility] CHLORIDE 107 98 - 107 mmol/L 09/04/2025 2:40 AM [facility] CO2 14(LL) 22 - 29 mmol/L 09/04/2025 2:40 AM [facility] CALCIUM 9.1 8.4 - 10.2 mg/dL 09/04/2025 2:40 AM [facility] BUN 12 7 - 26 mg/dL 09/04/2025 2:40 AM [facility] CREATININE 0.72 0.50 - 1.10 mg/dL 09/04/2025 2:40 AM [facility] GLUCOSE 127(H) 74 - 99 mg/dL 09/04/2025 2:40 AM [facility] TOTAL PROTEIN 7.9 6.4 - 8.3 g/dL 09/04/2025 2:40 AM [facility] ALBUMIN 4.4 3.5 - 5.0 g/dL 09/04/2025 2:40 AM [facility] BILIRUBIN TOTAL 0.5 0.2 - 1.2 mg/dL 09/04/2025 2:40 AM [facility] ALKALINE PHOSPHATASE 64 40 - 150 U/L 09/04/2025 2:40 AM [facility] AST 254(H) 11 - 34 U/L 09/04/2025 2:40 AM [facility] ALT 183(H) <34 U/L 09/04/2025 2:40 AM FACILITIES OPERATOR [facility] GFR >60 >=60 mL/min/1.7 3 sq meter 09/04/2025 2:40 AM [facility] Comment:eGFR calculated with 2020 CKD-EPI equation. Vegetarian diet, extremely high or low muscle mass, and may affect results. Cystatin C with Glomerular Filtration Rate is a suitable alternative for these patients. ANION GAP 19(H) 8 - 16 mmol/L 09/04/2025 2:40 AM FACILITIES OPERATOR [facility] OSMOLALITY, CALCULATED 281 275 - 295 mOsmol/kg H2O 09/04/2025 2:40 AM [facility] Blood Collection / Unknown 09/04/2025 2:05 AM FACILITIES OPERATOR 09/04/2025 2:15 AM FACILITIES OPERATOR Narrative [facility] - 09/04/2025 2:40 AM FACILITIES OPERATOR AST2 reagent used for testing does not contain P5P supplementation and therefore may miss AST elevations in patients with B6 deficiency. This population may be as high as 10% in the [facility], with risk factors including malabsorption, drug interactions, and alcoholic hepatitis. ALT2 reagent used for testing does not contain P5P supplementation and therefore may miss ALT elevations in patients with B6 deficiency. This population may be as high as 10% in the [facility], with risk factors including malabsorption, drug interactions, and alcoholic hepatitis. us Pacheco Cisneros MD CHEMISTRY ORDERABLES Final Resu lt [facility] CLIA #[id number] [address] [place] [id number] * Moderate Sedation (09/04/2025 1:35 AM FACILITIES OPERATOR) Narrative Pacheco Cisneros MD - 09/04/2025 1:35 AM FACILITIES OPERATOR Pacheco Cisneros MD 09/04/2025 10:02 AM Moderate [...] Alternatives discussed: Analgesia without sedation and anxiolysis Nichols protocol: Procedure explained and questions answered to [...] Sedation: Propofol Intra-procedure monitoring: Blood pressure monitoring, library monitor, continuous capnometry, continuous pulse oximetry, frequent [...] Fracture and Fracture Dislocation (09/04/2025 1:35 AM FACILITIES OPERATOR) Narrative Pacheco Cisneros MD - 09/04/2025 1:35 AM FACILITIES OPERATOR Pacheco Cisneros MD 09/04/2025 10:02 AM Fracture and Fracture Dislocation Date/Time: 09/04/2025 1:35 AM Performed by: Pacheco Cisneros MD Authorized by: Pacheco Cisneros MD Consent: Consent obtained: Verbal and written Consent given by: Patient Risks, benefits, and alternatives were discussed: yes Risks discussed: Nerve damage, pain and vascular damage Alternatives discussed: No treatment, delayed treatment, alternative treatment, referral and observation Nichols protocol: Procedure explained and questions answered to [...] and elastic bandage Additional details: Performed by az Post-procedure details: Distal neurologic exam: Unchanged Distal perfusion: distal pulses strong Range of motion: normal Procedure completion: Tolerated well, no immediate complications Pacheco Cisneros MD PROCEDURE/MINOR SURGICAL ORDERA BLES Final Result * Fracture and Fracture Dislocation (09/04/2025 1:35 AM FACILITIES OPERATOR) Narrative Pacheco Cisneros MD - 09/04/2025 1:35 AM FACILITIES OPERATOR Pacheco Cisneros MD 09/04/2025 10:02 AM Fracture and Fracture Dislocation Date/Time: 09/04/2025 1:35 AM Performed by: Pacheco Cisneros MD Authorized by: Pacheco Cisneros MD Consent: Consent obtained: Verbal and written Consent given by: Patient Risks, benefits, and alternatives were discussed: yes Risks discussed: Nerve damage, pain and vascular damage Alternatives discussed: No treatment, delayed treatment, alternative treatment, referral and observation Nichols protocol: Procedure explained and questions answered to [...] completion: Tolerated well, no immediate complications Result [facility] Pacheco Cisneros MD PROCEDURE/MINOR SURGICAL ORDERA BLES Final Result * Critical Care (09/04/2025 1:35 AM FACILITIES OPERATOR) Narrative Pacheco Cisneros MD - 09/04/2025 1:35 AM FACILITIES OPERATOR Pacheco Cisneros MD 09/04/2025 10:02 AM Critical [...] Last 3 Months Insurance RX [facility] [employer] [facility] [place]KE GALAVIZ [id number] Advance Directives For more information, please contact: [phone] * Full Code (Latest Code Status on File) Date Activated Date Inactivated Comments 02/02/2020 7:49 AM 02/04/2020 6:32 PM Care Teams Triple Air Valve Tester Relationship Specialty Start Date End Date Dedra Jo MD [address] [place] [address] PCP - General Family Practice 09/04/25
--- OUTSIDE RECORDS SUMMARY | 2025-09-05 08:53 | XMS_ITS | Encounter Summary ---
Author Organization [facility] Address [address] [place] [address] Care Team Providers Care General Machinist Name Role Phone Dedra Jo MD Primary Care Provider [phone] Encounter Details Date Type Department Care Team (Latest Contact Info) Description 06/18/2010 Outpatient Historical [facility] [address] [place] [address] Lakisha Carrasco DO NO ADDRESS ON FILE Fever, unspecified (Primary Dx) Social History Tobacco Use Types Packs/Day Years Used Date Smoking Tobacco: Never Assessed Comments Unknown Sex and Gender Information Value Date Recorded Sex Assigned at Not on file Legal Sex Female 7:03 AM COBBLER APPRENTICE Gender Identity Not on file Sexual Orientation Not on file documented as of this encounter Plan of Treatment Not on file documented as of this encounter Visit Diagnoses Diagnosis Fever, unspecified- Primary documented in this encounter Care Teams General Machinist Relationship Specialty Start Date End Date Dedra Jo MD [facility] [place] [address] PCP - General Family Practice 09/04/25 documented as of this encounter
--- OUTSIDE RECORDS SUMMARY | 2025-09-05 08:53 | XMS_ITS | Encounter Summary ---
Author Organization [facility] Address [address] [place] [address] Care Team Providers Care Nitroglycerin Separator Operator Name Role Phone Dedra Jo MD Primary Care Provider [phone] Encounter Details Date Type Department Care Team (Late st Contact Info) Description 07/09/2010 Emergency [facility] [address] [place] [address] [place] [address] Unspecified otitis media (Primary Dx) Social History Tobacco Use Types Packs/Day Years Used Date Smoking Tobacco: Never Assessed Comments Unknown Sex and Gender Information Value Date Recorded Sex Assigned at Not on file Legal Sex Female 7:03 AM WARP DOFFER Gender Identity Not on file Sexual Orientation Not on file documented as of this encounter Plan of Treatment Not on file documented as of this encounter Visit Diagnoses Diagnosis Unspecified otitis media- Primary documented in this encounter Care Teams Nitroglycerin Separator Operator Relationship Specialty Start Date End Date Dedra Jo MD [address] [place] [phone] PCP - General Family Practice 09/04/25 documented as of this encounter
--- OUTSIDE RECORDS SUMMARY | 2025-09-05 08:53 | XMS_ITS | Encounter Summary ---
Author Organization [facility] Address [address] [place] [address] Care Team Providers Care Switchboard Troubleshooter Name Role Phone Dedra Jo MD Primary Care Provider [phone] Encounter Details Date Type Department Care Team (Late st Contact Info) Description 09/01/2009 Emergency [facility] [address] [place] [address] Miladys Pan MD [address] [address] Nuris Arriaga, [address] [address] Encounter for Removal of Sutures (Primary Dx) Social History Tobacco Use Types Packs/Day Years Used Date Smoking Tobacco: Never Assessed Comments Unknown Sex and Gender Information Value Date Recorded Sex Assigned at Not on file Legal Sex Female 7:03 AM LEGAL BILLER Gender Identity Not on file Sexual Orientation Not on file documented as of this encounter Plan of Treatment Not on file documented as of this encounter Visit Diagnoses Diagnosis Encounter for removal of sutures- Primary documented in this encounter Care Teams Switchboard Troubleshooter Relationship Specialty Start Date End Date Dedra Jo MD [address] [place] [phone] PCP - General Family Practice 09/04/25 documented as of this encounter
--- OUTSIDE RECORDS SUMMARY | 2025-09-05 08:53 | XMS_ITS | Encounter Summary ---
Author Organization [facility] Address [address] [place] [address] Care Team Providers Care Work Order Detailer Name Role Phone Dedra Jo MD Primary Care Provider [phone] Encounter Details Date Type Department Care Team (Latest Contact Info) Description 06/18/2010 Outpatient Historical [facility] [address] [place] [address] Lakisha Carrasco DO NO ADDRESS ON FILE Fever, unspecified (Primary Dx); Cough Social History Tobacco Use Types Packs/Day Years Used Date Smoking Tobacco: Never Assessed Comments Unknown Sex and Gender Information Value Date Recorded Sex Assigned at Not on file Legal Sex Female 7:03 AM DECORATOR LIGHTING FIXTURES Gender Identity Not on file Sexual Orientation Not on file documented as of this encounter Plan of Treatment Not on file documented as of this encounter Visit Diagnoses Diagnosis Fever, unspecified- Primary Cough documented in this encounter Care Teams Work Order Detailer Relationship Specialty Start Date End Date Dedra Jo MD [facility] [place] [address] PCP - General Family Practice 09/04/25 documented as of this encounter
--- OUTSIDE RECORDS SUMMARY | 2025-09-05 08:53 | XMS_ITS | Encounter Summary ---
Author Organization [facility] Address [address] [facility] Attn: Epic Prelude ADT [place] [address] Care Team Providers Care Bronze Plater Name Role Phone Dedra Jo MD Primary Care Provider [phone] Encounter Details Date Type Department Care Team [...] worry about transportation for future doctor visits, orange picking supervisor medication, etc.? No 2024 Housing Stability Answer [...] on file Legal Sex Female 7:03 AM REPORT SPECIALIST Gender Identity Not on file Sexual Orientation Not on file documented as of this encounter Plan of Treatment Not on file documented as of this encounter Visit Diagnoses Not on filedocumented in this encounter Care Teams Bronze Plater Relationship Specialty Start Date End Date Dedra Jo MD [address] [place] [phone] PCP - General Family Practice 09/04/25 documented as of this encounter
[2025-09-05] MEDS: acetaminophen 1,000 MG/100 ML PIGGYBACK 400 MG IV (15:43)
--- NOTE | 2025-09-05 16:19 | PM.CONSULT ---
Providers/Reason For Consult Consulting Physician/Specialty*: Iraj Sheehan, /orthopedic surgery Reason for Consult*: Bilateral distal radius fractures Requesting Physician: Dr. Prater?emergency department Attending Physician: Mona Goodman, LEAD JAVA DEVELOPER ARCHITECT, LEGAL EXECUTIVE History of Present Illness History of Present Illness Светлана Patel is a 20 year old female is a student at [employer]. Patient was in the [facility] area staying in a hotel and decided to climb on construction site next door and the building collapsed and she fell 15 feet and sustained bilateral wrist fractures was seen in an outside facility closer to the injury was placed in splints and for outpatient follow-up had persistent pain brought back to the emergency department here which is closer to home by family and they subsequent brought her into emergency department overnight. Hospitalist admitted patient as primary and orthopedics consulted for bilateral distal radius fractures. Patient denies any pain elsewhere only complains of pain in her wrist that she did have a workup in the emergency department with a chest abdomen pelvis and there was no acute findings in the abdomen or pelvis. Patient currently in sugar-tong splints. Review of Systems General: Reports: 10 or more systems reviewed and unremarkable except in HPI and below Medications/Allergies Home Medications ?Medication ?Instructions ?Recorded ?Confirmed ?Last Taken ?Type hydrocodone 10 mg-acetaminophen 1 tab PO Q4H PRN Pain 09/05/25 09/05/25 09/04/25 16:00 History 325 mg tablet hydroxyzine pamoate 25 mg capsule 25 mg PO Q6H PRN Anxiety 09/05/25 09/05/25 Unknown History Allergies Allergy/AdvReac Type Severity Reaction Status Date / Time Alpha-Gal Allergy ALGY-Anaphy Verified 09/04/25 19:24 (Ocubqhamn-Iwgwl-1,3-Gala laxis doxycycline Allergy ADR-Gastrointestinal Verified 09/04/25 19:24 Upset gluten Allergy Unknown Verified 09/05/25 01:17 Current Medications Generic Name Dose Route Start Last Admin Trade Name Freq PRN Reason Stop Dose Admin Potassium Chloride/Sodium Chloride 20 meq in 1,000 mls @ 100 mls/hr 09/05/25 00:45 09/05/25 11:05 Sodium Chlor 0.9% + Kcl 20 Meq IV 100 mls/hr On Hold: 09/05/25 15:06 .Q10H NATHANAEL Administration Comment: Order held by Process Transfer Ketorolac Tromethamine 15 mg 12/22/25 00:52 09/05/25 13:55 Ketorolac 30 Mg/Ml Inj IVP 09/10/25 00:51 15 mg On Hold: 09/05/25 15:06 Q6H PRN Administration Comment: Order held by Process MODERATE PAIN Transfer Morphine Sulfate 4 mg 09/05/25 00:57 09/05/25 10:16 Morphine 4 Mg/Ml Sdv 1 Ml IVP 4 mg On Hold: 09/05/25 15:06 Q4H PRN Administration Comment: Order held by Process SEVERE PAIN Transfer Ondansetron HCl 4 mg 09/05/25 08:09 09/05/25 08:17 Ondansetron 2 Mg/Ml Sdv 2 Ml IVP 4 mg On Hold: 09/05/25 15:06 Q4H PRN Administration Comment: Order held by Process NAUSEA AND VOMITING Transfer Oxycodone HCl 5 mg 09/05/25 00:52 09/05/25 01:23 Oxycodone 5 Mg Ir Tab/Cap PO 5 mg On Hold: 09/05/25 15:06 Q6H PRN Administration Comment: Order held by Process SEVERE PAIN Transfer PFSH Acute PFSH: Social History Smoking and tobacco/nicotine status: never used tobacco/nicotine Vitals/I&O/Wt Last Vital Signs Temp 98.9 F 09/05/25 15:06 Pulse 81 09/05/25 15:06 Resp 18 09/05/25 15:06 BP 128/70 09/05/25 15:06 Pulse Ox 97 09/05/25 15:06 O2 Del Method Room Air 09/05/25 15:06 O2 Flow Rate 2 09/04/25 23:45 09/05/25 09/05/25 09/05/25 06:59 14:59 22:59 Intake Total 1000 / 1000 970 / 970 Balance 1000 / 1000 970 / 970 Weight last 48 hrs Weight 135 lb 1.6 oz Weight 135 lb 6.4 oz Weight 120 lb Physical Exam Narrative: Orthopedic examination: Examination of the bilateral upper extremities: Examination bilateral upper extremities demonstrates patient has sugar-tong splint on in place subsequently taken down patient has swelling noted about the distal radius and tenderness palpation at the distal radius fractures that she is able to wiggle her fingers her compartments to the forearms and wrist/hands are soft compressible. She is unable to tolerate passive range of motion with no pain out of proportion. Sensations intact to light touch to the radial/ulnar/median nerve distribution bilaterally. She is able to perform all cardinal hand movements of AIN/PIN/radial/ulnar/median nerve intact. Distal pulses are palpable hand warm well-perfused brisk capillary refill less than 2 seconds Cotton dressing left on in place due to the comfort of the patient not wanting to move her wrist around Secondary survey examination unremarkable patient has no tenderness palpation of bilateral lower extremities at the bilateral lower extremity joints negative logroll examination bilaterally able to wiggle toes plantarflex and dorsiflex ankles bilaterally. Examination of the bilateral shoulders and elbows are unremarkable for no tenderness palpation and no deformities noted. Patient denies any tenderness to palpation pelvic compression test. Data 09/04/25 21:25 09/04/25 21:25 Xray Ortho: Radiologist's impression: Patient: Светлана Patel Unit #: [id number] : 2005 Age/Sex: 20 / F ADM Date: 09/04/25 Loc: ER Room/Bed: Attending: Ordering Provider/Ordering MD: Kehinde Prater DO Date of Service: 09/04/25 Procedure(s): XR wrist LT min 3V* [id number] Accession Number(s): [id number] Report Number: [id number] PROCEDURE INFORMATION: Exam: XR Left Wrist Exam date and time: 09/04/2025 8:45 PM Age: 20 years old Clinical indication: Injury or trauma; Blunt trauma (contusions or hematomas); Left; Injury details: Patient sustained a 15 foot fall in the very early a. M. Hours today and [place] an [place] of state. Bilateral wrist fractures. Both arms in casts for XR. ; Additional info: Fall 15 ft, fractures and reduced at osh but no records TECHNIQUE: Imaging protocol: Radiologic exam of the left wrist. Views: 3 or more views. COMPARISON: No relevant prior studies available. FINDINGS: Limitations: Examination is made through a semi opaque splint which obscures fine bone detail. Bones/joints: There is impacted fracture of the distal left radius with some mild dorsal displacement and dorsal angulation of the distal radius. There is also what appears to be displaced ulnar styloid fracture. Soft tissues: Soft tissues are obscured by the splint. XR/XR wrist LT min 3V* [id number] IMPRESSION: Fracture of the distal left radius and ulnar styloid in splint. Patient: Светлана Patel Unit #: [id number] : 2005 Age/Sex: 20 / F ADM Date: 09/04/25 Loc: ER Room/Bed: Attending: Ordering Provider/Ordering MD: Kehinde Prater DO Date of Service: 09/04/25 Procedure(s): XR wrist RT min 3V* [id number] Accession Number(s): [id number] Report Number: [id number] PROCEDURE INFORMATION: Exam: XR Right Wrist Exam date and time: 09/04/2025 10:14 PM Age: 20 years old Clinical indication: Injury or trauma; Blunt trauma (contusions or hematomas); Right; Injury details: Patient sustained a 15 foot fall in the very early a. M. Hours today and was evaluated at an er out of state. Bilateral wrist fractures. Both arms in casts for XR. ; Additional info: Fall 15 ft, fractures and reduced at osh but no records TECHNIQUE: Imaging protocol: Radiologic exam of the right wrist. Views: 3 or more views. COMPARISON: No relevant prior studies available. FINDINGS: Limitations: Examination is made through a semi opaque splint which obscures fine bone detail. Bones/joints: There is impacted fracture of the distal right radius with mild dorsal tilt of the distal articular surface. Soft tissues: Soft tissues are obscured by the splint. XR/XR wrist RT min 3V* [id number] IMPRESSION: Impacted fracture distal right radius. Patient: Светлана Patel Unit #: [id number] : 2005 Age/Sex: 20 / F ADM Date: 09/04/25 Loc: ER Room/Bed: Attending: Ordering Provider/Ordering MD: Kehinde Prater DO Date of Service: 09/04/25 Procedure(s): XR elbow LT min 3V* [id number] Accession Number(s): [id number] Report Number: [id number] PROCEDURE INFORMATION: Exam: XR Left Elbow Exam date and time: 09/04/2025 8:50 PM Age: 20 years old Clinical indication: Injury or trauma; Blunt trauma (contusions or hematomas); Elbow; Left; Injury details: Patient sustained a 15 foot fall in the very early a. M. Hours today and was evaluated at an er out of state. Bilateral wrist fractures. Both arms in casts for XR. ; Additional info: Fall 15 ft, fractures and reduced at osh but no records TECHNIQUE: Imaging protocol: Radiologic exam of the left elbow. Views: 3 or more views. COMPARISON: CR XR wrist LT min 3V* [id number] 09/04/2025 8:45 PM FINDINGS: Limitations: Examination is made through a semi opaque splint which obscures fine bone detail. Bones/joints: Lateral and oblique views of the left elbow do not show evidence of fracture or dislocation. The elbow is in a 90 degree position held by the splint or cast. Soft tissues: Soft tissues are obscured by the splint. XR/XR elbow LT min 3V* [id number] IMPRESSION: Limited exam. No evidence of fracture or dislocation. Patient: Светлана Patel Unit #: [id number] : 2005 Age/Sex: 20 / F ADM Date: 09/04/25 Loc: ER Room/Bed: Attending: Ordering Provider/Ordering MD: Kehinde Prater DO Date of Service: 09/04/25 Procedure(s): XR elbow RT min 3V* [id number] Accession Number(s): [id number] Report Number: [id number] PROCEDURE INFORMATION: Exam: XR Right Elbow Exam date and time: 09/04/2025 10:19 PM Age: 20 years old Clinical indication: Injury or trauma; Blunt trauma (contusions or hematomas); Elbow; Right; Injury details: Patient sustained a 15 foot fall in the very early a. M. Hours today and was evaluated at an er out of state. Bilateral wrist fractures. Both arms in casts for XR. ; Additional info: Fall 15 ft, fractures and reduced at osh but no records TECHNIQUE: Imaging protocol: Radiologic exam of the right elbow. Views: 3 or more views. COMPARISON: CR (UP EXM, ) 09/04/2025 10:14 PM FINDINGS: Limitations: Examination is made through a semi opaque splint which obscures fine bone detail. Bones/joints: Limited views are obtained and lateral and oblique projections. No fracture or dislocation of the elbow is identified. Elbow is held in a 90 degree fixed position by the splint. Soft tissues: Soft tissues are obscured by the splint. XR/XR elbow RT min 3V* [id number] IMPRESSION: Limited exam. No fracture is identified. A&P Assessment and plan 1. Wrist fracture, bilateral: Plan: Bilateral distal radius fractures Bilateral sugar-tong splints on in place Imaging reviewed Labs reviewed Hospitalist admitted patient Orthopedics consulted Plan for bilateral distal radius open reduction internal fixation later today. N.p.o. since midnight Nonweightbearing bilateral upper extremities Pain control Elevation and ice MDM: Patient is a pleasant 20-year-old female who is accompanied by her grandparents today who did help assist with a history physical as well as discussion of the plan. At this point in time given patient's young age polytrauma and displacement of bilateral distal radius fractures we talked about her options in detail the recommendation at this point time would be for surgical intervention for bilateral distal radius ORIF. This will help 1 with pain control to with goals of hopefully early mobilization as well as to read correction of deformity. We talked about options in detail as far as nonoperative operative invention we talked about the ins and outs procedure the risk benefits complication alternatives surgical nonsurgical treatment options. Risk of surgery include but not limited to make it better, make it worse, injury to nerves vessels or tendons, painful hardware later, early arthritis, infection. Understanding risk of surgery patient and grandparents elect to proceed with surgical intervention. All questions been answered at this time. Will go to the OR today for bilateral distal radius ORIF. Plan would be to observe overnight and goals of likely discharge tomorrow. They understand agree with current plan. All questions answered. PDMP PDMP Reviewed: Not Reviewed Coding Level of Care Code Acute Code for [facility] Fwd Diagnoses Wrist fracture, bilateral S62.101A; S62.102A Time Spent (min) 45
--- NOTE | 2025-09-05 16:20 | W.PM.OPSUD ---
Surgery/Procedure H&P Update DATE OF PROCEDURE: September 05, 2025 DATE H&P PERFORMED: 09/05/25 H&P UPDATE INFORMATION: I have reviewed H&P completed within last 30 days, I have examined patient prior to procedure and No changes to prior documentation PREOP DIAGNOSIS: Bilateral distal radius fractures PRIMARY INDICATION FOR PROCEDURE: Bilateral distal radius fractures displaced and angulated PLANNED PROCEDURE: Operation Date: 09/05/25 14:25 Proposed Procedures p ORIF Distal Radius(Bilateral) - Iraj Sheehan DO
--- NOTE | 2025-09-05 17:00 | P.ANESASSM_ITS ---
Pre-Anesthetic Assessment Height/Weight: Height 5 ft Weight 135 lb 1.6 oz Temp Pulse Resp BP Pulse Ox O2 Del Method O2 Flow Rate 98.9 F 81 18 128/70 97 Room Air 2 09/05/25 15:06 09/05/25 15:06 09/05/25 15:06 09/05/25 15:06 09/05/25 15:06 09/05/25 15:06 09/04/25 23:45 Preop Diagnosis: Bilateral distal radius fractures Operation Date: 09/05/25 14:25 Proposed Procedures p ORIF Distal Radius(Bilateral) - Iraj [place], DO Was Beta Jace taken within 24 hours: N/A Was Clonidine taken within 24 hours: N/A Last intake: Intake Last Liquid Date 09/05/25 Last Liquid Time 00:00 Last Solid Date 09/05/25 Last Solid Time 00:00 Social No alcohol and No tobacco Exam alert, oriented x 3, clear to auscultation bilaterally and regular rate & rhythm Airway Submandibular: within normal limits Cervical ROM: within normal limits Mallampati: Class II Dentition: full Anesthetic Plan ASA status: 1 Anesthesia: General and Regional (specify below) Other: No prior anesthesia history NPO since yesterday evening Patient has an allergy to alpha gal, anesthesia team aware Denies any cardiac or pulmonary issues Mild hyponatremia noted on labs from yesterday, NA 134 METs greater than 4 Extensive conversation had with patient and family about peripheral nerve block. Decision was made to do a supraclavicular nerve block on the left with plans of local anesthetic via surgeon on the right. I will inject 20 cc of half percent ropivacaine leaving surgeon 10 cc of half percent available to inject on right side Plan for general anesthesia with peripheral nerve block Medications/Allergies Home Medications ?Medication ?Instructions ?Recorded ?Confirmed ?Last Taken ?Type hydrocodone 10 mg-acetaminophen 1 tab PO Q4H PRN Pain 09/05/25 09/05/25 09/04/25 16:00 History 325 mg tablet hydroxyzine pamoate 25 mg capsule 25 mg PO Q6H PRN Anx iety 09/05/25 09/05/25 Unknown History Allergies Allergy/AdvReac Type Severity Reaction Status Date / Time Alpha-Gal Allergy ALGY-Anaphy Verified 09/04/25 19:24 (Qehsukxjc-Srlgy-1,3-Gala laxis doxycycline Allergy ADR-Gastrointestinal Verified 09/04/25 19:24 Upset gluten Allergy Unknown Verified 09/05/25 01:17 Current Medications Generic Name Dose Route Start Last Admin Trade Name Freq PRN Reason Stop Dose Admin Potassium Chloride/Sodium Chloride 20 meq in 1,000 mls @ 100 mls/hr 09/05/25 00:45 09/05/25 11:05 Sodium Chlor 0.9% + Kcl 20 Meq IV 100 mls/hr On Hold: 09/05/25 15:06 .Q10H NATHANAEL Administration Comment: Order held by Process Transfer Ketorolac Tromethamine 15 mg 09/05/25 00:52 09/05/25 13:55 Ketorolac 30 Mg/Ml Inj IVP 09/10/25 00:51 15 mg On Hold: 09/05/25 15:06 Q6H PRN Administration Comment: Order held by Process MODERATE PAIN Transfer Morphine Sulfate 4 mg 09/05/25 00:57 09/05/25 10:16 Morphine 4 Mg/Ml Sdv 1 Ml IVP 4 mg On Hold: 09/05/25 15:06 Q4H PRN Administration Comment: Order held by Process SEVERE PAIN Transfer Ondansetron HCl 4 mg 09/05/25 08:09 09/05/25 08:17 Ondansetron 2 Mg/Ml Sdv 2 Ml IVP 4 mg On Hold: 09/05/25 15:06 Q4H PRN Administration Comment: Order held by Process NAUSEA AND VOMITING Transfer Oxycodone HCl 5 mg 09/05/25 00:52 09/05/25 01:23 Oxycodone 5 Mg Ir Tab/Cap PO 5 mg On Hold: 09/05/25 15:06 Q6H PRN Administration Comment: Order held by Process SEVERE PAIN Transfer [facility] Anesthesia Social History Smoking and tobacco/nicotine status: never used tobacco/nicotine Data Anesthesia 09/04/25 21:25 09/04/25 21:25 Short CBC 09/04/25 Range/Units 21:25 WBC 9.65 (4.5-13.0) 10^3/uL Hgb 12.80 (12.4-14.8) g/dL Hct 37.0 (36-47) % MCV 89.2 (85-98) fl Plt Count 381 (157-399) 10^3/cmm Neut % (Auto) 61.0 % Neut # (Auto) 5.89 (1.8-8.0) 10^3/uL BMP 09/04/25 21:25 Sodium 134 L Potassium 3.8 Chloride 98 Carbon Dioxide 19 L BUN 10 Creatinine 0.7 Glucose 90 Calcium 9.6 Liver Function 09/04/25 Range/Units 21:25 Total Bilirubin 1.0 (0.15-1.2) mg/dL AST 104 H (0-32) U/L ALT 119 H (0-33) U/L Alkaline Phosphatase 80 (35-105) U/L Albumin 4.8 (3.5-5.2) g/dL
--- NOTE | 2025-09-05 17:02 | ANES.PROC ---
Anesthesia Procedures Procedure/Date: 09/05/25 Left supra clavicular nerve block for postoperative pain control Nerve Block ^: Nerve Block 1: Main Anesthesia: other (100 mcg fentanyl and 2 mg Versed) Time Out Performed: Yes Consent: requested by attending/covering physician and from patient Laterality: Left Nerve block location: supraclavicular Anesthesia monitors applied: pulse oximetry, EKG, BP cuff and oxygen Nerve block position: supine Anesthetic Used: ropivicaine 0.5% Amount of anesthesia used (mL): 20 Ultrasound used to: recognize landmarks Nerve Stimulator Used?: Yes Interscalene/Femoral BLK: other needle (pjunk 4inch) Injection: neg aspiration of heme Patient Tolerated Procedure: well Complications: none Additional Comments: Decadron 4 mg added to block
[2025-09-05] MEDS: ceFAZolin 2,000 mg SDV 2000 MG IVP (18:35)
--- NOTE | 2025-09-05 19:00 | P.PN_ITS ---
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 The patient was in the [facility] area staying in a hotel and decided to climb on construction site next door and the building collapsed and she fell 15 feet and sustained abdominal injury and bilateral fractured wrists. She was observed from 2 AM in the emergency department and then briefly in the hospital from 7 AM to 2 PM and discharged from [facility]. They did not have follow-up for wrist fracture other than following up at [facility] and so elected to go to another ER. Dr. Prater discussed case with Dr. Sheehan who requests hospitalist assistance with admission and has scheduled surgery for the morning. Patient states her abdominal pain is still present but improved from this morning. Dr. Prater repeated chest abdomen pelvis CT scan no acute findings. Patient has history of celiac disease and alpha gal. She also has some anxiety that she takes hydroxyzine but is on no other medications. No allergies. She does have GI upset with doxycycline. Patient also has an IUD. Progress Note: Patient left for pre-op at approximately 1500. Surgery started at approximately 1845. Vitals/I&O/Wt Last Vital Signs Temp 98.9 F 09/05/25 15:06 Pulse 81 09/05/25 15:06 Resp 18 09/05/25 15:06 BP 128/70 09/05/25 15:06 Pulse Ox 97 09/05/25 15:06 O2 Del Method Room Air 09/05/25 15:06 O2 Flow Rate 2 09/04/25 23:45 09/05/25 09/05/25 09/05/25 06:59 14:59 22:59 Intake Total 1000 / 1000 970 / 970 100 / 1070 Balance 1000 / 1000 970 / 970 100 / 1070 Weight last 48 hrs Weight 61.28 kg Weight 61.416 kg Weight 54.431 kg Data 09/04/25 21:25 09/04/25 21:25 A&P PDMP PDMP Reviewed: Not Reviewed Attestations 2 Medical Necessity Statement*: Patient not expected to stay two midnights. Coding Level of Care Code Acute Code for Chg Fwdiane
[2025-09-05] MEDS: BUPivacaine 0.5% INJ 10 mL INJECTION (19:56)
[2025-09-05] MEDS: fentaNYL 50 mcg/mL INJ 2mL IVP ×2 (20:56→21:01)
--- NOTE | 2025-09-05 20:56 | P.BOP_ITS ---
Date of Procedure: 09/05/2025 Surgeon: Iraj Sheehan DO General Maintenance Mechanic(s): None Procedure(s) performed: Right distal radius open reduction internal fixation (3-part intra-articular) Left distal radius open reduction internal fixation (4 part intra-articular) Findings of the procedure(s): Patient underwent procedure as planned without issues or complications taken to recovery in stable condition, bilateral splints on in place, will return to floor postoperatively Estimated blood loss: 30 mL Specimen(s) removed: None Post-operative diagnosis: Bilateral distal radius fractures
--- NOTE | 2025-09-05 20:58 | P.OP_ITS ---
Operative Report Date of procedure: September 05, 2025 Surgeon: Iraj Sheehan DO Procedure: Preop Diagnosis ? Bilateral?distal?radius?fracture ? Procedure: Post-op diagnosis: Same, 3 part intra-articular right distal radius fracture, four-part intra- articular left distal radius fracture Procedure done: Right distal radius open reduction internal fixation (3-part intra-articular) Left distal radius open reduction internal fixation (4 part intra-articular) Implants: ?Arthrex left 3-hole narrow volar locking plate Combination of locking and nonlocking screws 2.7 mm?distal Combination of locking and nonlocking screws 3.5 mm proximal Arthrex right 3-hole narrow volar locking plate Combination of locking and nonlocking screws 2.7 mm distal Combination of locking nonlocking screws 3.5 mm proximal Surgeon: Iraj Sheehan DO Anesthesia: General and nerve Block (Regional)-left side only Estimated blood loss: 30 mL (15 mL each side) Tourniquet time: 30mins right 34mins left IV fluids: 1300mL Complications: None Findings: See operative report narrative Condition: stable Disposition: same day Brief History: Patient is a 20-year-old female who presented through the emergency department for bilateral intra-articular distal radius fractures. She is young of age was seen at an outside facility and splinted for outpatient follow-up she had worsening pain and given her young age she was admitted overnight by hospitalist and orthopedics was consulted for treatment at this point time given intra- articular displaced and her young age and a bilateral would recommend surgical intervention for bilateral distal radius ORIF's. We talked about this in detail with patient and family and through shared decision making elected proceed with surgical intervention. All questions have been answered at this time. They understand the ins and outs procedure the risk benefits complication alternatives surgery and nonsurgical treatment options. Understanding risk of surgery they elect to proceed all questions at this time. Will have anesthesia do a block on just the left side and then localized the right. All questions answered we will return patient to the floor tonight with plan for hopeful discharge tomorrow. Understanding risk for surgery patient elects to proceed with surgical intervention.? All questions been answered at this time. Procedure: Patient seen and evaluated in the preoperative holding area.? Consent reviewed and signed with patient.? Correct extremities were marked and consent was review ed and signed.? Patient was seen and evaluated by anesthesia department.? Underwent regional anesthesia for the left upper extremity. Once cleared for surgery pt was taken back to the operative suite.? Patient was then transported into the operative suite and kept on the OR gurney, all bony prominences well- padded patient was appropriate secured to bed in supine position.? Plan was to start with the right upper extremity. And then after that is complete proceed with the left side. An armboard was applied to the right upper extremity.? The right upper extremity had a nonsterile tourniquet applied.? Patient subsequently was then prepped and draped in standard orthopedic fashion she underwent anesthesia per the anesthesia department.? A final timeout was performed.? Patient received appr opriate preoperative antibiotics. Esmarch was used exsanguinate the right upper extremity and tourniquet was insufflated to 250 mmHg. A standard modified FCR volar approach was performed to the rig t?distal?radius.? Sharp scalpel incision through skin and subcutaneous tissue.? I then switched to Littler dissection scissors identify the FCR tendon releases out of the sheath both proximally and?distally mobilized the tendon ulnarly and then subsequently incised the floor of the FCR tendon sheath with care to just incise the floor.? I then bluntly sweep the FPL tendon muscle belly ulnarly and placed blunt self-retaining retractor.? At this point time I direct visualization of the pronator quadratus which was incised in standard L fashion off the radial and?distal?border in the?distal?radius?and fracture site was scraped clean of interposed muscle belly.? I then identified the 3 part intra- articular?distal?radius?fracture.? This was subsequently opened above and freed of interposing muscle belly as well as periosteum and fracture hematoma.? I did have to utilize my [place] which was placed through the fracture pattern and disengage the fracture and performed manual manipulation and anatomic reduction of the?distal?radius?fracture.? ?Once satisfied with reduction and had appropriate anatomic reduction of the volar cortex.? This was confirmed with mini C arm in multiple orthogonal i maging.? At this point time? I selected a Arthrex anatomic right?distal?radius?plate utilizing a narrow 3-hole plate which would have appropriate spread?distally.? This was then placed up to the?distal?radius?while maintaining my reduction, pins were placed?distally and proximally to confirm appropriate placement of the plate along the?distal?radius.? Minor adjustments were made and once I was satisfied I then subsequently drilled a bicortical 3.5 screw proximally in the oblong hole to allow for appropriate sliding of the?distal?radius?plate appropriately to perfect position on the?distal?radius.? This had excellent fixation and purchase and brought the plate to bone.? While maintaining my reduction I then confirmed in multiple orthogonal imaging that my plate was in appropriate position.? Once satisfied with my position I then subsequently placed the peek targeting guide on the?distal?locking screws with Arthrex.? The locking guide was then subsequently loaded and I subsequently drilled and placed a fully threaded cortical screw to compress the plate to bone for the?distal?fracture fragment.? This was performed with plan to then remove this and placed a shorter locking screw had bicortical fixation with excellent purchase and appropriate reduction of my volar tilt and bringing plate to bone of the?distal?fragment and plate.? Once I was satisfied with my plate position as well as reduction of the?distal?radius?which was confirmed on AP oblique and lateral imaging I then subsequently drilled measured and placed 3 locking screws around this cortical screw.? Then I subsequently removed the cortical screw and placed a shorter locking screw that did not penetrate the dorsal cortex.?? This completed my?distal?fixation.? I did utilize mini C arm to confirm appropriate placement of the screws these were all within the?distal?radius?and no joint involvement within the radiocarpal joint or the DRUJ.? These had appropriate subchondral support and maintenance of reduction and fixation of the?distal?radius?fracture.? ?I then turned my attention proximally and then I screwed in the locking guides for my final to screws proximally these were then subsequently drilled measured and appropriate length locking screws were then placed proximally with excellent fixation and locking technology into the plate.? This completed my construct.? The peek guide was subsequently removed and final imaging of the right?distal?radius?open reduction internal fixation was taken of AP lateral as well and is orthogonal imaging.? I then took a inclination view which showed my radial styloid screw was out of the penetration of the joint.? All my?distal?screws were appropriate length did not penetrate dorsal cortex and did not penetrate the joint.? This completed my fixation.? Smooth wrist range of motion was then noted with no evidence of clicking. Wrist was then taken through pronation supination and stressed the DRUJ which was found to be stable.? The wound was then thoroughly irrigated.? Tourniquet was then subsequently deflated.? Hemostasis satisfactory with bipolar electrocautery.? I then subsequently placed interrupted 3-0 Vicryl sutures for subcutaneous tissue and then subsequently placed a nylon the skin for closure.? Incision was then dressed with Xeroform 4 x 4's Kerlix cast padding and a volar Ortho-Glass splint was then applied with Khai wrap and placed in a sling.? After the right side dressings were applied the drapes were all broke down the patient was then repositioned and we proceeded with the left side. An armboard was applied to the left upper extremity.? The left upper extremity had a nonsterile tourniquet applied.? Patient subsequently was then prepped and draped in standard orthopedic fashion she underwent anesthesia per the anesthesia department.? A final timeout was performed.? Patient received appropriate preoperative antibiotics. Esmarch was used exsanguinate the left upper extremity and tourniquet was insufflated to 250 mmHg. A standard modified FCR volar approach was performed to the left?distal?radius.? Sharp scalpel incision through skin and subcutaneous tissue.? I then switched to Littler dissection scissors identify the FCR tendon releases out of the sheath both proximally and?distally mobilized the tendon ulnarly and then subsequently incised the floor of the FCR tendon sheath with care to just incise the floor.? I then bluntly sweep the FPL tendon muscle belly ulnarly and placed blunt self- retaining retractor.? At this point time I direct visualization of the pronator quadratus which was incised in standard L fashion off the radial and?distal?border in the?distal?radius?and fracture site was scraped clean of interposed muscle belly.? I then identified the 4 part intra-articular?distal?radius?fracture.? This was subsequently opened above and freed of interposing muscle belly as well as periosteum and fracture hematoma.? I did have to utilize my [place] which was placed through the fracture pattern and disengage the fracture and performed manual manipulation and anatomic reduction of the?distal?radius?fracture.? ?Once satisfied with reduction and had appropriate anatomic reduction of the volar cortex.? This was confirmed with mini C arm in multiple orthogonal imaging.? At this point time? I selected a Arthrex anatomic left?distal?radius?plate utilizing a narrow 3-hole plate which would have ap propriate spread?distally.? This was then placed up to the?distal?radius?while maintaining my reduction, pins were placed?distally and proximally to confirm appropriate placement of the plate along the?distal?radius.? Minor adjustments were made and once I was satisfied I then subsequently drilled a bicortical 3.5 screw proximally in the oblong hole to allow for appropriate sliding of the?distal?radius?plate appropriately to perfect position on the?distal?radius.? This had excellent fixation and purchase and brought the plate to bone.? While maintaining my reduction I then confirmed in multiple orthogonal imaging that my plate was in appropriate position.? Once satisfied with my position I then subsequently placed the peek targeting guide on the?distal?locking screws with Arthrex.? The locking guide was then subsequently loaded and I subsequently drilled and placed a fully threaded cortical screw to compress the plate to bone for the?distal?fracture fragment.? This was performed with plan to then remove this and placed a shorter locking screw had bicortical fixation with excellent purchase and appropriate reduction of my volar tilt and bringing plate to bone of the?distal?fragment and plate.? Once I was satisfied with my plate position as well as reduction of the?distal?radius?which was confirmed on AP oblique and lateral imaging I then subsequently drilled measured and placed 3 locking screws around this cortical screw.? Then I subsequently removed the cortical screw and placed a shorter locking screw that did not penetrate the dorsal cortex.?? This completed my?distal?fixation.? I did utilize mini C arm to confirm appropriate placement of the screws these were all within the?distal?radius?and no joint involvement within the radiocarpal joint or the DRUJ.? These had appropriate subchondral support and maintenance of reduction and fixation of the?distal?radius?fracture.? ?I then turned my attention proximally and then I screwed in the locking guides for my final to screws proximally these were then subsequently drilled measured and appropriate length locking screws were then placed proximally with excellent fixation and locking technology into the plate.? This completed my construct.? The peek guide was subsequently removed and final imaging of the left?distal?radius?open reduction internal fixation was taken of AP lateral as well and is orthogonal imaging.? I then took a inclination view which showed my radial styloid screw was out of the penetration of the joint.? All my?distal?screws were appropriate length did not penetrate dorsal cortex and did not penetrate the joint.? This completed my fixation.? Smooth wrist range of motion was then noted with no evidence of clicking. Wrist was then taken through pronation supination and stressed the DRUJ which was found to be stable.? The wound was then thoroughly irrigated.? Tourniquet was then subsequently deflated.? Hemostasis satisfactory with bipolar electrocautery.? I then subsequently placed interrupted 3-0 Vicryl sutures for subcutaneous tissue and then subsequently placed a nylon the skin for closure.? Incision was then dressed with Xeroform 4 x 4's Kerlix cast padding and a volar Ortho-Glass splint was then applied with Khai wrap and placed in a sling.? Disposition: Patient taken to PACU in stable condition recovering well receive appropriate discharge instructions as well as pain medication postoperatively.? Maintain splint until follow-up.? Nonweightbearing to operative upper extremity We will follow-up with Dr. Sheehan in the office in 2 weeks.? If any questions or concerns feel free to contact the office.
--- NOTE | 2025-09-05 21:39 | PC.NURSE ---
2044 Dr Sheehan at bedside to assess both right and left arm dressings as well as right finger edema - instructed to elevate and ice right wrist
--- NOTE | 2025-09-05 21:40 | PC.NURSE ---
2119 - BRADLEY Ruggiero at pts bedside to assess pain - ok per PRIMARY CARE PROVIDER to transport pt to floor
[2025-09-05] MEDS: HYDROmorphone 0.5 MG/0.5 ML INJ IVP (23:06)
[2025-09-06 02:00] VITALS: BP 122/57; PULSE 96; RESP 17; TEMP 36.7; O2SAT 98
[2025-09-06 02:33] VITALS: BP 115/51; PULSE 89; RESP 16; TEMP 36.6; O2SAT 96
[2025-09-06] MEDS: ceFAZolin 2,000 MG in sodium chloride 0.9% (plus) 50 ML 100 MG IV ×2 (02:48→12:01)
[2025-09-06 05:00] VITALS: BP 117/48; PULSE 93; RESP 16; TEMP 36.6; O2SAT 96
[2025-09-06] MEDS: chlorhexidine gluconate 0.12% Btl 473 mL 30 ML MUCOUS MEM ×2 (05:03→12:02)
[2025-09-06] MEDS: multivitamin therapeutic Tablet 1 TAB PO (05:04)
[2025-09-06] MEDS: calcium carb-vit d 600mg/400unit 1 Tablet 1 EACH PO (05:04)
[2025-09-06] MEDS: HYDROcodone-acetaminophen 5-325 mg Tablet PO ×2 (05:17→09:24)
[2025-09-06 08:00] VITALS: BP 123/80; PULSE 82; RESP 16; TEMP 36.8; O2SAT 98
[2025-09-06] MEDS: polyethylene glycol 3350 Pkt 17 gm PO (09:24)
[2025-09-06] MEDS: sodium chlor 0.9% + KCl 20 mEq 20 MEQ/1,000 ML BAG 100 MEQ IV (09:38)
--- NOTE | 2025-09-06 10:55 | PM.DCS ---
Discharge Providers Date of Admission: 09/05/25 00:00 Date of Discharge: September 06, 2025 Attending Provider at Admission: Teddy Enriquez MD Attending Provider at Discharge: LISSETT Carreno, SALESPERSON [employer]PLIANCES Diagnoses at Discharge Discharge Diagnosis 1. Wrist fracture, bilateral: Details from hospital stay: Patient has bilateral distal radial fractures as well as a left ulnar styloid. Dr. Prater and Dr. Sheehan have reviewed and discussed surgical plan as well as management of all the trauma. Hospitalist service admission as consult for management of wrist pain and IV fluid prescription Day 1 postop Pain and nausea are managed Discharge planning with follow-up to orthopedics in 2 weeks 2. Abnormal liver enzymes: Details from hospital stay: Patient sustained 15 foot drop with injury to bilateral wrists and abdomen Liver enzymes elevated at AST 104, ALT 119 Repeated liver labs prior to discharge; Now improved AST 32, ALT 49 Follow up with PCP 3. Hyponatremia: Details from hospital stay: Fluids Electrolyte monitoring 4. Tachycardia: Details from hospital stay: normal saline with 20 mg potassium chloride at 100 cc an hour Reason for Visit Reason for Visit: uncontrolled pain broken wrists Hospital Course Hospital Course Светлана Patel is a 20 year old female is a student at [employer]. The patient was in the [facility] area staying in a hotel and decided to climb on construction site next door and the building collapsed and she fell 15 feet and sustained abdominal injury and bilateral fractured wrists. She was observed from 2 AM in the emergency department and then briefly in the hospital from 7 AM to 2 PM and discharged from [facility]. They did not have follow-up for wrist fracture other than following up at [facility] and so elected to go to another ER. Dr. Prater discussed case with Dr. Sheehan who requests hospitalist assistance with admission and has scheduled surgery for the morning. Patient states her abdominal pain is still present but improved from this morning. Dr. Prater repeated chest abdomen pelvis CT scan no acute findings. Patient has history of celiac disease and alpha gal. She also has some anxiety that she takes hydroxyzine but is on no other medications. No allergies. She does have GI upset with doxycycline. Patient also has an IUD. Progress Note: Patient left for pre-op at approximately 1500. Surgery started at approximately 1845. 09/06/25: Patient is day 1 postop.? She is laying in bed resting at time of interview.? Grandmother stayed overnight here at bedside.? Patient reports that her pain is managed and does not currently have nausea.? She tolerated physical therapy assessment.? Okay to discharge from orthopedics standpoint with follow-up in 2 weeks.? Patient is awaiting a repeat liver panel as her fall primarily impacted her wrists bilaterally and her abdomen. ?Monitored to see that liver labs trended in the correct direction prior to discharge, and they did improve (AST 32, ALT 49). Physical Exam Narrative: General well-developed well-nourished, AAOX4 CV regular rate and rhythm Lungs clear to auscultation bilaterally Mild abdominal pain Skin warm and dry Mentation alert and oriented x 3 Discharge Data Studies Completed and Pending Completed Studies During Hospitalization Category Date Time Status CT chest abdomen pelvis [CT chest abdpel w/*[id number] Cat Scan 09/04/25 19:51 Completed ] Stat XR elbow LT min 3V* [id number] Stat Exams 09/04/25 19:51 Completed XR elbow RT min 3V* [id number] Stat Exams 09/04/25 19:51 Completed XR wrist LT min 3V* [id number] Stat Exams 09/04/25 19:51 Completed XR wrist RT min 3V* [id number] Stat Exams 09/04/25 19:51 Completed Pending at discharge Category Date Time Status Liver Panel Stat Lab 09/06/25 10:47 Received Radiology Impressions Chest/Abdomen/Pelvis CT 09/04/25 19:51 IMPRESSION: No acute findings within the chest. IMPRESSION: 1. No acute findings in the abdomen or pelvis. 2. Bilateral distal radial fractures Elbow X-Ray 09/04/25 19:51 IMPRESSION: Limited exam. No fracture is identified. Wrist X-Ray 09/04/25 19:51 IMPRESSION: Fracture of the distal left radius and ulnar styloid in splint. Laboratory Results WBC 9.65 10^3/uL (4.5-13.0) 09/04/25 21:25 RBC 4.15 10^6/uL (3.85-5.65) 09/04/25 21:25 Hgb 12.80 g/dL (12.4-14.8) 09/04/25 21:25 Hct 37.0 % (36-47) 09/04/25: MCV 89.2 fl (85-98) 09/04/25: MCH 30.8 pg (27-33) 09/04/25: MCHC 34.6 g/dL (30-55) 09/04/25: RDW 11.4 % (12.1-15.1) L 09/04/25: Plt Count 381 10^3/cmm (157-399) 09/04/25: MPV 8.9 fL (7.4-10.4) 09/04/25: Neut % (Auto) 61.0 % 09/04/25: Lymph % (Auto) 22.3 % 09/04/25: [place] % (Auto) 15.8 % 09/04/25 Eos % (Auto) 0.4 % 09/04/25 Baso % (Auto) 0.3 % 09/04/25 Neut # (Auto) 5.89 10^3/uL (1.8-8.0) 09/04/25: Lymph # (Auto) 2.2 10^3/uL (1.5-6.5) 09/04/25: [place] # (Auto) 1.5 10^3/uL (0.2-0.9) H 09/04/25: Eos # (Auto) 0.0 10^3/uL (0.0-0.8) 09/04/25 Baso # (Auto) 0.0 10^3/uL (0.0-0.1) 09/04/25: Nucleated RBC % (auto) 0 % 09/04/25 Nucleated RBCs # 0.0 /100WBC 09/04/25: Sodium 134 mmol/L (136-145) L 09/04/25: Potassium 3.8 mmol/L (3.5-5.1) 09/04/25: Chloride 98 mmol/L (98-107) 09/04/25: Carbon Dioxide 19 mmol/L (22-29) L 09/04/25: Anion Gap 20.8 (5-19) H 09/04/25: BUN 10 mg/dL (6-20) 09/04/25: Creatinine 0.7 mg/dL (0.5-0.9) 09/04/25: GFR Calculation 106.7 mL/min (90-130) 09/04/25: Glucose 90 mg/dL (65-115) 09/04/25: Calculated Osmolality 277 mOsm/kg (285-295) L 09/04/25: Calcium 9.6 mg/dL (8.5-10.5) 09/04/25: Total Bilirubin 1.0 mg/dL (0.15-1.2) 09/04/25: AST 104 U/L (0-32) H 09/04/25: ALT 119 U/L (0-33) H 09/04/25: Alkaline Phosphatase 80 U/L (35-105) 09/04/25: Total Protein 7.7 g/dL (6.6-8.7) 09/04/25: Albumin 4.8 g/dL (3.5-5.2) 09/04/25: Globulin 2.9 g/dL (1.3-4.6) 09/04/25: Lipase 21 U/L (13-60) 09/04/25: HCG, Qual Negative (Negative) 09/04/25: Vitals Last Vital Signs Temp 98.2 F 09/06/25 08:00 Pulse 82 09/06/25 08:00 Resp 16 09/06/25 08:00 BP 123/80 09/06/25 08:00 Pulse Ox 98 09/06/25 08:00 O2 Del Method Room Air 09/06/25 08:00 O2 Flow Rate 2 09/05/25 21:33 Discharge Plan Discharge Patient Disposition: Home Condition: Stable Prescriptions: Continued hydroxyzine pamoate 25 mg capsule 25 mg PO Q6H PRN (Reason: Anxiety) Changed hydrocodone-acetaminophen 10-325 mg tablet 1 tab PO Q6H PRN (Reason: Pain) 5 Days Qty: 0 0RF Education Reporter OK for DC: Orthopedics Discharge Order = DC NOW: Discharge Order (Routine); Ordered 09/06/25 Ordered By: Mona Goodman Referrals: Iraj Sheehan DO [Physician, Orthopedics] - 2 weeks Discharge Diet: Advance as tolerated Discharge Activity: Limit activity as instructed Patient Instructions: Acute Wound Care (DC), Opioid Safety, Post Anesthesia Care, Patient Portal & Jh Instructions Activity Restrictions/Additional Instructions: Postop Distal Radius Orthopedic discharge instructions: Patient should be nonweightbearing to the operative extremities May loosen Khai bandage to the splint if too tight Maintain splints until follow-up Keep splint clean dry and intact Elevation and ice as needed for pain and swelling Encourage elbow and finger range of motion Take pain medication as prescribed Take antinausea medication as needed Supplement with Citracal vitamin D for bone health and healing Follow-up with Dr. Sheehan in the office in 2 weeks Contact the office for any questions or concerns Discharge Attestations Time Spent in Discharge Care*: greater than 30 min Quality Metrics Clinical Quality Measures [ No reported AMI, CVA or VTE this stay] Coding Level of Care Code 41510 Other Coding Information Shared care Diagnoses Wrist fracture, bilateral S62.101A; S62.102A Abnormal liver enzymes R74.8 Hyponatremia E87.1 Tachycardia R00.0
[2025-09-06 11:08] VITALS: BP 150/98; PULSE 92; RESP 18; TEMP 37.2; O2SAT 98
[2025-09-06 11:23] LABS: Alanine Aminotransferase 49 U/L (0-33); Albumin Level 4.0 g/dL (3.5-5.2); Alkaline Phosphatase 73 U/L (35-105); Aspartate Amino Transferase 32 U/L (0-32); Globulin 3.1 g/dL (1.3-4.6); Total Protein 7.1 g/dL (6.6-8.7)
--- NOTE | 2025-09-06 12:05 | P.PN_ITS ---
Subjective 2 Subjective: Patient seen and examined today she is recovering well ready to discharge home grandmother at bedside. Splints on in place. Vitals/I&O/Wt Last Vital Signs Temp 99.0 F 09/06/25 11:08 Pulse 92 09/06/25 11:08 Resp 18 09/06/25 11:08 BP 150/98 09/06/25 11:08 Pulse Ox 98 09/06/25 11:08 O2 Del Method Room Air 09/06/25 11:08 O2 Flow Rate 2 09/05/25 21:33 09/05/25 09/06/25 09/06/25 22:59 06:59 14:59 Intake Total 1450 / 2420 590 / 3010 1000 / 1000 Output Total 30 / 30 Balance 1420 / 2390 590 / 2980 1000 / 1000 Weight last 48 hrs Weight 135 lb 1.6 oz Weight 135 lb 6.4 oz Weight 120 lb Physical Exam 2 Narrative: Bilateral volar splints on in place of bilateral upper extremities bilateral upper extremities fingertips are warm well-perfused brisk cap refill less than 2 seconds, block worn off, she is able to perform all cardinal hand movements to the bilateral upper extremities of AIN/PIN/radial/ulnar/median nerve is intact sensations intact light touch to the radial/ulnar/median nerve distribution compartments are soft compressible. Patient has normal postoperative tenderness to palpation. Data 09/04/25 21:25 09/04/25 21:25 A&P Assessment and plan 1. Wrist fracture, bilateral: Plan: Postop day 1 bilateral distal radius ORIF Bilateral volar splints on in place Slings as needed for Labs reviewed Hospitalist admitted patient Orthopedics consulted Nonweightbearing bilateral upper extremities Pain control Elevation and ice Stable for discharge from a orthopedic standpoint orthopedic surgery team will sign off patient at this time follow peripherally if there is any question pertaining to the patient's care prefer to contact orthopedics on-call patient to follow-up in the orthopedic office in 2 weeks patient understands agrees to current plan. Questions answered. PDMP PDMP Reviewed: Not Reviewed Attestations 2 Medical Necessity Statement*: Status post bilateral distal radius ORIF?per primary Coding Level of Care Code Acute Code for [facility] Fwd Diagnoses Wrist fracture, bilateral S62.101A; S62.102A
[2025-09-06 15:04] VITALS: BP 150/98; PULSE 92; RESP 18; TEMP 37.2; O2SAT 98
== END 2025-09-06 15:05 | disposition home or self-care (01) ==
LOC: ER 20:00 → MEDSURG 09-05 00:28
PROVIDERS: Student in an Organized Health Care Education/Training Program; Admitting Provider Internal Medicine; Emergency Provider Student in an Organized Health Care Education/Training Program; Visit Provider Clinical Nurse Specialist Acute Care
PROC: (CPT 64415; principal; 2025-09-05 14:15)
DX: S52.572A Other intraarticular fracture of lower end of left radius, initial encounter for closed fracture (principal); S52.571A Other intraarticular fracture of lower end of right radius, initial encounter for closed fracture; W17.89XA Other fall from one level to another, initial encounter; R74.8 Abnormal levels of other serum enzymes; E87.1 Hypo-osmolality and hyponatremia; R00.0 Tachycardia, unspecified; Z91.014 Allergy to mammalian meats; F41.9 Anxiety disorder, unspecified; Z79.891 Long term (current) use of opiate analgesic
CPT/HCPCS: 64415; 25609; 71260; 73080; 73110; 74177; 80053; 80076; 83690; 84703; 85025; 94664; 96372; 96374; 96375; 97140; 97167; 99285; A9281; C1713; G0378; J0131; J0690; J1100; J1171; J1200; J1885; J2250; J2270; J2405; J3010; J3480; J3490; J7030; J9999